=== PATIENT | female | born 1935 | race Caucasian/White ===

== ENCOUNTER 2016-07-12 | Outpatient (CLI) | END 2016-07-12 18:16 | disposition EMS.NT ==

== ENCOUNTER 2016-10-25 11:09 | Outpatient (CLI) | payer MEDICARE, OTHER | END 2016-10-25 11:10 | disposition home or self-care (01) | DX: Z12.31 Encounter for screening mammogram for malignant neoplasm of breast (principal); Z79.899 Other long term (current) drug therapy; H26.9 Unspecified cataract; H40.9 Unspecified glaucoma; N30.20 Other chronic cystitis without hematuria; I63.9 Cerebral infarction, unspecified; M81.0 Age-related osteoporosis without current pathological fracture; K59.00 Constipation, unspecified; R32 Unspecified urinary incontinence; R73.01 Impaired fasting glucose | CPT/HCPCS: 36415; 80053; 80061; 82306; 83036; 84443; 85025; G0202 ==

== ENCOUNTER 2016-10-28 06:45 | Outpatient (CLI) | payer MEDICARE, OTHER | END 2016-10-28 06:46 | disposition home or self-care (01) | DX: N30.20 Other chronic cystitis without hematuria (principal); Z79.899 Other long term (current) drug therapy; H26.9 Unspecified cataract; H40.9 Unspecified glaucoma; I63.9 Cerebral infarction, unspecified; M81.0 Age-related osteoporosis without current pathological fracture; R73.01 Impaired fasting glucose; K59.00 Constipation, unspecified; R32 Unspecified urinary incontinence ==

== ENCOUNTER 2017-10-28 14:53 | Outpatient (CLI) | payer MEDICARE, OTHER ==
--- NOTE | 2017-10-29 13:43 | Ultrasound Report ---
CAROTID DUPLEX: 10/28/2017. INDICATION: Transient vision loss, left eye, history of stroke. TECHNIQUE: Real-time sonographic vascular imaging was performed by the senior energy analyst through the carotid arteries utilizing both color-flow and Doppler spectral analysis. Multiple international sales representative static images were saved for review. RIGHT 3 Vessel PSV cm/sec EDV cm/sec ICA/CCA RSV Ratio Degree of Stenosis Plaque Estimate % RCCA Prox 119 -- -- RCCA Dist 89 1 -- RECA 91 -- -- RT BULB 68 7 0.76 EDD Prox 52 8 0.58 EDD Mid 77 15 0.86 EDD Dist 56 1 0.62 RVA 94 -- -- RVA flow direction: Antegrade LEFT 3 Vessel PSV cm/sec EDV cm/sec ICA/CCA RSV Ratio Degree of Stenosis Plaque Estimate % LCCA Prox 94 -- -- LCCA Dist 83 1 -- LECA 79 -- -- LFT BULB 86 1 1.0 LICA Prox 116 23 1.5 LICA Mid 97 21 1.1 LICA Dist 108 29 1.3 LVA 130 -- -- LVA flow direction: Antegrade Velocity criteria are extrapolated from diameter data as defined by the Society of Radiologists in Ultrasound Consensus Conference Radiology 2003; 229; 340-346. 3 Degree of Stenosis % ICA PSV cm/sec ICA EDV cm/sec ICA/CCA PSV Ratio Plaque Estimate % Normal < 125 < 40 < 2.0 None <50 < 125 < 40 < 2.0 < 50 50-69 125-130 40-100 2.0-4.0 >/=50 >/=70 but less than near occlusion > 230 > 100 > 4.0 >/=50 Near occlusion High, low or undetectable Variable Variable Visible Total occlusion Undetectable Not applicable Not applicable No detectable lumen FINDINGS RIGHT: There is minimal plaquing in the right carotid bifurcation, without evidence of a focal hemodynamically significant stenosis. LEFT: There is minimal plaquing in the left carotid bifurcation, without evidence of a focal hemodynamically significant stenosis. The vertebral arteries demonstrate antegrade flow bilaterally. IMPRESSION: MINIMAL PLAQUING. NO EVIDENCE OF A FOCAL HEMODYNAMICALLY SIGNIFICANT CAROTID STENOSIS. TD: 10/29/2017 13:42 Table rec'd/completed 10/30/2017 09:44 derick NAILS
== END 2017-10-28 14:54 | disposition home or self-care (01) ==
LOC: DI 14:53
PROVIDERS: ATTEND Internal Medicine
DX: H53.122 Transient visual loss, left eye (principal); Z86.73 Personal history of transient ischemic attack (TIA), and cerebral infarction without residual deficits
CPT/HCPCS: 93880

== ENCOUNTER 2017-12-16 11:24 | Outpatient (CLI) | payer MEDICARE, OTHER ==
[2017-12-16 12:12] LABS: BASOPHILS % (AUTO) 0.6 %; EOSINOPHILS # (AUTO) 0.1 10^3/uL (0.0-0.7); EOSINOPHILS % (AUTO) 2.2 %; HGB - HEMOGLOBIN 14.7 g/dL (12.0-16.0); LYMPHOCYTES # (AUTO) 1.8 10^3/uL (1.5-3.5); LYMPHOCYTES % (AUTO) 28.4 %; MEAN CORPUSCULAR HEMOGLOBIN 30.4 pg (27.0-31.0); MEAN CORPUSCULAR HGB CONC 33.4 g/dL (32.0-36.0); MONOCYTES # (AUTO) 0.5 10^3/uL (0.0-1.0); MONOCYTES % (AUTO) 8.4 %; NEUTROPHILS # (AUTO) 3.7 10^3/uL (1.5-6.6); NEUTROPHILS % (AUTO) 60.4 %; PLT - PLATELET COUNT 233 10^3/uL (130-450); RED BLOOD COUNT 4.84 10^6/uL (4.20-5.40); RED CELL DISTRIBUTION WIDTH 13.9 % (12.0-15.0); WHITE BLOOD COUNT 6.2 x10^3/uL (4.8-10.8)
[2017-12-16 12:28] LABS: ALBUMIN/GLOBULIN RATIO 1.2 (1.0-2.2); ALKALINE PHOSPHATASE 71 IU/L (42-121); ALT ALANINE AMINOTRANSFERASE 23 IU/L (10-60); AST ASPARTATE AMINOTRANSFERASE 24 IU/L (10-42); BILIRUBIN,TOTAL 0.6 mg/dL (0.2-1.0); BUN - BLOOD UREA NITROGEN 16 mg/dL (6-20); CALCIUM 10.1 mg/dL (8.5-10.3); CARBON DIOXIDE - CO2 28 mmol/L (21-32); CHLORIDE 106 mmol/L (101-111); CHOL/HDL RATIO 2.7 (<4.4); CHOLESTEROL 194 mg/dL; CREATININE 0.6 mg/dL (0.4-1.0); GFR - MDRD 96 (>89); GLUCOSE 91 mg/dL (70-100); HDL CHOLESTEROL 72 mg/dL; LDL CHOLESTEROL,CALCULATED 107 mg/dL; LDL/HDL RATIO 1.5 (<4.4); SODIUM 140 mmol/L (135-145); TOTAL PROTEIN 7.3 g/dL (6.7-8.2); VLDL CHOLESTEROL 15 mg/dL
[2017-12-16 13:07] LABS: HB2 TOTAL 16.2 g/dL; HEMOGLOBIN A1C 0.54 g/dL; HEMOGLOBIN A1C % 5.2 % (4.6-6.2)
== END 2017-12-16 11:25 | disposition home or self-care (01) ==
LOC: LAB 11:24
PROVIDERS: ATTEND Internal Medicine
DX: Z79.899 Other long term (current) drug therapy (principal); H26.9 Unspecified cataract; H40.9 Unspecified glaucoma; G43.909 Migraine, unspecified, not intractable, without status migrainosus; I63.9 Cerebral infarction, unspecified; M81.0 Age-related osteoporosis without current pathological fracture; Z13.6 Encounter for screening for cardiovascular disorders
CPT/HCPCS: 36415; 80053; 80061; 82306; 83036; 83721; 84443; 85025

== ENCOUNTER 2017-12-16 12:15 | Outpatient (CLI) | payer MEDICARE, OTHER ==
--- NOTE | 2017-12-17 13:41 | Mammography Report ---
Procedure Date: 12/16/2017 Accession Number: [id number] / [id number] Procedure: JOSE LUIS - Screening Mammo Dig Bilat CPT Code: FULL RESULT: EXAM: Screening Mammo Dig Bilat DATE: 12/16/2017 11:48 AM CLINICAL HISTORY: 82-year-old nulliparous patient for screening COMPARISON: 10/25/2016, 09/14/2015, 08/24/2015, 01/27/2014, 01/23/2012, 11/22/2010 TECHNIQUE: Bilateral CC and MLO views were obtained. Positioning is again limited by patient's general condition. FINDINGS: The breasts demonstrate scattered fibroglandular densities bilaterally. A few punctate, typical of benign calcifications are present. No suspicious masses, clustered microcalcifications, or regions of architectural distortion are identified. IMPRESSION: Benign findings RECOMMENDATION: Routine annual screening unless otherwise clinically indicated. BIRADS CATEGORY 2: Benign findings STANDARD QUALIFYING STATEMENTS: 1. This examination was reviewed with the aid of Computer-Aided Detection (CAD). 2. A negative or benign imaging report should not delay biopsy if clinically suspicious findings are present. Consider surgical consultation if warrented. More than 5% of cancers are not identified by imaging. 3. Dense breasts may obscure an underlying neoplasm.
== END 2017-12-16 12:16 | disposition home or self-care (01) ==
LOC: DI 12:15
PROVIDERS: ATTEND Internal Medicine
DX: Z12.31 Encounter for screening mammogram for malignant neoplasm of breast (principal)
CPT/HCPCS: 77067

== ENCOUNTER 2020-08-26 10:46 | Outpatient (CLI) | payer MEDICARE, OTHER ==
[2020-08-26 14:56] LABS: BASOPHILS % (AUTO) 0.5 %; EOSINOPHILS # (AUTO) 0.1 10^3/uL (0.0-0.7); EOSINOPHILS % (AUTO) 1.2 %; HGB - HEMOGLOBIN 13.8 g/dL (12.0-16.0); LYMPHOCYTES # (AUTO) 1.7 10^3/uL (1.5-3.5); LYMPHOCYTES % (AUTO) 28.7 %; MEAN CORPUSCULAR HEMOGLOBIN 28.9 pg (27.0-31.0); MEAN CORPUSCULAR HGB CONC 31.4 g/dL (32.0-36.0); MEAN CORPUSCULAR VOLUME 91.8 fL (81.0-99.0); MEAN PLATELET VOLUME 10.8 fL (7.9-10.8); MONOCYTES # (AUTO) 0.4 10^3/uL (0.0-1.0); MONOCYTES % (AUTO) 7.4 %; NEUTROPHILS # (AUTO) 3.7 10^3/uL (1.5-6.6); NEUTROPHILS % (AUTO) 61.9 %; PLT - PLATELET COUNT 233 10^3/uL (130-450); RED BLOOD COUNT 4.78 10^6/uL (4.20-5.40); RED CELL DISTRIBUTION WIDTH 14.6 % (12.0-15.0)
[2020-08-26 15:12] LABS: HEMOGLOBIN A1c% 5.5 % (4.27-6.07)
[2020-08-26 15:20] LABS: ALBUMIN 4.2 g/dL (3.2-5.5); ALBUMIN/GLOBULIN RATIO 1.2 (1.0-2.2); ALKALINE PHOSPHATASE 93 IU/L (42-121); ALT ALANINE AMINOTRANSFERASE 18 IU/L (10-60); AST ASPARTATE AMINOTRANSFERASE 24 IU/L (10-42); BILIRUBIN,TOTAL 0.7 mg/dL (0.2-1.0); BUN - BLOOD UREA NITROGEN 17 mg/dL (6-20); CALCIUM 9.8 mg/dL (8.5-10.3); CARBON DIOXIDE - CO2 26 mmol/L (21-32); CHLORIDE 102 mmol/L (101-111); CHOL/HDL RATIO 2.4 (<4.4); CHOLESTEROL 193 mg/dL; CREATININE 0.7 mg/dL (0.4-1.0); GLUCOSE 76 mg/dL (70-100); HDL CHOLESTEROL 82 mg/dL; LDL CHOLESTEROL,CALCULATED 101 mg/dL; LDL/HDL RATIO 1.2 (<4.4); TOTAL PROTEIN 7.7 g/dL (6.7-8.2); VLDL CHOLESTEROL 10 mg/dL
== END 2020-08-26 10:47 | disposition home or self-care (01) ==
LOC: LAB.S 10:46
PROVIDERS: ATTEND Internal Medicine
DX: Z01.84 Encounter for antibody response examination (principal); H26.9 Unspecified cataract; Z13.6 Encounter for screening for cardiovascular disorders; Z79.899 Other long term (current) drug therapy; H40.9 Unspecified glaucoma; K59.00 Constipation, unspecified; N30.90 Cystitis, unspecified without hematuria; R73.01 Impaired fasting glucose; B34.9 Viral infection, unspecified; M81.0 Age-related osteoporosis without current pathological fracture
CPT/HCPCS: 36415; 80053; 80061; 82306; 83036; 83721; 84443; 85025; 86769

== ENCOUNTER 2020-12-01 08:46 | Outpatient (CLI) | payer MEDICARE, OTHER | END 2020-12-01 08:47 | disposition EMS.NT | LOC: EMS 08:46 | DX: Z03.89 Encounter for observation for other suspected diseases and conditions ruled out (principal) ==

== ENCOUNTER 2020-12-02 12:20 | Outpatient (CLI) | payer MEDICARE, OTHER | END 2020-12-02 12:21 | disposition critical access hospital (66) | LOC: EMS 12:20 | DX: R41.0 Disorientation, unspecified (principal) | CPT/HCPCS: A0425; A0429 ==

== ENCOUNTER 2020-12-02 12:55 | Emergency (ER) | payer MEDICARE, OTHER ==
[2020-12-02] MEDS ORDERED: SODIUM CHLORIDE 0.9% 1,000 ML IV STA ×2 (13:35→13:36)
[2020-12-02 13:41] LABS: BASOPHILS # (AUTO) 0.1 10^3/uL (0.0-0.1); BASOPHILS % (AUTO) 0.3 %; EOSINOPHILS # (AUTO) 0.1 10^3/uL (0.0-0.7); EOSINOPHILS % (AUTO) 0.7 %; HCT - HEMATOCRIT 33.9 % (37.0-47.0); HGB - HEMOGLOBIN 10.8 g/dL (12.0-16.0); LYMPHOCYTES # (AUTO) 1.2 10^3/uL (1.5-3.5); LYMPHOCYTES % (AUTO) 7.2 %; MEAN CORPUSCULAR HGB CONC 31.9 g/dL (32.0-36.0); MEAN CORPUSCULAR VOLUME 90.9 fL (81.0-99.0); MEAN PLATELET VOLUME 10.4 fL (7.9-10.8); MONOCYTES # (AUTO) 1.2 10^3/uL (0.0-1.0); MONOCYTES % (AUTO) 7.1 %; NEUTROPHILS # (AUTO) 13.8 10^3/uL (1.5-6.6); NEUTROPHILS % (AUTO) 84.1 %; PLT - PLATELET COUNT 174 10^3/uL (130-450); RED BLOOD COUNT 3.73 10^6/uL (4.20-5.40); RED CELL DISTRIBUTION WIDTH 14.8 % (12.0-15.0); WHITE BLOOD COUNT 16.4 x10^3/uL (4.8-10.8)
--- NOTE | 2020-12-02 13:42 | ED Physician Documentation ---
PD HPI ALTERED MENTAL STATUS - Stated complaint Stated Complaint: AMS - Chief complaint Chief Complaint: Neuro - History obtained from History obtained from: Patient, EMS - History of Present Illness Timing - duration: Days (Several days) Timing - details: Gradual onset Quality / character: Confused, Disoriented - Additional information Additional information: Limited history is available. Patient is an 85-year-old female who reportedly lives at home with caregivers. EMS states that they saw her yesterday for a fall, has had increasing altered mental status for the past week or so. Caregiver called 911 today as it seems worse than it has been. They state that she had a fever 101.8 at home. 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 No other history is available at this time. Unclear what her normal baseline is, but EMS states that this is a significant change for her. 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 - Present Medications Home Medications: Ambulatory Orders Medication Instructions Recorded Confirmed Mirabegron [Myrbetriq] 25 mg PO DAILY 12/02/20 12/02/20 - Allergies Allergies/Adverse Reactions: Allergies Allergy/AdvReac Type Severity Reaction Status Date / Time No Known Drug Allergies Allergy Verified 12/02/20 13:07 PD ED PE NORMAL - Vitals Vital signs reviewed: Yes - General General: No acute distress, Well developed/nourished - HEENT HEENT: Atraumatic, PERRL, Moist mucous membranes, Pharynx benign - Neck Neck: Supple, no meningeal sign - Cardiac Cardiac: RRR, Strong equal pulses - Respiratory Respiratory: No respiratory distress, Clear bilaterally - Abdomen Abdomen: Soft, Non tender, Non distended - Derm Derm: Warm and dry, Other (Large fungal rash underneath the bilateral breasts) - Extremities Extremities: No edema, No calf tenderness / cord - Neuro Neuro: Other (Alert, oriented to person only, contractured) Eye Opening: Spontaneous Motor: Localizes to Pain Verbal: Confused GCS Score: 13 Results - Vitals Vitals: Vital Signs - 24 hr 12/02/20 12/02/20 12/02/20 13:03 13:37 15:00 Temperature 37.4 C 37.2 C 36.7 C Heart Rate 106 H 89 92 Respiratory 12 20 22 Rate Blood Pressure 117/50 L 99/78 125/57 L O2 Saturation 94 95 97 12/02/20 12/02/20 12/02/20 15:30 16:00 16:30 Temperature 36.2 C L 36.4 C L 38.0 C H Heart Rate 95 95 95 Respiratory 16 16 16 Rate Blood Pressure 127/94 H 114/69 132/78 H O2 Saturation 97 97 95 12/02/20 17:00 Temperature 38.0 C H Heart Rate 97 Respiratory 16 Rate Blood Pressure 125/65 O2 Saturation 97 Oxygen O2 Source Room air - EKG (time done) 1449 Rate: Rate (enter#) (106) Rhythm: Atrial fibrillation [place]: Normal - Labs Labs: Laboratory Tests 12/02/20 12/02/20 12/02/20 13:19 13:19 13:19 WBC 16.4 H RBC 3.73 L Hgb 10.8 L Hct 33.9 L MCV 90.9 MCH 29.0 MCHC 31.9 L RDW 14.8 Plt Count 174 MPV 10.4 Neut # (Auto) 13.8 H Lymph # (Auto) 1.2 L Wise # (Auto) 1.2 H Eos # (Auto) 0.1 Baso # (Auto) 0.1 Absolute Nucleated RBC 0.00 Nucleated RBC % 0.0 PT INR APTT Sodium 139 Potassium 3.6 Chloride 104 Carbon Dioxide 26 Anion Gap 9.0 BUN 40 H Creatinine 1.1 H Estimated GFR (MDRD) 47 L Glucose 115 H Lactic Acid Calcium 8.4 L Total Bilirubin 1.1 H AST 72 H ALT 38 Alkaline Phosphatase 74 Troponin I High Sens 60.7 H* Total Protein 6.6 L Albumin 3.4 Globulin 3.2 Albumin/Globulin Ratio 1.1 Lipase 19 L Urine Color Urine Clarity Urine pH Ur Specific Mccrory Urine Protein Urine Glucose (UA) Urine Ketones Urine Occult Blood Urine Nitrite Urine Bilirubin Urine Urobilinogen Ur Leukocyte Esterase Urine RBC Urine WBC Ur Squamous Epith Cells Urine Bacteria Ur Microscopic Review Urine Culture Comments Nasal Adenovirus (PCR) Nasal B. parapertussis DNA (PCR) Nasal Coronavir 229E PCR Nasal Coronavir HKU1 PCR Nasal Coronavir NL63 PCR Nasal Coronavir OC43 PCR Nasal Enterovir/Rhinovir PCR Nasal Influenza B PCR Nasal Influenza A PCR Nasal Parainfluen 1 PCR Nasal Parainfluen 2 PCR Nasal Parainfluen 3 PCR Nasal Parainfluen 4 PCR Nasal RSV (PCR) Nasal B.pertussis DNA PCR Nasal C.pneumoniae (PCR) Brian Human Metapneumo PCR Nasal M.pneumoniae (PCR) Nasal SARS-CoV-2 (PCR) 12/02/20 12/02/20 12/02/20 13:19 13:36 14:33 WBC RBC Hgb Hct MCV MCH MCHC RDW Plt Count MPV Neut # (Auto) Lymph # (Auto) Wise # (Auto) Eos # (Auto) Baso # (Auto) Absolute Nucleated RBC Nucleated RBC % PT 15.3 H INR 1.4 H APTT 31.4 Sodium Potassium Chloride Carbon Dioxide Anion Gap BUN Creatinine Estimated GFR (MDRD) Glucose Lactic Acid 1.8 Calcium Total Bilirubin AST ALT Alkaline Phosphatase Troponin I High Sens Total Protein Albumin Globulin Albumin/Globulin Ratio Lipase Urine Color LT RED Urine Clarity CLOUDY Urine pH 5.5 Ur Specific Mccrory 1.025 Urine Protein 100 H Urine Glucose (UA) NEGATIVE Urine Ketones NEGATIVE Urine Occult Blood LARGE H Urine Nitrite POSITIVE H Urine Bilirubin NEGATIVE Urine Urobilinogen 0.2 (NORMAL) Ur Leukocyte Esterase LARGE H Urine RBC TNTC H Urine WBC >25 H Ur Squamous Epith Cells RARE Squamous Urine Bacteria Many H Ur Microscopic Review INDICATED Urine Culture Comments INDICATED Nasal Adenovirus (PCR) Nasal B. parapertussis DNA (PCR) Nasal Coronavir 229E PCR Nasal Coronavir HKU1 PCR Nasal Coronavir NL63 PCR Nasal Coronavir OC43 PCR Nasal Enterovir/Rhinovir PCR Nasal Influenza B PCR Nasal Influenza A PCR Nasal Parainfluen 1 PCR Nasal Parainfluen 2 PCR Nasal Parainfluen 3 PCR Nasal Parainfluen 4 PCR Nasal RSV (PCR) Nasal B.pertussis DNA PCR Nasal C.pneumoniae (PCR) Brian Human Metapneumo PCR Nasal M.pneumoniae (PCR) Nasal SARS-CoV-2 (PCR) 12/02/20 15:41 WBC RBC Hgb Hct MCV MCH MCHC RDW Plt Count MPV Neut # (Auto) Lymph # (Auto) Wise # (Auto) Eos # (Auto) Baso # (Auto) Absolute Nucleated RBC Nucleated RBC % PT INR APTT Sodium Potassium Chloride Carbon Dioxide Anion Gap BUN Creatinine Estimated GFR (MDRD) Glucose Lactic Acid Calcium Total Bilirubin AST ALT Alkaline Phosphatase Troponin I High Sens Total Protein Albumin Globulin Albumin/Globulin Ratio Lipase Urine Color Urine Clarity Urine pH Ur Specific Mccrory Urine Protein Urine Glucose (UA) Urine Ketones Urine Occult Blood Urine Nitrite Urine Bilirubin Urine Urobilinogen Ur Leukocyte Esterase Urine RBC Urine WBC Ur Squamous Epith Cells Urine Bacteria Ur Microscopic Review Urine Culture Comments Nasal Adenovirus (PCR) NOT DETECTED Nasal B. parapertussis DNA (PCR) NOT DETECTED Nasal Coronavir 229E PCR NOT DETECTED Nasal Coronavir HKU1 PCR NOT DETECTED Nasal Coronavir NL63 PCR NOT DETECTED Nasal Coronavir OC43 PCR NOT DETECTED Nasal Enterovir/Rhinovir PCR NOT DETECTED Nasal Influenza B PCR NOT DETECTED Nasal Influenza A PCR NOT DETECTED Nasal Parainfluen 1 PCR NOT DETECTED Nasal Parainfluen 2 PCR NOT DETECTED Nasal Parainfluen 3 PCR NOT DETECTED Nasal Parainfluen 4 PCR NOT DETECTED Nasal RSV (PCR) NOT DETECTED Nasal B.pertussis DNA PCR NOT DETECTED Nasal C.pneumoniae (PCR) NOT DETECTED Brian Human Metapneumo PCR NOT DETECTED Nasal M.pneumoniae (PCR) NOT DETECTED Nasal SARS-CoV-2 (PCR) NOT DETECTED - Rads (name of study) head CT Radiology: Prelim report reviewed, EMP read contemporaneously, See rad report (1. No acute intracranial disease process. ) abd/pelvis CT Radiology: Prelim report reviewed, EMP read contemporaneously, See rad report PD MEDICAL DECISION MAKING - ED course Complexity details: reviewed results, re-evaluated patient, considered differential, d/w patient ED course: 85-year-old female with pyelonephritis and a 1.8 cm left UPJ stone with hydronephrosis, likely secondary to obstructive uropathy. She was febrile at home. Elevated white count here. Given IV fluids and Rocephin. Mental status did improve. Vital signs remained stable. Discussed the case with Dr. Michael, urology at [facility] who graciously accepts in transfer. Discussed with Dr. Rosales, hospitalist who also accepts in transfer. Patient will be transferred for further care. This document was made in part using voice recognition software. While efforts are made to proofread this document, sound alike and grammatical errors may occur. CT ABD/PELVIS: 1. 1.8 cm left UPJ stone causing mild left hydronephrosis. 2. Decreased and slightly striated postcontrast enhancement involving the left kidney concerning for pyelonephritis superimposed upon obstructive uropathy. There is also a small air locule and inferior left renal calyx concerning for flexion with gas-forming organism. 3. Cardiomegaly. Departure - Departure Disposition: 02 Transfer Acute Care Hosp Clinical Impression: Pyelonephritis, Ureteral stone Condition: Stable Discharge Date/Time: 12/02/20 17:22
--- OUTSIDE RECORDS SUMMARY | 2020-12-02 13:48 | EXTERNAL MEDICAL SUMMARY RPT | Continuity of Care Document ---
:1935 Demographics Phone Unavailable Preferred Language Unknown Marital Status Unknown Ep[employer]opalian Affiliation Unknown Race Unknown Ethnic Group Unknown Author Organization [facility] Address [address] [place] [address] Phone Allergies Encounters Medications Problems Results
[2020-12-02 13:49] LABS: INR 1.4 (0.8-1.2); PT - PROTHROMBIN TIME 15.3 secs (9.9-12.6)
[2020-12-02 13:52] LABS: ALBUMIN 3.4 g/dL (3.2-5.5); ALBUMIN/GLOBULIN RATIO 1.1 (1.0-2.2); BILIRUBIN,TOTAL 1.1 mg/dL (0.2-1.0); CALCIUM 8.4 mg/dL (8.5-10.3); CREATININE 1.1 mg/dL (0.4-1.0); POTASSIUM 3.6 mmol/L (3.5-5.0); TOTAL PROTEIN 6.6 g/dL (6.7-8.2)
[2020-12-02 13:55] LABS: BILIRUBIN,URINE NEGATIVE (NEGATIVE); GLUCOSE, URINE (UA) NEGATIVE (NEGATIVE); KETONES,URINE (UA) NEGATIVE (NEGATIVE); LEUKOCYTE ESTERASE, URINE LARGE (NEGATIVE); NITRITE,URINE POSITIVE (NEGATIVE); OCCULT BLOOD,URINE LARGE (NEGATIVE); PH,URINE 5.5 PH (5.0-7.5); PROTEIN,URINE 100 mg/dL (NEGATIVE); UROBILINOGEN,URINE 0.2 (NORMAL) E.U./dL (NORMAL)
[2020-12-02 13:57] LABS: CLARITY,URINE CLOUDY (CLEAR)
[2020-12-02] MEDS ORDERED: cefTRIAXone 1 GM VIAL IVP STA (14:06)
[2020-12-02] MEDS ORDERED: IOVERSOL 320 100 ML VIAL IVP ONE ×2 (14:13→15:10)
[2020-12-02 14:40] LABS: PARTIAL THROMBOPLASTIN TIME 31.4 secs (24.9-33.3)
--- NOTE | 2020-12-02 14:41 | XRAY Report ---
PROCEDURE: Chest 1 View X-Ray INDICATIONS: Chest pain TECHNIQUE: One view of the chest was acquired. COMPARISON: FINDINGS: Surgical changes and devices: None. Lungs and pleura: No pleural effusions or pneumothorax. Lungs are clear where visualized; left lung base is incompletely imaged.. Mediastinum: Mediastinal contours appear normal. Heart is enlarged Bones and chest wall: No suspicious bony lesions. Overlying soft tissues appear unremarkable. IMPRESSION: No acute cardiopulmonary disease process. Reviewed by: India Leung MD, PhD on 12/02/2020 2:39 PM PDT Approved by: India Leung MD, PhD on 12/02/2020 2:39 PM PDT Station ID: [id number]
--- NOTE | 2020-12-02 14:48 | CT Report ---
PROCEDURE: Abdomen/Pelvis W INDICATIONS: fever, UTI CONTRAST: IV CONTRAST: Optiray 320 ml: 100 PO CONTRAST: *NO PO CONTRAST TECHNIQUE: After the administration of intravenous contrast, 5 mm thick sections acquired from the diaphragms to the symphysis. 5 mm thick coronal and sagittal reformats were acquired. For radiation dose reducti on, the following was used: automated exposure control, adjustment of mA and/or kV according to jose r ent size. COMPARISON: 01/23/2012. FINDINGS: Image quality: Excellent. ABDOMEN: Lung bases: Lung bases are clear. Heart is enlarged. Solid organs: Liver and spleen are normal in size and enhancement. Gallbladder contains multiple ga llstones Biliary system is non dilated. Pancreas enhances normally. No adrenal nodules. 1.8 cm sto ne noted in the left UPJ causing mild left side hydronephrosis. 5.1 cm left renal cyst. Left kidney d emonstrates decreased, slightly striated enhancement relative to the right concerning for pyelonephri tis superimposed upon obstruction. Small air locule noted in the inferior left renal calyx concerning for infection with infection with gas-forming organism. Peritoneum and bowel: Bowel loops demonstrate normal wall thickness and caliber. No free fluid or a ir. Nodes and vessels: No retroperitoneal or mesenteric adenopathy by size criteria. Aorta and inferior vena cava are normal in size. Scattered atherosclerotic calcifications are noted in the abdominal an d pelvic vasculature. Miscellaneous: No ventral hernias. PELVIS: Genitourinary: Bladder is nearly completely decompressed the time of imaging which limits diagnostic sensitivity of study February pathology, however no gross pathology identified. Miscellaneous: No inguinal hernias or adenopathy. Bones: Status post ORIF of right proximal femur fracture. No suspicious bony lesions. No vertebral body compression fractures. Spine degenerative disc disease and facet arthropathy are noted. IMPRESSION: 1. 1.8 cm left UPJ stone causing mild left hydronephrosis. 2. Decreased and slightly striated postcontrast enhancement involving the left kidney concerning for pyelonephritis superimposed upon obstructive uropathy. There is also a small air locule and inferior left renal calyx concerning for flexion with gas-forming organism. 3. Cardiomegaly. Reviewed by: India Leung MD, PhD on 12/02/2020 2:47 PM PDT Approved by: India Leung MD, PhD on 12/02/2020 2:47 PM PDT Station ID: [id number]
--- NOTE | 2020-12-02 14:51 | CT Report ---
PROCEDURE: HEAD WO INDICATIONS: fall, altered mental status TECHNIQUE: Noncontrast 4.5 mm thick angled axial sections acquired from the foramen magnum to the vertex. For r adiation dose reduction, the following was used: automated exposure control, adjustment of mA and/or kV according to patient size. COMPARISON: None FINDINGS: Image quality: Excellent. CSF spaces: Basal cisterns are patent. No extra-axial fluid collections. The ventricles are symmet mauro in size and shape. Brain: No intracranial bleeds or masses. Chronic left basal ganglia infarct. There is cerebral volu me loss for age, with resultant ventricular and sulcal prominence. There are periventricular and gino p white matter chronic small vessel ischemic changes. There is intracranial internal carotid artery atherosclerosis. Skull and face: Calvarium and visualized facial bones appear intact, without suspicious lesions. Sinuses: Visualized sinuses and mastoids are clear. IMPRESSION: 1. No acute intracranial disease process. 2. No fracture. 3. No intracranial hemorrhage. Reviewed by: India Leung MD, PhD on 12/02/2020 2:50 PM PDT Approved by: India Leung MD, PhD on 12/02/2020 2:50 PM PDT Station ID: [id number]
[2020-12-02 14:55] LABS: BACTERIA,URINE Many /HPF (None Seen); RBC,URINE TNTC /HPF (0-5); SQUAMOUS EPITHELIAL CELL,UR RARE Squamous (<= Few); WBC,URINE >25 /HPF (0-5)
[2020-12-02 16:42] LABS: B. PARAPERTUSSIS- RESP PCR PAN NOT DETECTED; B. PERTUSSIS- RESP PCR PANEL NOT DETECTED; C. PNEUMONIAE- RESP PCR PANEL NOT DETECTED; CORONAVIRUS 229E-RESP PCR NOT DETECTED; CORONAVIRUS HKU1-RESP PCR NOT DETECTED; CORONAVIRUS NL63-RESP PCR NOT DETECTED; CORONAVIRUS OC43-RESP PCR NOT DETECTED; HUMAN METAPNEUMOVIRUS NOT DETECTED; INFLUENZA A- RESP PCR PANEL NOT DETECTED; INFLUENZA B - RESP PCR PANEL NOT DETECTED; M. PNEUMONIAE- RESP PCR PANEL NOT DETECTED; PARAINFLUENZA VIRUS 1 NOT DETECTED; PARAINFLUENZA VIRUS 2 NOT DETECTED; PARAINFLUENZA VIRUS 3 NOT DETECTED; PARAINFLUENZA VIRUS 4 NOT DETECTED; RHINOVIRUS/ENTEROVIRUS NOT DETECTED; RSV- RESP PCR PANEL NOT DETECTED; SARS-CoV-2 -RESP PCR PANEL NOT DETECTED
[2020-12-02 17:16] VITALS: BP 125/65
== END 2020-12-02 17:22 | disposition short-term general hospital (02) ==
LOC: EDUNIT# → ED 12:55
DX: N13.6 Pyonephrosis (principal); I48.91 Unspecified atrial fibrillation; B36.8 Other specified superficial mycoses; M24.50 Contracture, unspecified joint; I69.998 Other sequelae following unspecified cerebrovascular disease; Z20.822 Contact with and (suspected) exposure to COVID-19
CPT/HCPCS: 36415; 70450; 71045; 74177; 80053; 81001; 83605; 83690; 84484; 85025; 85610; 85730; 87040; 87086; 87150; 87181; 87631; 93005; 96361; 96374; 99285; Q9967; 0202U; 81003

== ENCOUNTER 2020-12-02 17:23 | Outpatient (CLI) | payer MEDICARE, OTHER | END 2020-12-02 17:24 | disposition short-term general hospital (02) | LOC: EMS 17:23 | PROVIDERS: ATTEND Emergency Medicine | DX: N12 Tubulo-interstitial nephritis, not specified as acute or chronic (principal); N13.9 Obstructive and reflux uropathy, unspecified | CPT/HCPCS: A0425; A0426 ==

== ENCOUNTER 2020-12-28 12:15 | Outpatient (CLI) | payer MEDICARE, OTHER | END 2020-12-28 23:59 | disposition home or self-care (01) | LOC: LAB.R 12:15 | PROVIDERS: ATTEND Family Medicine | DX: N39.0 Urinary tract infection, site not specified (principal) | CPT/HCPCS: 87086 ==

== ENCOUNTER 2021-01-11 08:00 | Outpatient (CLI) | payer MEDICARE, OTHER ==
[2021-01-11 21:24] LABS: BASOPHILS % (AUTO) 0.4 %; EOSINOPHILS # (AUTO) 0.5 10^3/uL (0.0-0.7); EOSINOPHILS % (AUTO) 4.8 %; HCT - HEMATOCRIT 37.4 % (37.0-47.0); HGB - HEMOGLOBIN 11.7 g/dL (12.0-16.0); LYMPHOCYTES # (AUTO) 3.1 10^3/uL (1.5-3.5); LYMPHOCYTES % (AUTO) 29.3 %; MEAN CORPUSCULAR HEMOGLOBIN 28.3 pg (27.0-31.0); MEAN CORPUSCULAR HGB CONC 31.3 g/dL (32.0-36.0); MEAN CORPUSCULAR VOLUME 90.6 fL (81.0-99.0); MEAN PLATELET VOLUME 9.8 fL (7.9-10.8); MONOCYTES # (AUTO) 0.7 10^3/uL (0.0-1.0); MONOCYTES % (AUTO) 6.8 %; NEUTROPHILS # (AUTO) 6.1 10^3/uL (1.5-6.6); NEUTROPHILS % (AUTO) 58.3 %; PLT - PLATELET COUNT 359 10^3/uL (130-450); RED BLOOD COUNT 4.13 10^6/uL (4.20-5.40); RED CELL DISTRIBUTION WIDTH 14.6 % (12.0-15.0); WHITE BLOOD COUNT 10.5 x10^3/uL (4.8-10.8)
[2021-01-11 21:32] LABS: CALCIUM 9.1 mg/dL (8.5-10.3); CREATININE 0.6 mg/dL (0.4-1.0); POTASSIUM 2.7 mmol/L (3.5-5.0)
== END 2021-01-11 23:59 | disposition home or self-care (01) ==
LOC: LAB.R 08:00
DX: I48.91 Unspecified atrial fibrillation (principal); R53.1 Weakness
CPT/HCPCS: 80048; 85025

== ENCOUNTER 2021-01-15 10:47 | Outpatient (CLI) | payer MEDICARE, OTHER ==
--- NOTE | 2021-01-15 14:02 | XRAY Report ---
PROCEDURE: Femur 2V RT INDICATIONS: S/P CLOSED FX OF FEMUR TECHNIQUE: AP and lateral views of the femur were acquired. COMPARISON: None. FINDINGS: Bones: Remote hip ORIF. There is an IM lex which bridges a comminuted distal shaft fracture of the fe mur. There is mild displacement of fracture fragment posteriorly. There is no calcified formation maximiliano dent. No suspicious bony lesions. Soft tissues: No suspicious soft tissue calcifications or masses. Diffuse SFA calcifications. IMPRESSION: 1. An IM lex bridges a comminuted distal femoral shaft fracture. There are no prior studies available for comparison. It is assumed that the fracture occurred prior to the ORIF. There is no evidence of callus formation. Reviewed by: Sheldon Oliva MD on 01/15/2021 2:00 PM PDT Approved by: Sheldon Oliva MD on 01/15/2021 2:00 PM PDT Station ID: [id number]
== END 2021-01-15 10:48 | disposition home or self-care (01) ==
LOC: DI 10:47
PROVIDERS: ATTEND Orthopaedic Surgery
DX: S72.351A Displaced comminuted fracture of shaft of right femur, initial encounter for closed fracture (principal)

== ENCOUNTER 2021-01-22 07:00 | Outpatient (CLI) | payer MEDICARE, OTHER ==
[2021-01-22 13:37] LABS: CALCIUM 9.3 mg/dL (8.5-10.3); CREATININE 0.8 mg/dL (0.4-1.0); POTASSIUM 4.3 mmol/L (3.5-5.0)
== END 2021-01-22 23:59 | disposition home or self-care (01) ==
LOC: LAB.R 07:00
PROVIDERS: ATTEND Family Medicine
DX: E87.6 Hypokalemia (principal); I48.91 Unspecified atrial fibrillation
CPT/HCPCS: 80048

== ENCOUNTER 2021-02-05 07:00 | Outpatient (CLI) | payer MEDICARE, OTHER ==
[2021-02-05 22:46] LABS: CALCIUM 9.3 mg/dL (8.5-10.3); CREATININE 0.9 mg/dL (0.4-1.0)
== END 2021-02-05 23:59 | disposition home or self-care (01) ==
LOC: LAB.R 07:00
DX: E87.6 Hypokalemia (principal)
CPT/HCPCS: 80048

== ENCOUNTER 2021-02-23 14:32 | Outpatient (CLI) | payer MEDICARE, OTHER ==
--- NOTE | 2021-02-23 17:15 | XRAY Report ---
PROCEDURE: Femur 2V RT INDICATIONS: FEMUR FX TECHNIQUE: 2 views of the femur were acquired. COMPARISON: Prior to the femoral series dated 01/15/2021 FINDINGS: Bones: Stable bony alignment status post ORIF of distal femoral shaft fracture. Femoral intramedullar y lex is in expected position as well as multiple associated fixation screws. No significant interval change in appearance or alignment of the healing distal femoral shaft fracture or fracture lucencies are still visible. Background osteoarthritic changes. Soft tissues: No suspicious soft tissue calci fications or masses. IMPRESSION: Stable postsurgical sequelae and bony alignment involving the distal femoral diaphyseal fracture. Reviewed by: CHICHO Rosas on 02/23/2021 5:13 PM PDT Approved by: Nahun Alexander MD on 02/23/2021 5:13 PM PDT Station ID: [id number]
== END 2021-02-23 14:33 | disposition home or self-care (01) ==
LOC: DI 14:32
PROVIDERS: ATTEND Family Medicine
DX: S72.491D Other fracture of lower end of right femur, subsequent encounter for closed fracture with routine healing (principal)

== ENCOUNTER 2021-02-24 20:45 | Outpatient (CLI) | payer MEDICARE, OTHER ==
[2021-02-24 21:50] LABS: BASOPHILS # (AUTO) 0.1 10^3/uL (0.0-0.1); BASOPHILS % (AUTO) 0.5 %; EOSINOPHILS # (AUTO) 0.2 10^3/uL (0.0-0.7); EOSINOPHILS % (AUTO) 2.6 %; HCT - HEMATOCRIT 38.2 % (37.0-47.0); HGB - HEMOGLOBIN 12.4 g/dL (12.0-16.0); LYMPHOCYTES # (AUTO) 3.2 10^3/uL (1.5-3.5); LYMPHOCYTES % (AUTO) 35.5 %; MEAN CORPUSCULAR HEMOGLOBIN 27.7 pg (27.0-31.0); MEAN CORPUSCULAR HGB CONC 32.5 g/dL (32.0-36.0); MEAN CORPUSCULAR VOLUME 85.5 fL (81.0-99.0); MONOCYTES # (AUTO) 0.9 10^3/uL (0.0-1.0); MONOCYTES % (AUTO) 9.4 %; NEUTROPHILS # (AUTO) 4.7 10^3/uL (1.5-6.6); NEUTROPHILS % (AUTO) 51.8 %; PLT - PLATELET COUNT 299 10^3/uL (130-450); RED BLOOD COUNT 4.47 10^6/uL (4.20-5.40); RED CELL DISTRIBUTION WIDTH 15.5 % (12.0-15.0); WHITE BLOOD COUNT 9.1 x10^3/uL (4.8-10.8)
[2021-02-24 21:56] LABS: CALCIUM 9.2 mg/dL (8.5-10.3); CREATININE 0.6 mg/dL (0.4-1.0); POTASSIUM 4.9 mmol/L (3.5-5.0)
== END 2021-02-24 23:59 | disposition home or self-care (01) ==
LOC: LAB.R 20:45
DX: E87.6 Hypokalemia (principal); R63.4 Abnormal weight loss
CPT/HCPCS: 80048; 85025

== ENCOUNTER 2021-03-01 17:10 | Outpatient (CLI) | payer MEDICARE, OTHER ==
[2021-03-01 17:48] LABS: BILIRUBIN,URINE NEGATIVE (NEGATIVE); GLUCOSE, URINE (UA) NEGATIVE (NEGATIVE); KETONES,URINE (UA) NEGATIVE (NEGATIVE); LEUKOCYTE ESTERASE, URINE LARGE (NEGATIVE); NITRITE,URINE NEGATIVE (NEGATIVE); OCCULT BLOOD,URINE LARGE (NEGATIVE); PROTEIN,URINE 100 mg/dL (NEGATIVE); UROBILINOGEN,URINE 0.2 (NORMAL) E.U./dL (NORMAL)
[2021-03-01 18:14] LABS: BACTERIA,URINE Rare /HPF (None Seen); CLARITY,URINE SL. CLOUDY (CLEAR); SQUAMOUS EPITHELIAL CELL,UR RARE Squamous (<= Few); WBC,URINE >25 /HPF (0-5)
== END 2021-03-01 23:59 | disposition home or self-care (01) ==
LOC: LAB.R 17:10
DX: R30.0 Dysuria (principal)
CPT/HCPCS: 81001; 81003; 87086

== ENCOUNTER 2021-03-05 15:47 | Outpatient (CLI) | payer MEDICARE, OTHER ==
[2021-03-05 18:08] LABS: BILIRUBIN,URINE NEGATIVE (NEGATIVE); GLUCOSE, URINE (UA) NEGATIVE (NEGATIVE); KETONES,URINE (UA) NEGATIVE (NEGATIVE); LEUKOCYTE ESTERASE, URINE LARGE (NEGATIVE); NITRITE,URINE NEGATIVE (NEGATIVE); OCCULT BLOOD,URINE LARGE (NEGATIVE); PH,URINE 6.5 PH (5.0-7.5); PROTEIN,URINE 100 mg/dL (NEGATIVE); UROBILINOGEN,URINE 0.2 (NORMAL) E.U./dL (NORMAL)
[2021-03-05 18:26] LABS: CLARITY,URINE CLOUDY (CLEAR)
[2021-03-05 19:13] LABS: BACTERIA,URINE Many /HPF (None Seen); SQUAMOUS EPITHELIAL CELL,UR MANY Squamous (<= Few); WBC,URINE >25 /HPF (0-5)
== END 2021-03-05 23:59 | disposition home or self-care (01) ==
LOC: LAB.R 15:47
DX: R35.0 Frequency of micturition (principal); R39.15 Urgency of urination
CPT/HCPCS: 81001; 81003; 87086

== ENCOUNTER 2021-03-07 11:27 | Outpatient (CLI) | payer MEDICARE, OTHER ==
[2021-03-07 12:00] LABS: BILIRUBIN,URINE NEGATIVE (NEGATIVE); GLUCOSE, URINE (UA) NEGATIVE (NEGATIVE); KETONES,URINE (UA) NEGATIVE (NEGATIVE); LEUKOCYTE ESTERASE, URINE LARGE (NEGATIVE); NITRITE,URINE NEGATIVE (NEGATIVE); OCCULT BLOOD,URINE LARGE (NEGATIVE); PH,URINE 6.5 PH (5.0-7.5); PROTEIN,URINE 100 mg/dL (NEGATIVE); UROBILINOGEN,URINE 0.2 (NORMAL) E.U./dL (NORMAL)
[2021-03-07 12:18] LABS: CLARITY,URINE CLOUDY (CLEAR); WBC CLUMPS,URINE PRESENT; WBC,URINE >25 /HPF (0-5)
[2021-03-07 12:21] LABS: BACTERIA,URINE Many /HPF (None Seen); SQUAMOUS EPITHELIAL CELL,UR FEW Squamous (<= Few)
== END 2021-03-07 11:28 | disposition home or self-care (01) ==
LOC: LAB 11:27
PROVIDERS: ATTEND Family Medicine
DX: N39.0 Urinary tract infection, site not specified (principal); N77.1 Vaginitis, vulvitis and vulvovaginitis in diseases classified elsewhere
CPT/HCPCS: 81001; 87070; 87077; 87086; 87181

== ENCOUNTER 2021-03-07 16:45 | Outpatient (CLI) | payer MEDICARE, OTHER | END 2021-03-07 23:59 | disposition home or self-care (01) | LOC: LAB.R 16:45 | DX: N77.1 Vaginitis, vulvitis and vulvovaginitis in diseases classified elsewhere (principal) | CPT/HCPCS: 87070; 87077; 87181 ==

== ENCOUNTER 2021-03-10 15:50 | Outpatient (CLI) | payer MEDICARE, OTHER | END 2021-03-10 23:59 | disposition home or self-care (01) | LOC: LAB.R 15:50 | DX: E55.9 Vitamin D deficiency, unspecified (principal) | CPT/HCPCS: 82306 ==

== ENCOUNTER 2021-03-12 09:04 | Outpatient (CLI) | payer MEDICARE, OTHER | END 2021-03-12 09:05 | disposition critical access hospital (66) | LOC: EMS 09:04 | DX: R41.82 Altered mental status, unspecified (principal) | CPT/HCPCS: A0425; A0427 ==

== ENCOUNTER 2021-03-12 09:09 | Inpatient (IN) | payer MEDICARE, OTHER ==
--- NOTE | 2021-03-12 09:48 | ED Physician Documentation ---
PD HPI ALTERED MENTAL STATUS - Stated complaint Stated Complaint: AMS - Chief complaint Chief Complaint: Neuro - History obtained from History obtained from: Patient, EMS, Caregiver - History of Present Illness Timing - onset: How many days ago (Has been a bit agitated and less oral intake for the last several days. Had urinalysis showing UTI with culture positive. Started on Cipro in the last 2 days. 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 - Present Medications Home Medications: Ambulatory Orders Medication Instructions Recorded Confirmed Atorvastatin [Lipitor] 20 mg PO QPM 03/12/21 03/12/21 Ciprofloxacin HCl 500 mg PO BID 03/12/21 03/12/21 Mirtazapine [Remeron] 7.5 mg PO QPM 03/12/21 03/12/21 - Allergies Allergies/Adverse Reactions: Allergies Allergy/AdvReac Type Severity Reaction Status Date / Time No Known Drug Allergies Allergy Verified 03/12/21 09:23 - Social History Does the pt smoke?: No Smoking Status: Never smoker Does the pt drink ETOH?: No Does the pt have substance abuse?: No Results - Vitals Vitals: Vital Signs - 24 hr 03/12/21 03/12/21 03/12/21 09:10 09:23 10:15 Temperature 35.4 C L Heart Rate 152 H 155 H Respiratory 20 24 24 Rate Blood Pressure 115/93 H 118/95 H O2 Saturation 100 93 Oxygen O2 Source Nasal cannula Oxygen Flow Rate 2 - EKG (time done) 10:02 Rate: Rate (enter#) (170) Rhythm: Atrial fibrillation Intervals: RBBB Ischemia: Non specific changes. No: ST elevation c/w ischemia - Labs Labs: Laboratory Tests 03/12/21 03/12/21 03/12/21 10:38 10:38 10:43 WBC 32.7 H RBC 5.82 H Hgb 16.2 H Hct 50.6 H MCV 86.9 MCH 27.8 MCHC 32.0 RDW 18.9 H Plt Count 219 MPV 10.0 Neut # (Auto) 28.3 H Lymph # (Auto) 2.3 [place] # (Auto) 1.7 H Eos # (Auto) 0.0 Baso # (Auto) 0.1 Absolute Nucleated RBC 0.00 Nucleated RBC % 0.0 Manual Slide Review Indicated Platelet Estimate NORMAL (130-450,000) Platelet Morphology NORMAL APPEARANCE RBC Morph Micro Appear NORMAL APPEARANCE Sodium Potassium Chloride Carbon Dioxide Anion Gap BUN Creatinine Estimated GFR (MDRD) Glucose Lactic Acid 5.0 H* Calcium Phosphorus Magnesium Total Bilirubin AST ALT Alkaline Phosphatase Troponin I High Sens 63.2 H* B-Natriuretic Peptide Total Protein Albumin Globulin Albumin/Globulin Ratio Lipase 03/12/21 03/12/21 03/12/21 11:31 11:31 11:31 WBC RBC Hgb Hct MCV MCH MCHC RDW Plt Count MPV Neut # (Auto) Lymph # (Auto) [place] # (Auto) Eos # (Auto) Baso # (Auto) Absolute Nucleated RBC Nucleated RBC % Manual Slide Review Platelet Estimate Platelet Morphology RBC Morph Micro Appear Sodium 142 Potassium 6.9 H* Chloride 112 H Carbon Dioxide 10 L* Anion Gap 20.0 H BUN 91 H* Creatinine 2.8 H Estimated GFR (MDRD) 16 L Glucose 195 H Lactic Acid Calcium 10.3 Phosphorus 5.7 H Magnesium Total Bilirubin 0.8 AST 36 ALT < 10 L Alkaline Phosphatase 112 Troponin I High Sens B-Natriuretic Peptide 230 H Total Protein 7.6 Albumin 3.7 Globulin 3.9 Albumin/Globulin Ratio 0.9 L Lipase 40 03/12/21 11:31 WBC RBC Hgb Hct MCV MCH MCHC RDW Plt Count MPV Neut # (Auto) Lymph # (Auto) [place] # (Auto) Eos # (Auto) Baso # (Auto) Absolute Nucleated RBC Nucleated RBC % Manual Slide Review Platelet Estimate Platelet Morphology RBC Morph Micro Appear Sodium Potassium Chloride Carbon Dioxide Anion Gap BUN Creatinine Estimated GFR (MDRD) Glucose Lactic Acid Calcium Phosphorus Magnesium 3.1 H Total Bilirubin AST ALT Alkaline Phosphatase Troponin I High Sens B-Natriuretic Peptide Total Protein Albumin Globulin Albumin/Globulin Ratio Lipase - Rads (name of study) chest xray Radiology: Prelim report reviewed (normal, no infiltrates. ), See rad report KUB CT Radiology: Prelim report reviewed (stent in place left side, no hydroureter. ), See rad report PD MEDICAL DECISION MAKING - ED course Complexity details: reviewed results (CXR does not look like CHF. HR is slowed to 100-110 with Diltiazem x 2 doses. Pt more alert and better color. Labs showing GALLO, low BNP, so will give IV fluids now as seems less CHF. ), re- evaluated patient (Heart rate is improved with doses of diltiazem. Is now approximately 100. I cannot tell if in failure initially so held fluids to begin with. Will now give more fluids for apparent likely sepsis and GALLO. She is appearing more alert.), considered differential (recent UTI, with ill now, so presume sepsis, but I am concerned about the dyspnea, congested lung sounds and rapid atrial fib, for potential CHF/edema or pneumonia. Did not give much fluid initially until better assessment. ), d/w patient, d/w family (talked with her son at home, who confirms pt POLST of full interventions. ) - Critical Care Time(min): 40 Time Includes: Direct patient care, Reassess patient, Coordinate care, Medical consult, Family consult for tx dec Data interpretation: Labs, Pulse ox, CXR Procedures excluded from critical care time: EKG Departure - Departure Disposition: 66 [facility] DC/Xfer Clinical Impression: Atrial fibrillation with rapid ventricular response, GALLO (acute kidney injury), Dehydration UTI (urinary tract infection) Qualifiers: Urinary tract infection type: site unspecified Hematuria presence: without hematuria Qualified Code(s): N39.0 - Urinary tract infection, site not specified Sepsis Qualifiers: Sepsis type: sepsis due to unspecified organism Sepsis acute organ dysfunction status: unspecified Qualified Code(s): A41.9 - Sepsis, unspecified organism Condition: Stable Discharge Date/Time: 03/12/21 13:30
[2021-03-12] MEDS ORDERED: ALBUTEROL NEB 2.5 MG/3 ML INH STA (09:51)
[2021-03-12] MEDS ORDERED: diltiaZEM INJ 5 MG/ML VIAL IVP STA ×3 (09:53→12:38)
[2021-03-12] MEDS ORDERED: cefTRIAXone 1 GM VIAL IVP STA (09:55)
--- NOTE | 2021-03-12 10:15 | XRAY Report ---
PROCEDURE: Chest 1 View X-Ray INDICATIONS: chest pain TECHNIQUE: One view of the chest was acquired. COMPARISON: 12/02/2020 FINDINGS: Surgical changes and devices: None. Lungs and pleura: No pleural effusions or pneumothorax. Lungs are clear. Mediastinum: Mediastinal contours appear normal. Heart size is normal. Calcification is seen of th e aortic arch. Bones and chest wall: No suspicious bony lesions. Age-appropriate degenerative changes are seen. Re mote, healed right posterolateral rib fractures are seen. Deformity is seen of the right humeral head , which is unchanged compared to the prior and attributed to a remote fracture. Overlying soft tissue s appear unremarkable. IMPRESSION: Portable chest within normal limits for age. Incidental note is made of: Remote, healed right posterolateral rib fractures Apparent remote fracture of the right humeral head, stable Reviewed by: Abner Zhang MD on 03/12/2021 9:14 AM JONATAN Approved by: Abner Zhang MD on 03/12/2021 9:14 AM JONATAN Station ID: [id number]
[2021-03-12] MEDS ORDERED: SODIUM CHLORIDE 0.9% 250 ML IV STA (10:19)
[2021-03-12 10:47] LABS: BASOPHILS # (AUTO) 0.1 10^3/uL (0.0-0.1); BASOPHILS % (AUTO) 0.2 %; HCT - HEMATOCRIT 50.6 % (37.0-47.0); HGB - HEMOGLOBIN 16.2 g/dL (12.0-16.0); LYMPHOCYTES # (AUTO) 2.3 10^3/uL (1.5-3.5); LYMPHOCYTES % (AUTO) 7.2 %; MEAN CORPUSCULAR HEMOGLOBIN 27.8 pg (27.0-31.0); MEAN CORPUSCULAR VOLUME 86.9 fL (81.0-99.0); MONOCYTES # (AUTO) 1.7 10^3/uL (0.0-1.0); MONOCYTES % (AUTO) 5.1 %; NEUTROPHILS # (AUTO) 28.3 10^3/uL (1.5-6.6); NEUTROPHILS % (AUTO) 86.6 %; PLT - PLATELET COUNT 219 10^3/uL (130-450); RED BLOOD COUNT 5.82 10^6/uL (4.20-5.40); RED CELL DISTRIBUTION WIDTH 18.9 % (12.0-15.0); WHITE BLOOD COUNT 32.7 x10^3/uL (4.8-10.8)
[2021-03-12 11:00] LABS: SLIDE REVIEW? Indicated
[2021-03-12 11:11] LABS: PLATELET ESTIMATE, MANUAL NORMAL (130-450,000) (NORMAL); PLATELET MORPHOLOGY NORMAL APPEARANCE (NORMAL); RBC MORPHOLOGY (MULTIPLE) NORMAL APPEARANCE (NORMAL)
[2021-03-12 11:57] LABS: ALBUMIN 3.7 g/dL (3.2-5.5); ALBUMIN/GLOBULIN RATIO 0.9 (1.0-2.2); ALKALINE PHOSPHATASE 112 IU/L (42-121); AST ASPARTATE AMINOTRANSFERASE 36 IU/L (10-42); BILIRUBIN,TOTAL 0.8 mg/dL (0.2-1.0); CALCIUM 10.3 mg/dL (8.5-10.3); CHLORIDE 112 mmol/L (101-111); CREATININE 2.8 mg/dL (0.4-1.0); GFR - MDRD 16 (>89); GLUCOSE 195 mg/dL (70-100); LIPASE 40 U/L (22-51); SODIUM 142 mmol/L (135-145); TOTAL PROTEIN 7.6 g/dL (6.7-8.2)
[2021-03-12 11:58] LABS: ALT ALANINE AMINOTRANSFERASE < 10 IU/L (10-60)
[2021-03-12 12:00] LABS: BUN - BLOOD UREA NITROGEN 91 mg/dL (6-20); CARBON DIOXIDE - CO2 10 mmol/L (21-32); POTASSIUM 6.9 mmol/L (3.5-5.0)
[2021-03-12] MEDS ORDERED: SODIUM CHLORIDE 0.9% 1,000 ML IV STA (12:12)
[2021-03-12] MEDS ORDERED: SODIUM BICARBONATE ABBOJECT 50 MEQ/50 ML SYRINGE IVP ONE (12:13)
--- NOTE | 2021-03-12 12:21 | CT Report ---
PROCEDURE: Abdomen/Pelvis WO INDICATIONS: UTI, ? sepsis; eval for obstruction TECHNIQUE: Noncontrast 5 mm thick sections acquired from the diaphragms to the symphysis. 5 mm coronal and sagi ttal reformats were then performed. For radiation dose reduction, the following was used: automated exposure control, adjustment of mA and/or kV according to patient size. COMPARISON: 12/02/2020. Correlation is also made with the accompanying chest radiograph, 03/12/2021. FINDINGS: Image quality: Motion artifact is noted. There is streak artifact seen in the upper abdomen. ABDOMEN: Lung bases: Minimal patchy right lower lobe infiltrate can be seen. Heart size is normal. Solid organs: Liver and spleen are normal in size. Gallbladder demonstrates gallstones within its l umen Pancreas is normal in contours. No adrenal nodules. There is a left-sided double-J stent seen.No hydronephrosis is seen on either side. There is a water density 4.9 cm cyst seen along the anterior superior aspect of the left kidney. A staghorn type calc ulus is seen involving the inferior left kidney that measures up to 3 cm. Peritoneum and bowel: Unenhanced bowel loops demonstrate normal wall thickness and caliber. No free fluid or air. There is a prominent amount of stool seen at the rectal vault. The rectal wall measur es 8.3 cm transversely. Nodes and vessels: No retroperitoneal or mesenteric adenopathy by size criteria. Aorta and inferior vena cava are normal in caliber. Miscellaneous: No ventral hernias. PELVIS: Genitourinary: Bladder wall thickness is normal. This patient is status post hysterectomy. No adnex al masses can be seen. Miscellaneous: No inguinal hernias or adenopathy. Bones: Pectus excavatum deformity is partially seen. No suspicious bony lesions. No vertebral body compression fractures. Degenerative changes are seen throughout, which are worst involving the lumba r spine and the hips. Postoperative change of the right proximal femur can be seen. IMPRESSION: There is a left-sided double-J stent seen in place. No hydronephrosis is seen on either side. There is a 3 cm staghorn type calculus involving the inferior left kidney. Minimal patchy right lower lobe infiltrate can be seen. Infection is suspected, although differential diagnosis would also include inflammatory change or atelectasis. Prominent stool can be seen within the rectal vault. Incidental note is made of: Pectus excavatum deformity Gallstones Simple appearing left renal cyst Hysterectomy Postoperative change of the right proximal femur Reviewed by: Abner Zhang MD on 03/12/2021 11:20 AM JONATAN Approved by: Abner Zhang MD on 03/12/2021 11:20 AM JONATAN Station ID: [id number]
[2021-03-12] MEDS ORDERED: ACETAMINOPHEN 325 MG TABLET PO PRN (12:26)
[2021-03-12] MEDS ORDERED: ALBUTEROL NEB 2.5 MG/3 ML INH PRN (12:26)
[2021-03-12] MEDS ORDERED: DEXTROSE 5% 1,000 ML IV STA (12:26)
[2021-03-12] MEDS ORDERED: ONDANSETRON 4 MG/2 ML VIAL IVP PRN (12:26)
[2021-03-12] MEDS ORDERED: ONDANSETRON ODT 4 MG TABLET TL PRN (12:26)
[2021-03-12] MEDS ORDERED: INSULIN REGULAR HUMAN 100 UNIT/1 ML 10 ML MDV IVP STA (12:26)
[2021-03-12] MEDS ORDERED: LACTATED RINGERS 1,000 ML IV ONE ×3 (12:38→19:09)
--- NOTE | 2021-03-12 12:40 | HISTORY & PHYSICAL EXAMINATION ---
Chief Complaint - Chief Complaint Chief Complaint: Change in mental status History of Present Illness - Admitted From Admitted From:: [facility] - History Obtained From Records Reviewed: Yes History obtained from: ER Physician, Son, EMR Exam Limitations: Patient is encephalopathic and unable to provide a history. - History of Present Illness HPI Comment/Other: This is a 86-year-old female with a past medical history significant for stroke with residual aphasia, paroxysmal atrial fibrillation who presents today due to altered mental status from [facility] in [place]. History from the patient is limited due to her encephalopathy. The patient was reportedly diagnosed with a urinary tract infection about 5 days ago and treated with ciprofloxacin on an outpatient basis. They noticed overnight she had a change in her mental status with decreased oral intake and so she was brought for evaluation this morning. The patient was seen in our emergency department back in November of this year for sepsis secondary to urinary tract infection and at that time she had obstructed left stone. She was transferred to [facility] for intervention and ended up having a ureteral stent placed. Her most recent urine culture grew Klebsiella pneumonia which was sensitive to ciprofloxacin that she was prescribed. In the emergency department, she was afebrile but noted to be tachycardic with heart rates in the 150s and in atrial fibrillation. She was not hypoxic or tachypneic. Labs were significant for a white count of 32.7 with a left shift. Her hemoglobin was 16.2. Her creatinine is elevated at 2.8, BUN 91, potassium at 6.9. Her bicarbonate was 10. Lactic acid elevated at 5. Her troponin was 63.2. She was given IV fluids and IV ceftriaxone based off of prior cultures which grew Klebsiella. CT of the abdomen pelvis contrast showed no hydronephrosis but did reveal a left staghorn calculi. Given the above findings, medicine was consulted for admission. I did attempt to contact her son twice to discuss goals of care but I am unable to reach him. The patient is unable to express her wishes. The emergency department physician told me that the patient's family expressed that she is a full code and so she will be made a full code for the time being. 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 Living arrangement: residential Social History Notes: She resides at [facility]. I am unable to obtain further social history as she is encephalopathic. - POLST Patient has POLST: No Meds/Allgy - Home Medications Home Medications: Ambulatory Orders Medication Instructions Recorded Confirmed Atorvastatin [Lipitor] 20 mg PO QPM 03/12/21 03/12/21 Ciprofloxacin HCl 500 mg PO BID 03/12/21 03/12/21 Mirtazapine [Remeron] 7.5 mg PO QPM 03/12/21 03/12/21 - Allergies Allergies/Adverse Reactions: Allergies Allergy/AdvReac Type Severity Reaction Status Date / Time No Known Drug Allergies Allergy Verified 03/12/21 09:23 Review of Systems - All Other Systems All Other Systems: reports: Other (Unable to obtain due to encephalopathy.) Prior Level of Functionality: She resides at [facility] and is dependent for ADLs. Exam - Vital Signs Reviewed Vital Signs: Yes Vital Signs: Vital Signs x48h Temp Pulse Resp BP Pulse Ox 03/12/21 10:15 155 H 24 03/12/21 09:23 152 H 24 118/95 H 93 03/12/21 09:10 35.4 C L 20 115/93 H 100 - Physical Exam General Appearance: positive: Other (She appears lethargic and frail.) Eyes Bilateral: positive: Conjunctivae nml ENT: positive: Dry mucous membranes. negative: No signs of dehydration Respiratory: positive: No respiratory distress. negative: Wheezes, Rales Cardiovascular: positive: No murmur, Irregularly irregular, Tachycardia. negative: Systolic murmur Abdomen: positive: Non-tender, No distention Skin: positive: Warm, Dry Extremities: positive: No pedal edema, Other (She has contractures of the right hand and right foot.) Neurologic/Psychiatric: positive: Other (She is able to intermittently follow commands. She able to move her left upper and lower extremities. 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 She presents with leukocytosis, encephalopathy, lactic acidosis. She is currently normotensive. We will place her empirically on ceftriaxone IV given her prior culture grew Klebsiella that was pansensitive. We have repeated urine culture. CT did not reveal any evidence of obstruction although there is a left staghorn calculi. We will give another liter of lactated Ringer's and continue her on maintenance IV fluids. Recheck lactic acid. (2) Encephalopathy Conclusion/Plan: This is secondary to the severe sepsis and acute renal failure as well as dehydration. She has residual deficits of the right upper and lower extremities from her prior stroke. She was able to move her left arm and leg for me and I suspect she is at her baseline from a motor deficit perspective. Low suspicion for stroke at this time. I suspect she will improve with antibiotics and IV hydration. If no improvement over next 24 hours then we can consider obtaining a CT of the head. (3) Acute renal failure Conclusion/Plan: This is likely prerenal in injury secondary to dehydration and decreased oral intake. CT did not reveal any obvious evidence of obstruction. We will give another liter of lactated Ringer's and continue her on maintenance IV fluids. Avoid nephrotoxins. Monitor renal function and urine output. (4) UTI (urinary tract infection) Conclusion/Plan: Appears to be the cause of her severe sepsis. Her prior urine culture grew Klebsiella that was pansensitive. She failed outpatient treatment with cipro floxacin and I suspect her biggest issue now is volume depletion. We will place her on ceftriaxone IV based off of prior cultures. We will recheck a urinalysis and urine culture. If she begins to spike fevers then we will broaden her antibiotics. Qualifiers: Urinary tract infection type: site unspecified Hematuria presence: without hematuria Qualified Code(s): N39.0 - Urinary tract infection, site not specified (5) Atrial fibrillation with rapid ventricular response Conclusion/Plan: She has a history of paroxysmal atrial fibrillation and presents today with RVR. Suspect this is likely driven by her sepsis and volume depletion. She was given diltiazem in the emergency department with improvement in her heart rate to the 100s. We will keep her on Lopressor 5 mg IV every 6 hours for the time being until the med rec is completed. Monitor on telemetry. (6) Hyperkalemia Conclusion/Plan: Her potassium is 6.9 and this is secondary to the acute renal failure. She was given insulin and dextrose in the emergency department as well as bicarbonate. We will continue to hydrate her and recheck a BMP in 3 hours to ensure i mprovement in her potassium. (7) Metabolic acidosis Conclusion/Plan: Her bicarbonate is decreased at 10 and lactic acid elevated at 5. This is secondary to the sepsis as well as volume depletion and acute kidney injury. This should improve with IV hydration we will keep her on lactated Ringer's. (8) Staghorn calculus Conclusion/Plan: This was evident on the CT of the abdomen and pelvis. She has a history of neph rolithiasis and required a stent back in November for an obstructive stone causing a urinary tract infection. At this time there is currently no evidence of hydronephrosis. I did speak with urology at [facility] who recommended just treating the underlying infection and that there was no role for intervention at this time. (9) History of stroke with residual deficit Conclusion/Plan: She has a history of stroke and resides at [facility]. We will resume her home medications when appropriate. - Lab Results Lab results reviewed: Yes Fish Bones: 03/12/21 10:38 03/12/21 15:08 - Diagnostic Imaging Results Diagnostic Imaging Results: positive: Final report reviewed - EKG Results EKG Interpreted Independently: Yes EKG Comparison: Changed from prior EKG EKG Findings: EKG shows atrial fibrillation with rapid ventricular response and right bundle branch block. Compared to prior EKG, the rate is increased. Core Measures - Anticipated LOS I expect patient to be DC'd or transferred within 96 hours.: Yes - Issues Hospital Issues and Management Plan: 86-year-old female with history of stroke and a tribulation presents with encephalopathy found of acute renal failure and severe sepsis secondary to urinary tract infection. We will admit for IV hydration and antibiotics. - DVT/VTE - Prophylaxis VTE/DVT Device ordered at admit?: Yes VTE/DVT Prophylaxis med ordered at admit?: Yes
--- NOTE | 2021-03-12 13:21 | PHARMACY PROGRESS NOTE ---
- Best Possible Medication History Admit Date and Time: 03/12/21 1226 Processed by: Pharmacy Medication History completed: Yes Secondary Source(s): Facility MAR as ONLY source As the person ultimately responsible for medication therapy, providers are able to order a medication from an existing home medication list in [facility] via the "Reconcile Routine" prior to Confirmation of that medication by direct support professional. Such practice is discouraged except when the physician, in their clinical judgment, deems that a medical need exists for a medication without regard to previous use.
[2021-03-12 13:22] LABS: INR 1.6 (0.8-1.2); PT - PROTHROMBIN TIME 17.7 secs (9.9-12.6)
[2021-03-12] MEDS ORDERED: INSULIN REGULAR HUMAN 300 UNIT/3 ML VIAL IVP ONE (13:25)
[2021-03-12] MEDS ORDERED: DEXTROSE 50% ABBOJECT 25 GM/50 ML SYRINGE IVP ONE (13:25)
[2021-03-12] MEDS ORDERED: CALCIUM GLUCONATE 1,000 MG in SODIUM CHLORIDE 0.9% 50 ML IV STA (13:33)
[2021-03-12] MEDS: LACTATED RINGERS 1,000 ML IV SCH ×2 (15:09→22:18)
[2021-03-12 15:22] LABS: B. PARAPERTUSSIS- RESP PCR PAN NOT DETECTED; B. PERTUSSIS- RESP PCR PANEL NOT DETECTED; C. PNEUMONIAE- RESP PCR PANEL NOT DETECTED; CORONAVIRUS 229E-RESP PCR NOT DETECTED; CORONAVIRUS HKU1-RESP PCR NOT DETECTED; CORONAVIRUS NL63-RESP PCR NOT DETECTED; CORONAVIRUS OC43-RESP PCR NOT DETECTED; HUMAN METAPNEUMOVIRUS NOT DETECTED; INFLUENZA A- RESP PCR PANEL NOT DETECTED; INFLUENZA B - RESP PCR PANEL NOT DETECTED; M. PNEUMONIAE- RESP PCR PANEL NOT DETECTED; PARAINFLUENZA VIRUS 1 NOT DETECTED; PARAINFLUENZA VIRUS 2 NOT DETECTED; PARAINFLUENZA VIRUS 3 NOT DETECTED; PARAINFLUENZA VIRUS 4 NOT DETECTED; RHINOVIRUS/ENTEROVIRUS NOT DETECTED; RSV- RESP PCR PANEL NOT DETECTED; SARS-CoV-2 -RESP PCR PANEL NOT DETECTED
[2021-03-12 15:24] LABS: CALCIUM 9.2 mg/dL (8.5-10.3); CREATININE 2.6 mg/dL (0.4-1.0); POTASSIUM 5.7 mmol/L (3.5-5.0)
[2021-03-12] MEDS ORDERED: PIPERACILLIN/TAZOBACTAM 3.375 GM in SODIUM CHLORIDE 0.9% MINIBAG 100 ML IV ONE (16:00)
[2021-03-12] MEDS: SODIUM CHLORIDE FLUSH 0.9% 10 ML SYRINGE IVP SCH (17:02)
[2021-03-12] MEDS: METOPROLOL 5 MG/5 ML VIAL IVP SCH (18:41)
[2021-03-12] MEDS: HEPARIN 5,000 UNIT/ML VIAL SUBQ SCH (21:12)
[2021-03-12 21:21] LABS: CALCIUM 9.1 mg/dL (8.5-10.3); CREATININE 2.3 mg/dL (0.4-1.0); POTASSIUM 5.3 mmol/L (3.5-5.0)
[2021-03-12 23:01] LABS: GLUCOSE, URINE (UA) NEGATIVE (NEGATIVE); KETONES,URINE (UA) NEGATIVE (NEGATIVE); LEUKOCYTE ESTERASE, URINE MODERATE (NEGATIVE); NITRITE,URINE POSITIVE (NEGATIVE); OCCULT BLOOD,URINE LARGE (NEGATIVE); PROTEIN,URINE >=300 mg/dL (NEGATIVE); UROBILINOGEN,URINE 0.2 (NORMAL) E.U./dL (NORMAL)
[2021-03-12 23:05] LABS: BILIRUBIN,URINE NEGATIVE (NEGATIVE); CLARITY,URINE CLOUDY (CLEAR); ICTOTEST,URINE NEGATIVE
[2021-03-12 23:09] LABS: BACTERIA,URINE Many /HPF (None Seen); SQUAMOUS EPITHELIAL CELL,UR NONE SEEN (<= Few)
[2021-03-12] MEDS: PIPERACILLIN/TAZOBACTAM 3.375 GM in SODIUM CHLORIDE 0.9% MINIBAG 100 ML IV SCH (23:52)
[2021-03-13] MEDS: SODIUM CHLORIDE FLUSH 0.9% 10 ML SYRINGE IVP SCH ×3 (00:02→18:23)
[2021-03-13] MEDS: LACTATED RINGERS 1,000 ML IV SCH (05:01)
[2021-03-13 05:22] LABS: BASOPHILS % (AUTO) 0.3 %; EOSINOPHILS % (AUTO) 0.1 %; HGB - HEMOGLOBIN 12.2 g/dL (12.0-16.0); LYMPHOCYTES % (AUTO) 9.8 %; MEAN CORPUSCULAR HEMOGLOBIN 27.9 pg (27.0-31.0); MEAN CORPUSCULAR VOLUME 84.7 fL (81.0-99.0); MEAN PLATELET VOLUME 9.7 fL (7.9-10.8); MONOCYTES % (AUTO) 4.1 %; NEUTROPHILS % (AUTO) 84.9 %; PLT - PLATELET COUNT 136 10^3/uL (130-450); RED BLOOD COUNT 4.37 10^6/uL (4.20-5.40); RED CELL DISTRIBUTION WIDTH 17.5 % (12.0-15.0); WHITE BLOOD COUNT 29.9 x10^3/uL (4.8-10.8)
[2021-03-13 05:24] LABS: ABNORMAL LYMPHS % (MANUAL) 0 %; BAND NEUTROPHILS % (MANUAL) 0 %
[2021-03-13 05:36] LABS: CALCIUM 8.8 mg/dL (8.5-10.3); CREATININE 1.9 mg/dL (0.4-1.0); MAGNESIUM 1.9 mg/dL (1.7-2.8); PHOSPHORUS 2.9 mg/dL (2.5-4.6); POTASSIUM 4.8 mmol/L (3.5-5.0)
[2021-03-13 05:48] LABS: LYMPHOCYTES % (MANUAL) 10 %; MONOCYTES # (MANUAL) 1.8 10^3/uL (0.0-1.0); NEUTROPHILS # (MANUAL) 25.1 10^3/uL (1.5-6.6)
[2021-03-13 05:49] LABS: DIFFERENTIAL COMMENT MANUAL DIFFERENTIAL; PLATELET ESTIMATE, MANUAL NORMAL (130-450,000) (NORMAL); PLATELET MORPHOLOGY NORMAL APPEARANCE (NORMAL); RBC MORPHOLOGY (MULTIPLE) NORMAL APPEARANCE (NORMAL); WBC MORPHOLOGY (MULTIPLE) NORMAL APPEARANCE (NORMAL)
[2021-03-13] MEDS: METOPROLOL 5 MG/5 ML VIAL IVP SCH ×4 (06:14→18:22)
[2021-03-13] MEDS ORDERED: DEXTROSE 50% ABBOJECT 25 GM/50 ML SYRINGE IVP ONE ×2 (08:05→12:33)
[2021-03-13] MEDS ORDERED: DEXTROSE 50% ABBOJECT 25 GM/50 ML SYRINGE ONE (08:11)
[2021-03-13] MEDS ORDERED: DEXTROSE 5% 1,000 ML IV SCH (09:00)
[2021-03-13] MEDS ORDERED: cefTRIAXone 1 GM in SODIUM CHLORIDE 0.9% MINIBAG 100 ML IV SCH (09:00)
[2021-03-13] MEDS: HEPARIN 5,000 UNIT/ML VIAL SUBQ SCH ×2 (10:31→20:45)
[2021-03-13] MEDS: DEXTROSE 5%-LACTATED RINGERS 1,000 ML IV SCH ×2 (10:36→22:40)
[2021-03-13] MEDS: ZINC OXIDE 20% OINT 30 GM TUBE TOP PRN ×2 (11:53→18:31)
[2021-03-13] MEDS: PIPERACILLIN/TAZOBACTAM 3.375 GM in SODIUM CHLORIDE 0.9% MINIBAG 100 ML IV SCH ×2 (11:54→23:46)
[2021-03-13] MEDS: polyethylene glycoL 3350 17 GM PACKET PO SCH (12:01)
--- NOTE | 2021-03-13 15:31 | PROVIDER PROGRESS NOTE ---
Assessment/Plan - Problem List (1) Severe sepsis Assessment/Plan: The patient had signs of severe sepsis with leukocytosis, altered mental status and elevated lactic acid level. Her white blood count has improved from 32 to 29 lactic acid has normalized and she is more awake and alert today but is confused (possibly her baseline dementia). We will continue her on empiric ceftriaxone IV for treatimg a UTI. Await blood and urine culture results which are negative to date. Since her Blood pressure is still "soft" with systolics lower than 100, will remain in the ICU. (2) Encephalopathy Assessment/Plan: This was secondary to the severe sepsis and acute renal failure as well as dehydration. She has residual deficits of the right upper and lower extremities from her prior stroke. Her mental status appears to be improving with antibiotics and IV hydration. (3) GALLO (acute kidney injury) Assessment/Plan: This was prerenal azotemia injury secondary to dehydration and decreased oral intake. CT did not reveal any obvious evidence of obstruction. We will continue with D5 lactated Ringer's Avoid nephrotoxins. Monitor BMP daily and watch urine output. (4) Hypoglycemia Assessment/Plan: Her morning fasting glucose was 69 (she is not a diabetic and not on insulin). This is likely from having sepsis. Continue her with IV hydration containing D5, since she is not eating a diet adequately yet. Monitor glucose closely, hoping to avoid any future hypoglycemia (5) UTI (urinary tract infection) Qualifiers: Urinary tract infection type: site unspecified Hematuria presence: without hematuria Qualified Code(s): N39.0 - Urinary tract infection, site not specified Assessment/Plan: his was likely the cause of her severe sepsis. Her prior urine culture grew Klebsiella that was pansensitive. She failed outpatient treatment with ciprofloxacin. Cont on ceftriaxone IV based off of prior cultures. Await the new urine culture result. If she begins to spike fevers then we will broaden her antibiotics. (6) Atrial fibrillation with rapid ventricular response Assessment/Plan: She has a history of paroxysmal atrial fibrillation and presents yesterday with RVR. Suspect this was likely driven by her sepsis and volume depletion. She was given diltiazem in the emergency department with improvement in her heart rate to the 100s. We will keep her on Lopressor 5 mg IV every 6 hours for the time being until the med rec is completed. Cont on telemetry. This patient's CHADS score equals 2 (for age greater than 75 and prior strike), but she was not on any oral anticoagulants according to her medication list that has been reconciled, and also not on aspirin, for unknown reasons. I have reviewed her old records in [facility] and see that she had a recent fall, therefore she is not a candidate to use anticoagulation but I cannot find any reason not to use aspirin. Will start 1 baby aspirin daily. (7) Metabolic acidosis Assessment/Plan: Improvimg Her bicarbonate was na slow as 10 and lactic acid elevated at 5 on admission, secondary to the sepsis as well as volume depletion and acute kidney injury. Continue with IV hydration Follow BMP daily (8) Staghorn calculus Assessment/Plan: This was evident on the CT of the abdomen and pelvis. She has a history of nephrolithiasis and required a stent back in November for an obstructive stone causing a urinary tract infection. At this time there is currently no evidence of hydronephrosis. The admitting Hospitalist spoke with urology at [facility] who recommended just treating the underlying infection and that there was no role for intervention at this time. (9) History of stroke with residual deficit Assessment/Plan: She has a history of stroke and resides at [facility]. We will resume her home statin She has not been on anticoagulation or aspirin despite having a history of CVA and having a history of A. fib. We will start daily baby aspirin since there nis no Hx of bleeds (10) Hyperkalemia Assessment/Plan: Resolved. Her potassium was 6.9, secondary to the acute renal failure. She was given insulin and dextrose in the emergency department as well as bicarbonate. Follow BMP) daily - Current Meds Current Meds: Current Medications Generic Name Dose Route Start Last Admin Trade Name Freq PRN Reason Stop Dose Admin Heparin Sodium (Porcine) 5,000 unit 03/12/21 21:00 03/13/21 10:31 Heparin 5,000 Unit/Ml Vial SUBQ 5,000 unit BID AVELINO Administration Piperacillin Sod/Tazobactam 100 mls @ 25 mls/hr 03/13/21 00:00 03/13/21 11:54 Sod 3.375 gm/ Sodium Chloride IV 25 mls/hr Q12H AVELINO Administration Dextrose/Lactated Ringer's 1,000 mls @ 83.333 mls/hr 03/13/21 11:00 03/13/21 10:36 D5lr IV 83.333 mls/hr .Q12H AVELINO Administration Metoprolol Tartrate 5 mg 03/13/21 10:23 03/13/21 11:53 Metoprolol 5 Mg/5 Ml Vial IVP Not Given Q6HR AVELINO Multi-Ingredient Ointment 1 applic 03/13/21 10:42 03/13/21 11:53 Zinc Oxide 20% Oint 30 Gm Tube TOP 1 applic PRN PRN Administration Skin Care Polyethylene Glycol 17 gm 03/13/21 12:00 03/13/21 12:01 Polyethylene Glycol 3350 17 Gm Packet PO 17 gm DAILY AVELINO Administration Sodium Chloride 10 ml 03/12/21 17:00 03/13/21 10:39 Sodium Chloride Flush 0.9% 10 Ml Syringe IVP 10 ml 0100,0900,1700 AVELINO Administration - Lab Result Fish Bone Diagrams: 03/13/21 05:10 03/13/21 05:10 - Additional Planning My Orders: My Active Orders 03/13/21 10:23 Metoprolol Inj [Lopressor Inj] 5 mg IVP Q6HR 03/13/21 11:00 Dextrose 5%-Lactated Ringers [D5lr] 1,000 ml IV 83.333 mls/hr Subjective - Subjective Patient Reports: Feeling Better (She is more awake and alert and denies any pain or other complaints) Objective Vital Signs: Vital Signs - 24 hr 03/12/21 03/12/21 03/12/21 16:00 16:53 16:56 Temperature 36 C L 36.5 C Heart Rate 120 H Heart Rate [ 121 H Monitoring electrodes] Respiratory 15 20 Rate Blood Pressure Blood Pressure 101/55 L [Left Brachial artery] O2 Saturation 100 96 03/12/21 03/12/21 03/12/21 17:00 18:00 18:41 Temperature 36.5 C Heart Rate Heart Rate [ 117 H 104 H Monitoring electrodes] Respiratory 13 15 Rate Blood Pressure 98/57 L Blood Pressure 96/61 97/61 [Left Brachial artery] O2 Saturation 100 100 03/12/21 03/12/21 03/12/21 19:00 20:00 21:00 Temperature Heart Rate Heart Rate [ 106 H 100 108 H Monitoring electrodes] Respiratory 14 24 15 Rate Blood Pressure Blood Pressure 106/51 L 112/56 L 116/59 L [Left Brachial artery] O2 Saturation 100 99 99 03/12/21 03/12/21 03/13/21 22:00 23:00 00:00 Temperature 36.6 C 35.7 C L Heart Rate Heart Rate [ 106 H 113 H 94 Monitoring electrodes] Respiratory 15 13 15 Rate Blood Pressure 114/62 Blood Pressure 106/55 L 104/41 L 114/62 [Left Brachial artery] O2 Saturation 100 100 99 03/13/21 03/13/21 03/13/21 00:49 01:00 02:00 Temperature 36.0 C L Heart Rate Heart Rate [ 110 H 95 95 Monitoring electrodes] Respiratory 17 14 16 Rate Blood Pressure Blood Pressure 92/56 L 106/58 L [Left Brachial artery] O2 Saturation 98 100 100 03/13/21 03/13/21 03/13/21 03:00 04:00 05:00 Temperature Heart Rate Heart Rate [ 101 H 109 H 102 H Monitoring electrodes] Respiratory 16 23 16 Rate Blood Pressure Blood Pressure 93/54 L 118/56 L 97/58 L [Left Brachial artery] O2 Saturation 100 100 100 03/13/21 03/13/21 03/13/21 06:05 06:14 07:00 Temperature Heart Rate Heart Rate [ 110 H 110 H Monitoring electrodes] Respiratory 17 18 Rate Blood Pressure 97/49 L Blood Pressure 97/49 L [Left Brachial artery] O2 Saturation 92 97 03/13/21 03/13/21 03/13/21 08:00 09:00 10:00 Temperature 36.8 C Heart Rate Heart Rate [ 110 H 118 H 119 H Monitoring electrodes] Respiratory 18 17 17 Rate Blood Pressure Blood Pressure 106/75 94/68 [Left Brachial artery] O2 Saturation 97 94 96 03/13/21 03/13/21 03/13/21 11:00 11:53 12:00 Temperature 36.8 C 36.7 C Heart Rate Heart Rate [ 107 H 115 H Monitoring electrodes] Respiratory 15 17 Rate Blood Pressure 88/62 L Blood Pressure 88/62 L 114/61 [Left Brachial artery] O2 Saturation 97 97 03/13/21 03/13/21 03/13/21 13:00 14:00 15:00 Temperature 36.7 C Heart Rate Heart Rate [ 111 H 117 H 120 H Monitoring electrodes] Respiratory 17 18 18 Rate Blood Pressure Blood Pressure 96/64 127/95 H 101/54 L [Left Brachial artery] O2 Saturation 93 98 96 Oxygen O2 Source Nasal cannula Oxygen Flow Rate 2 I&O (Last 24 Hrs): Intake and Output Totals x24h 03/11/21 03/12/21 03/13/21 23:59 23:59 23:59 Intake Total 6410 1972 Output Total 225 522 Balance 6185 1450 General: Alert HEENT: Mucous membr. moist/pink, Other Neck: Supple, No JVD (Dentition) Neuro: Alert, Other (Speech is normal but answers appeared to be confused, R hand weakness (? contracture)) Cardiovascular: No murmurs, Other (Distant heart sounds) Respiratory: No respiratory distress, Breath sounds nml Abdomen: Normal bowel sounds, Soft Skin: No rashes (Tenting of the skin of her legs is noted) - Results Results: Laboratory Results WBC 29.9 x10^3/uL (4.8-10.8) H 03/13/21 05:10 RBC 4.37 10^6/uL (4.20-5.40) 03/13/21 05:10 Hgb 12.2 g/dL (12.0-16.0) 03/13/21 05:10 Hct 37.0 % (37.0-47.0) 03/13/21 05:10 MCV 84.7 fL (81.0-99.0) 03/13/21 05:10 MCH 27.9 pg (27.0-31.0) 03/13/21 05:10 MCHC 33.0 g/dL (32.0-36.0) 03/13/21 05:10 RDW 17.5 % (12.0-15.0) H 03/13/21 05:10 Plt Count 136 10^3/uL (130-450) 03/13/21 05:10 MPV 9.7 fL (7.9-10.8) 03/13/21 05:10 Neut # (Auto) Not Reportable 03/13/21 05:10 Lymph # (Auto) Not Reportable 03/13/21 05:10 [place] # (Auto) Not Reportable 03/13/21 05:10 Eos # (Auto) Not Reportable 03/13/21 05:10 Baso # (Auto) Not Reportable 03/13/21 05:10 Absolute Nucleated RBC Not Reportable 03/13/21 05:10 Total Counted 100 03/13/21 05:10 Band Neuts % (Manual) 0 % (0-10) 03/13/21 05:10 Abnorm Lymph % (Manual) 0 % 03/13/21 05:10 Nucleated RBC % Not Reportable 03/13/21 05:10 Neutrophils # (Manual) 25.1 10^3/uL (1.5-6.6) H 03/13/21 05:10 Lymphocytes # (Manual) 3.0 10^3/uL (1.5-3.5) 03/13/21 05:10 Monocytes # (Manual) 1.8 10^3/uL (0.0-1.0) H 03/13/21 05:10 Eosinophils # (Manual) 0.0 10^3/uL (0-0.7) 03/13/21 05:10 Basophils # (Manual) 0.0 10^3/uL (0-0.1) 03/13/21 05:10 Differential Comment MANUAL DIFFERENTIAL 03/13/21 05:10 Manual Slide Review Indicated 03/12/21 10:38 WBC Morphology NORMAL APPEARANCE (NORMAL) 03/13/21 05:10 Platelet Estimate NORMAL (130-450,000) (NORMAL) 03/13/21 05:10 Platelet Morphology NORMAL APPEARANCE (NORMAL) 03/13/21 05:10 RBC Morph Micro Appear NORMAL APPEARANCE (NORMAL) 03/13/21 05:10 PT 17.7 secs (9.9-12.6) H 03/12/21 13:10 INR 1.6 (0.8-1.2) H 03/12/21 13:10 Sodium 141 mmol/L (135-145) 03/13/21 05:10 Potassium 4.8 mmol/L (3.5-5.0) 03/13/21 05:10 Chloride 112 mmol/L (101-111) H 03/13/21 05:10 Carbon Dioxide 18 mmol/L (21-32) L 03/13/21 05:10 Anion Gap 11.0 (6-13) 03/13/21 05:10 BUN 76 mg/dL (6-20) H 03/13/21 05:10 Creatinine 1.9 mg/dL (0.4-1.0) H 03/13/21 05:10 Estimated GFR (MDRD) 25 (>89) L 03/13/21 05:10 Glucose 73 mg/dL (70-100) 03/13/21 05:10 POC Whole Bld Glucose 117 mg/dL (70 - 100) H 03/13/21 12:57 Lactic Acid 1.7 mmol/L (0.5-2.2) 03/13/21 05:10 Calcium 8.8 mg/dL (8.5-10.3) 03/13/21 05:10 Phosphorus 2.9 mg/dL (2.5-4.6) 03/13/21 05:10 Magnesium 1.9 mg/dL (1.7-2.8) 03/13/21 05:10 Total Bilirubin 0.8 mg/dL (0.2-1.0) 03/12/21 11:31 AST 36 IU/L (10-42) 03/12/21 11:31 ALT < 10 IU/L (10-60) L 03/12/21 11:31 Alkaline Phosphatase 112 IU/L (42-121) 03/12/21 11:31 Total Creatine Kinase 12 IU/L (22-269) L 03/12/21 15:08 Troponin I High Sens 63.9 ng/L (2.3-14.8) H* 03/12/21 15:08 B-Natriuretic Peptide 230 pg/mL (5-100) H 03/12/21 11:31 Total Protein 7.6 g/dL (6.7-8.2) 03/12/21 11:31 Albumin 3.7 g/dL (3.2-5.5) 03/12/21 11:31 Globulin 3.9 g/dL (2.1-4.2) 03/12/21 11:31 Albumin/Globulin Ratio 0.9 (1.0-2.2) L 03/12/21 11:31 Lipase 40 U/L (22-51) 03/12/21 11:31 Urine Color BROWN 03/12/21 22:48 Urine Clarity CLOUDY (CLEAR) 03/12/21 22:48 Urine pH 5.0 PH (5.0-7.5) 03/12/21 22:48 Ur Specific [place] 1.025 (1.002-1.030) 03/12/21 22:48 Urine Protein >=300 mg/dL (NEGATIVE) H 03/12/21 22:48 Urine Glucose (UA) NEGATIVE mg/dL (NEGATIVE) 03/12/21 22:48 Urine Ketones NEGATIVE mg/dL (NEGATIVE) 03/12/21 22:48 Urine Occult Blood LARGE (NEGATIVE) H 03/12/21 22:48 Urine Nitrite POSITIVE (NEGATIVE) H 03/12/21 22:48 Urine Bilirubin NEGATIVE (NEGATIVE) 03/12/21 22:48 Urine Urobilinogen 0.2 (NORMAL) E.U./dL (NORMAL) 03/12/21 22:48 Ur Leukocyte Esterase MODERATE (NEGATIVE) H 03/12/21 22:48 Urine RBC 11-25 /HPF (0-5) H 03/12/21 22:48 Urine WBC 6-10 /HPF (0-5) H 03/12/21 22:48 Ur Squamous Epith Cells NONE SEEN (<= Few) 03/12/21 22:48 Urine Bacteria Many /HPF (None Seen) H 03/12/21 22:48 Ur Microscopic Review INDICATED 03/12/21 22:48 Urine Culture Comments INDICATED 03/12/21 22:48 Nasal Adenovirus (PCR) NOT DETECTED 03/12/21 14:27 Nasal B. parapertussis DNA (PCR) NOT DETECTED 03/12/21 14:27 Nasal Coronavir 229E PCR NOT DETECTED 03/12/21 14:27 Nasal Coronavir HKU1 PCR NOT DETECTED 03/12/21 14:27 Nasal Coronavir NL63 PCR NOT DETECTED 03/12/21 14:27 Nasal Coronavir OC43 PCR NOT DETECTED 03/12/21 14:27 Nasal Enterovir/Rhinovir PCR NOT DETECTED 03/12/21 14:27 Nasal Influenza B PCR NOT DETECTED 03/12/21 14:27 Nasal Influenza A PCR NOT DETECTED 03/12/21 14:27 Nasal Parainfluen 1 PCR NOT DETECTED 03/12/21 14:27 Nasal Parainfluen 2 PCR NOT DETECTED 03/12/21 14:27 Nasal Parainfluen 3 PCR NOT DETECTED 03/12/21 14:27 Nasal Parainfluen 4 PCR NOT DETECTED 03/12/21 14:27 Nasal RSV (PCR) NOT DETECTED 03/12/21 14:27 Nasal Screen MRSA (PCR) NEGATIVE (NEGATIVE) 03/12/21 14:15 Nasal B.pertussis DNA PCR NOT DETECTED 03/12/21 14:27 Nasal C.pneumoniae (PCR) NOT DETECTED 03/12/21 14:27 Brian Human Metapneumo PCR NOT DETECTED 03/12/21 14:27 Nasal M.pneumoniae (PCR) NOT DETECTED 03/12/21 14:27 Nasal SARS-CoV-2 (PCR) NOT DETECTED 03/12/21 14:27 - Procedures Procedures: Procedures EXCISION OF ASCENDING COLON, ENDO, DIAGN (07/05/16) EXCISION OF DESCENDING COLON, ENDO, DIAGN (07/05/16) EXCISION OF RECTUM, ENDO, DIAGN (07/05/16) EXCISION OF SIGMOID COLON, ENDO, DIAGN (07/05/16) EXCISION OF TRANSVERSE COLON, ENDO, DIAGN (07/05/16) Sepsis Event Note (H) - Evaluation Current Stage of Sepsis: Severe sepsis Possible source of Sepsis: positive: Genitourinary - Sepsis Criteria Sepsis Criteria: Recorded Heart Rate greater than 90 bpm, WBC count greater than 12,000 or less than 4000, DIRECTOR OF OPERATIONS SUPPORT: altered consciousness (unrelated to primary neuro pathology), Renal: urine output less than 0.5ml/kg/hr for 2 hours or creatinine gr, Metabolic: lactate > 2 mmol/L
[2021-03-13] MEDS: SODIUM CHLORIDE FLUSH 0.9% 10 ML SYRINGE IVP PRN (16:21)
[2021-03-13] MEDS: ATORVASTATIN 10 MG TABLET PO SCH (20:36)
[2021-03-13] MEDS: MIRTAZAPINE 15 MG TABLET PO SCH (20:36)
[2021-03-14] MEDS: METOPROLOL 5 MG/5 ML VIAL IVP SCH ×5 (00:03→23:21)
[2021-03-14] MEDS: SODIUM CHLORIDE FLUSH 0.9% 10 ML SYRINGE IVP SCH ×4 (00:04→23:21)
[2021-03-14 05:36] LABS: BASOPHILS % (AUTO) 0.1 %; EOSINOPHILS % (AUTO) 0.1 %; HCT - HEMATOCRIT 38.1 % (37.0-47.0); HGB - HEMOGLOBIN 11.9 g/dL (12.0-16.0); LYMPHOCYTES % (AUTO) 5.7 %; MEAN CORPUSCULAR HEMOGLOBIN 27.7 pg (27.0-31.0); MEAN CORPUSCULAR HGB CONC 31.2 g/dL (32.0-36.0); MEAN CORPUSCULAR VOLUME 88.6 fL (81.0-99.0); MONOCYTES % (AUTO) 3.1 %; NEUTROPHILS % (AUTO) 89.7 %; PLT - PLATELET COUNT 142 10^3/uL (130-450); RED CELL DISTRIBUTION WIDTH 18.3 % (12.0-15.0); WHITE BLOOD COUNT 33.3 x10^3/uL (4.8-10.8)
[2021-03-14 05:38] LABS: ABNORMAL LYMPHS % (MANUAL) 0 %; BAND NEUTROPHILS % (MANUAL) 0 %
[2021-03-14 05:45] LABS: CALCIUM 8.5 mg/dL (8.5-10.3); CREATININE 1.4 mg/dL (0.4-1.0); MAGNESIUM 2.1 mg/dL (1.7-2.8); PHOSPHORUS 2.2 mg/dL (2.5-4.6); POTASSIUM 3.3 mmol/L (3.5-5.0)
[2021-03-14 05:55] LABS: LYMPHOCYTES % (MANUAL) 9 %; MONOCYTES # (MANUAL) 1.3 10^3/uL (0.0-1.0)
[2021-03-14 05:56] LABS: DIFFERENTIAL COMMENT MANUAL DIFFERENTIAL; PLATELET ESTIMATE, MANUAL NORMAL (130-450,000) (NORMAL); PLATELET MORPHOLOGY NORMAL APPEARANCE (NORMAL); RBC MORPHOLOGY (MULTIPLE) NORMAL APPEARANCE (NORMAL); WBC MORPHOLOGY (MULTIPLE) NORMAL APPEARANCE (NORMAL)
[2021-03-14 06:08] LABS: CALCIUM, IONIZED 1.19 mmol/L (1.15-1.33); VBG PH 7.445 (7.31-7.41)
[2021-03-14] MEDS ORDERED: NEUTRA-PHOS 250 MG TABLET PO SCH (08:00)
[2021-03-14] MEDS ORDERED: POTASSIUM CHLORIDE 20 MEQ TABLET PO SCH (08:00)
[2021-03-14] MEDS ORDERED: DEXTROSE 5%-LACTATED RINGERS 1,000 ML IV SCH (08:34)
[2021-03-14] MEDS: PIPERACILLIN/TAZOBACTAM 3.375 GM in SODIUM CHLORIDE 0.9% MINIBAG 100 ML IV SCH ×3 (08:38→23:21)
[2021-03-14] MEDS: SODIUM CHLORIDE FLUSH 0.9% 10 ML SYRINGE IVP PRN (08:44)
[2021-03-14] MEDS: ASPIRIN EC 81 MG TABLET PO SCH (09:08)
[2021-03-14] MEDS: polyethylene glycoL 3350 17 GM PACKET PO SCH (09:40)
[2021-03-14] MEDS: D5NS W/20 MEQ KCL 1,000 ML IV SCH ×2 (09:46→23:21)
[2021-03-14] MEDS: ZINC OXIDE 20% OINT 30 GM TUBE TOP PRN (09:46)
[2021-03-14] MEDS: HEPARIN 5,000 UNIT/ML VIAL SUBQ SCH ×2 (10:27→21:43)
[2021-03-14] MEDS ORDERED: POTASSIUM PHOSPHATE 15 MMOL in SODIUM CHLORIDE 0.9% 250 ML IV ONE (11:00)
--- NOTE | 2021-03-14 16:04 | PROVIDER PROGRESS NOTE ---
Assessment/Plan - Problem List (1) Encephalopathy Assessment/Plan: She is more obtunded today, without getting sedatives or narcotics. This is in parellel with a rising WBC. Will continue iv fluids Will broaden antibx Follow WBC daily If neuro status remains worse, will obtain CT head and consider LP Remain in ICU (2) Severe sepsis Assessment/Plan: Her WBC has risen since yesterday from 29 to 33. Her Abd imaging was done at admission. She has no pulm sx. Her sacrum does have several decubiti. Her blood cx are neg to date. Will broaden anti-bx by adding Vanco. Continue IV Zosyn. Foloow CBC daily (3) GALLO (acute kidney injury) Assessment/Plan: Improving creatinine. Continue with IV fluids. Avoid nephrotoxins. Follow BMP daily (4) UTI (urinary tract infection) Qualifiers: Urinary tract infection type: site unspecified Hematuria presence: without hematuria Qualified Code(s): N39.0 - Urinary tract infection, site not specified Assessment/Plan: Urine culture results are still pending. Blood cultures are negative today. Continue with empiric IV Zosyn (5) Atrial fibrillation with rapid ventricular response Assessment/Plan: Her heart rate is 100-1 10 overall. Since blood pressure is still soft, will continue with low doses of Cardizem for rate control and continue with IV fluids. We will obtain an Echo to determine if there is concern for continuing IV fluids. (6) Staghorn calculus Assessment/Plan: Not obstructing outflow (7) History of stroke with residual deficit Assessment/Plan: As per hx (8) Metabolic acidosis Assessment/Plan: Improving Follow BMP daily (9) Hypoglycemia Assessment/Plan: Resolved by starting IV containing D5 yesterday. We will continue with IV fluids since she is more obtunded and not taking adequate nutrition and calories by mouth. (10) Hyperkalemia Assessment/Plan: Resolved - Current Meds Current Meds: Current Medications Generic Name Dose Route Start Last Admin Trade Name Freq PRN Reason Stop Dose Admin Aspirin 81 mg 03/14/21 09:00 03/14/21 09:08 Aspirin Ec 81 Mg Tablet PO Not Given DAILY AVELINO Atorvastatin Calcium 20 mg 03/13/21 21:00 03/13/21 20:36 Atorvastatin 10 Mg Tablet PO 20 mg QPM AVELINO Administration Heparin Sodium (Porcine) 5,000 unit 03/12/21 21:00 03/14/21 10:27 Heparin 5,000 Unit/Ml Vial SUBQ 5,000 unit BID AVELINO Administration Piperacillin Sod/Tazobactam 100 mls @ 25 mls/hr 03/14/21 08:00 03/14/21 12:45 Sod 3.375 gm/ Sodium Chloride IV Infused Q8H AVELINO Infusion Potassium Chloride/Dextrose/Sod Cl 1,000 mls @ 100 mls/hr 03/14/21 10:00 03/14/21 12:10 D5ns W/20 Meq Kcl IV 100 mls/hr .Q10H AVELINO Infusion Metoprolol Tartrate 5 mg 03/13/21 10:23 03/14/21 12:10 Metoprolol 5 Mg/5 Ml Vial IVP Not Given Q6HR AVELINO Mirtazapine 7.5 mg 03/13/21 21:00 03/13/21 20:36 Mirtazapine 15 Mg Tablet PO 7.5 mg QPM AVELINO Administration Multi-Ingredient Ointment 1 applic 03/13/21 10:42 03/14/21 09:46 Zinc Oxide 20% Oint 30 Gm Tube TOP 1 applic PRN PRN Administration Skin Care Polyethylene Glycol 17 gm 03/13/21 12:00 03/14/21 09:40 Polyethylene Glycol 3350 17 Gm Packet PO Not Given DAILY AVELINO Sodium Chloride 10 ml 03/12/21 17:00 03/14/21 12:09 Sodium Chloride Flush 0.9% 10 Ml Syringe IVP Not Given 0100,0900,1700 AVELINO Sodium Chloride 10 ml 03/12/21 12:26 03/14/21 08:44 Sodium Chloride Flush 0.9% 10 Ml Syringe IVP 10 ml PRN PRN Administration NEEDED PER PROVIDER ORDERS - Lab Result Fish Bone Diagrams: 03/14/21 04:33 03/14/21 04:33 - Additional Planning My Orders: My Active Orders 03/13/21 21:00 Atorvastatin [Lipitor] 20 mg PO QPM Mirtazapine [Remeron] 7.5 mg PO QPM 03/14/21 08:36 Echo Transthoracic Complete [ECHO] Routine 03/14/21 09:00 Aspirin EC [Ecotrin] 81 mg PO DAILY 03/14/21 09:15 PICC Line Care [RC] Q4H PICC Line Insert [RC] .ONCE 03/14/21 10:00 D5ns W/20 Meq KCl 1,000 ml IV 100 mls/hr 03/14/21 16:30 Vancomycin Inj [Vancomycin] 1 gm Vancomycin Inj [Vancomycin Hcl] 500 mg Sodium Chloride 0.9% [Normal Saline 0.9%] 500 ml IV ONCE Subjective - Subjective Patient Reports: Other (Not communicative) Nursing Reports: Other (Cannot follow commands, opens eyes to name or touch and closes again, no conversation today) Objective Vital Signs: Vital Signs - 24 hr 03/13/21 03/13/21 03/13/21 17:00 17:47 18:00 Temperature 37.1 C 37.1 C 37.2 C Heart Rate 111 H Heart Rate [ 111 H 117 H Monitoring electrodes] Respiratory 21 21 17 Rate Blood Pressure Blood Pressure 107/52 L 106/70 [Left Brachial artery] O2 Saturation 96 98 95 03/13/21 03/13/21 03/13/21 18:22 18:30 18:31 Temperature Heart Rate Heart Rate [ 111 H 111 H Monitoring electrodes] Respiratory Rate Blood Pressure 106/70 Blood Pressure 104/55 L 97/57 L [Left Brachial artery] O2 Saturation 03/13/21 03/13/21 03/13/21 19:00 19:06 20:00 Temperature 36.7 C 36.7 C Heart Rate Heart Rate [ 105 H 112 H Monitoring electrodes] Respiratory 17 19 Rate Blood Pressure Blood Pressure 105/62 103/59 L [Left Brachial artery] O2 Saturation 99 96 03/13/21 03/13/21 03/13/21 21:00 22:00 23:00 Temperature 37.3 C Heart Rate Heart Rate [ 116 H 116 H 130 H Monitoring electrodes] Respiratory 18 18 19 Rate Blood Pressure Blood Pressure 94/51 L 106/59 L 99/56 L [Left Brachial artery] O2 Saturation 97 93 95 03/14/21 03/14/21 03/14/21 00:00 00:03 01:00 Temperature Heart Rate Heart Rate [ 120 H 116 H Monitoring electrodes] Respiratory 18 17 Rate Blood Pressure 96/63 Blood Pressure 96/63 102/61 [Left Brachial artery] O2 Saturation 94 95 03/14/21 03/14/21 03/14/21 02:00 03:00 04:00 Temperature 37.3 C 37.3 C 37.1 C Heart Rate Heart Rate [ 112 H 114 H 118 H Monitoring electrodes] Respiratory 17 16 20 Rate Blood Pressure Blood Pressure 96/59 L 101/59 L 103/57 L [Left Brachial artery] O2 Saturation 96 95 94 03/14/21 03/14/21 03/14/21 05:00 06:00 06:14 Temperature Heart Rate Heart Rate [ 121 H 123 H Monitoring electrodes] Respiratory 19 16 Rate Blood Pressure 94/50 L Blood Pressure 106/60 101/52 L [Left Brachial artery] O2 Saturation 94 94 03/14/21 03/14/21 03/14/21 07:00 08:00 08:54 Temperature 37 C Heart Rate Heart Rate [ 116 H 118 H Monitoring electrodes] Respiratory 18 28 H 19 Rate Blood Pressure Blood Pressure 108/85 H 105/56 L [Left Brachial artery] O2 Saturation 94 97 95 03/14/21 03/14/21 03/14/21 09:00 10:00 11:00 Temperature Heart Rate Heart Rate [ 112 H 126 H 111 H Monitoring electrodes] Respiratory 31 H 30 H 19 Rate Blood Pressure Blood Pressure 105/52 L 95/63 99/52 L [Left Brachial artery] O2 Saturation 93 98 94 03/14/21 03/14/21 03/14/21 12:00 12:10 13:00 Temperature 37.1 C Heart Rate Heart Rate [ 102 H 123 H Monitoring electrodes] Respiratory 23 15 Rate Blood Pressure 93/49 L Blood Pressure 93/49 L 101/77 [Left Brachial artery] O2 Saturation 98 96 03/14/21 03/14/21 14:00 14:48 Temperature 37.2 C 37.2 C Heart Rate Heart Rate [ 99 124 H Monitoring electrodes] Respiratory 17 17 Rate Blood Pressure Blood Pressure 93/48 L 105/59 L [Left Brachial artery] O2 Saturation 96 98 Oxygen O2 Source Room air Oxygen Flow Rate 2 I&O (Last 24 Hrs): Intake and Output Totals x24h 03/12/21 03/13/21 03/14/21 23:59 23:59 23:59 Intake Total 6410 3072.000 1288.577 Output Total 225 777 587 Balance 6185 2295.000 701.577 General: Other (Obtunded) HEENT: Mucous membr. moist/pink Neck: Supple Neuro: Other (Obtiunded, hands are contracted) Cardiovascular: No murmurs, Other (Irreg irreg) Respiratory: No respiratory distress, Breath sounds nml Abdomen: Normal bowel sounds, Soft, No tenderness Extremities: No clubbing, No edema, Other (No further skin tenting) - Results Results: Laboratory Results WBC 33.3 x10^3/uL (4.8-10.8) H 03/14/21 04:33 RBC 4.30 10^6/uL (4.20-5.40) 03/14/21 04:33 Hgb 11.9 g/dL (12.0-16.0) L 03/14/21 04:33 Hct 38.1 % (37.0-47.0) 03/14/21 04:33 MCV 88.6 fL (81.0-99.0) 03/14/21 04:33 MCH 27.7 pg (27.0-31.0) 03/14/21 04:33 MCHC 31.2 g/dL (32.0-36.0) L 03/14/21 04:33 RDW 18.3 % (12.0-15.0) H 03/14/21 04:33 Plt Count 142 10^3/uL (130-450) 03/14/21 04:33 MPV 10.0 fL (7.9-10.8) 03/14/21 04:33 Neut # (Auto) Not Reportable 03/14/21 04:33 Lymph # (Auto) Not Reportable 03/14/21 04:33 Union # (Auto) Not Reportable 03/14/21 04:33 Eos # (Auto) Not Reportable 03/14/21 04:33 Baso # (Auto) Not Reportable 03/14/21 04:33 Absolute Nucleated RBC Not Reportable 03/14/21 04:33 Total Counted 100 03/14/21 04:33 Band Neuts % (Manual) 0 % (0-10) 03/14/21 04:33 Abnorm Lymph % (Manual) 0 % 03/14/21 04:33 Nucleated RBC % Not Reportable 03/14/21 04:33 Neutrophils # (Manual) 29.0 10^3/uL (1.5-6.6) H 03/14/21 04:33 Lymphocytes # (Manual) 3.0 10^3/uL (1.5-3.5) 03/14/21 04:33 Monocytes # (Manual) 1.3 10^3/uL (0.0-1.0) H 03/14/21 04:33 Eosinophils # (Manual) 0.0 10^3/uL (0-0.7) 03/14/21 04:33 Basophils # (Manual) 0.0 10^3/uL (0-0.1) 03/14/21 04:33 Differential Comment MANUAL DIFFERENTIAL 03/14/21 04:33 Manual Slide Review Indicated 03/12/21 10:38 WBC Morphology NORMAL APPEARANCE (NORMAL) 03/14/21 04:33 Platelet Estimate NORMAL (130-450,000) (NORMAL) 03/14/21 04:33 Platelet Morphology NORMAL APPEARANCE (NORMAL) 03/14/21 04:33 RBC Morph Micro Appear NORMAL APPEARANCE (NORMAL) 03/14/21 04:33 PT 17.7 secs (9.9-12.6) H 03/12/21 13:10 INR 1.6 (0.8-1.2) H 03/12/21 13:10 VBG pH 7.445 (7.31-7.41) H 03/14/21 05:49 Ionized Calcium 1.19 mmol/L (1.15-1.33) 03/14/21 05:49 Sodium 146 mmol/L (135-145) H 03/14/21 04:33 Potassium 3.3 mmol/L (3.5-5.0) L 03/14/21 04:33 Chloride 115 mmol/L (101-111) H 03/14/21 04:33 Carbon Dioxide 19 mmol/L (21-32) L 03/14/21 04:33 Anion Gap 12.0 (6-13) 03/14/21 04:33 BUN 58 mg/dL (6-20) H 03/14/21 04:33 Creatinine 1.4 mg/dL (0.4-1.0) H 03/14/21 04:33 Estimated GFR (MDRD) 36 (>89) L 03/14/21 04:33 Glucose 101 mg/dL (70-100) H 03/14/21 04:33 POC Whole Bld Glucose 108 mg/dL (70 - 100) H 03/14/21 11:33 Lactic Acid 1.7 mmol/L (0.5-2.2) 03/13/21 05:10 Calcium 8.5 mg/dL (8.5-10.3) 03/14/21 04:33 Phosphorus 2.2 mg/dL (2.5-4.6) L 03/14/21 04:33 Magnesium 2.1 mg/dL (1.7-2.8) 03/14/21 04:33 Total Bilirubin 0.8 mg/dL (0.2-1.0) 03/12/21 11:31 AST 36 IU/L (10-42) 03/12/21 11:31 ALT < 10 IU/L (10-60) L 03/12/21 11:31 Alkaline Phosphatase 112 IU/L (42-121) 03/12/21 11:31 Total Creatine Kinase 12 IU/L (22-269) L 03/12/21 15:08 Troponin I High Sens 63.9 ng/L (2.3-14.8) H* 03/12/21 15:08 B-Natriuretic Peptide 230 pg/mL (5-100) H 03/12/21 11:31 Total Protein 7.6 g/dL (6.7-8.2) 03/12/21 11:31 Albumin 3.7 g/dL (3.2-5.5) 03/12/21 11:31 Globulin 3.9 g/dL (2.1-4.2) 03/12/21 11:31 Albumin/Globulin Ratio 0.9 (1.0-2.2) L 03/12/21 11:31 Lipase 40 U/L (22-51) 03/12/21 11:31 Urine Color BROWN 03/12/21 22:48 Urine Clarity CLOUDY (CLEAR) 03/12/21 22:48 Urine pH 5.0 PH (5.0-7.5) 03/12/21 22:48 Ur Specific [place] 1.025 (1.002-1.030) 03/12/21 22:48 Urine Protein >=300 mg/dL (NEGATIVE) H 03/12/21 22:48 Urine Glucose (UA) NEGATIVE mg/dL (NEGATIVE) 03/12/21 22:48 Urine Ketones NEGATIVE mg/dL (NEGATIVE) 03/12/21 22:48 Urine Occult Blood LARGE (NEGATIVE) H 03/12/21 22:48 Urine Nitrite POSITIVE (NEGATIVE) H 03/12/21 22:48 Urine Bilirubin NEGATIVE (NEGATIVE) 03/12/21 22:48 Urine Urobilinogen 0.2 (NORMAL) E.U./dL (NORMAL) 03/12/21 22:48 Ur Leukocyte Esterase MODERATE (NEGATIVE) H 03/12/21 22:48 Urine RBC 11-25 /HPF (0-5) H 03/12/21 22:48 Urine WBC 6-10 /HPF (0-5) H 03/12/21 22:48 Ur Squamous Epith Cells NONE SEEN (<= Few) 03/12/21 22:48 Urine Bacteria Many /HPF (None Seen) H 03/12/21 22:48 Ur Microscopic Review INDICATED 03/12/21 22:48 Urine Culture Comments INDICATED 03/12/21 22:48 Nasal Adenovirus (PCR) NOT DETECTED 03/12/21 14:27 Nasal B. parapertussis DNA (PCR) NOT DETECTED 03/12/21 14:27 Nasal Coronavir 229E PCR NOT DETECTED 03/12/21 14:27 Nasal Coronavir HKU1 PCR NOT DETECTED 03/12/21 14:27 Nasal Coronavir NL63 PCR NOT DETECTED 03/12/21 14:27 Nasal Coronavir OC43 PCR NOT DETECTED 03/12/21 14:27 Nasal Enterovir/Rhinovir PCR NOT DETECTED 03/12/21 14:27 Nasal Influenza B PCR NOT DETECTED 03/12/21 14:27 Nasal Influenza A PCR NOT DETECTED 03/12/21 14:27 Nasal Parainfluen 1 PCR NOT DETECTED 03/12/21 14:27 Nasal Parainfluen 2 PCR NOT DETECTED 03/12/21 14:27 Nasal Parainfluen 3 PCR NOT DETECTED 03/12/21 14:27 Nasal Parainfluen 4 PCR NOT DETECTED 03/12/21 14:27 Nasal RSV (PCR) NOT DETECTED 03/12/21 14:27 Nasal Screen MRSA (PCR) NEGATIVE (NEGATIVE) 03/12/21 14:15 Nasal B.pertussis DNA PCR NOT DETECTED 03/12/21 14:27 Nasal C.pneumoniae (PCR) NOT DETECTED 03/12/21 14:27 Brian Human Metapneumo PCR NOT DETECTED 03/12/21 14:27 Nasal M.pneumoniae (PCR) NOT DETECTED 03/12/21 14:27 Nasal SARS-CoV-2 (PCR) NOT DETECTED 03/12/21 14:27 - Procedures Procedures: Procedures EXCISION OF ASCENDING COLON, ENDO, DIAGN (07/05/16) EXCISION OF DESCENDING COLON, ENDO, DIAGN (07/05/16) EXCISION OF RECTUM, ENDO, DIAGN (07/05/16) EXCISION OF SIGMOID COLON, ENDO, DIAGN (07/05/16) EXCISION OF TRANSVERSE COLON, ENDO, DIAGN (07/05/16) Sepsis Event Note (H) - Evaluation Current Stage of Sepsis: Severe sepsis Possible source of Sepsis: positive: Genitourinary - Sepsis Criteria Sepsis Criteria: Recorded Heart Rate greater than 90 bpm, WBC count greater than 12,000 or less than 4000, [employer]ATOR: altered consciousness (unrelated to primary neuro pathology), Renal: urine output less than 0.5ml/kg/hr for 2 hours or creatinine gr, Metabolic: lactate > 2 mmol/L
[2021-03-14] MEDS ORDERED: VANCOMYCIN INJ 1 GM, VANCOMYCIN INJ 500 MG in SODIUM CHLORIDE 0.9% 500 ML IV SCH (16:30)
--- NOTE | 2021-03-14 16:33 | ANESTHESIA PROCEDURE NOTE ---
Anesth Central Line Template - Central Line Central Line Preparation: Consent Obtained, Time out completed, Ultrasound used, Sterile prep and drape Central line location: Right Basilic Central line type: PICC Double Lumen Central line catheter tip site resides: Superior vena cava (SVC) Central line aftercare: Secured, Placement confirmed, No complications, Pt tolerated well Other Info/Details: Time out completed. Right arm prepped with chlorohexadine. Full sterile gown, glove and drape utilized. The right basilic vein accessed under ultrasound guidance and wire advanced with ease. Sheath inserted and wire removed. 5FR dual lumen catheter trimmed to 45cm was inserted and tip tracker showed tip headed towards the heart. Unable to use p-wave confirmation due to afib. Line secured with 8cm exposed. Both ports aspirate and flush with ease. Chest xray shows tip in the SVC. Patient tolerated well. Ok to use line.
--- NOTE | 2021-03-14 16:45 | XRAY Report ---
PROCEDURE: Chest for Line Placement INDICATIONS: New PICC line TECHNIQUE: One view of the chest was acquired. COMPARISON: 03/12/2021. FINDINGS: Surgical changes and devices: PICC line projects to the distal SVC via a right-sided approach. Lungs and pleura: Small left-sided pleural fluid collection. Consolidation is developed in the medial aspects of the lung bases bilaterally left greater than right suspicious for pneumonia. Mediastinum: Mediastinal contours appear normal. Heart size is normal. Bones and chest wall: No suspicious bony lesions. Overlying soft tissues appear unremarkable. IMPRESSION: 1. Tip of PICC line projects the distal SVC. 2. Bibasilar lung consolidation left greater than right concerning for pneumonia. Reviewed by: India Leung MD, PhD on 03/14/2021 4:44 PM PDT Approved by: India Leung MD, PhD on 03/14/2021 4:44 PM PDT Station ID: [id number]
[2021-03-14] MEDS ORDERED: ACETAMINOPHEN 650 MG SUPP PR PRN (19:02)
[2021-03-14] MEDS: MIRTAZAPINE 15 MG TABLET PO SCH (21:32)
[2021-03-14] MEDS: ATORVASTATIN 10 MG TABLET PO SCH (21:32)
[2021-03-15] MEDS: D5NS W/20 MEQ KCL 1,000 ML IV SCH ×2 (00:22→10:36)
[2021-03-15] MEDS ORDERED: DEXTROSE 5% 250 ML IV ONE (01:58)
--- NOTE | 2021-03-15 03:45 | PROVIDER PROGRESS NOTE ---
Manager Quantitative Note - Manager Quantitative Note Manager Quantitative Note: March 15, 2021 2 AM Her ICU nurse reports that her mean arterial pressures have been in the low 60s for the last 3 hours. Urine output is tapering off. Review of her intake and output shows her to be close to 10 L positive since March 12. Currently on 100 cc an hour. Lactic acid is normal. Heart rate 124. 91 to 92% on room air. Started on Levophed to support her pressure and hopefully improve her urine output.
[2021-03-15 05:05] LABS: EOSINOPHILS % (AUTO) 0.6 %; HCT - HEMATOCRIT 36.7 % (37.0-47.0); HGB - HEMOGLOBIN 11.3 g/dL (12.0-16.0); LYMPHOCYTES % (AUTO) 5.7 %; MEAN CORPUSCULAR HEMOGLOBIN 27.3 pg (27.0-31.0); MEAN CORPUSCULAR HGB CONC 30.8 g/dL (32.0-36.0); MEAN CORPUSCULAR VOLUME 88.6 fL (81.0-99.0); MONOCYTES % (AUTO) 3.4 %; NEUTROPHILS % (AUTO) 88.8 %; PLT - PLATELET COUNT 149 10^3/uL (130-450); RED BLOOD COUNT 4.14 10^6/uL (4.20-5.40); RED CELL DISTRIBUTION WIDTH 18.5 % (12.0-15.0); WHITE BLOOD COUNT 30.1 x10^3/uL (4.8-10.8)
[2021-03-15 05:06] LABS: CALCIUM, IONIZED 1.11 mmol/L (1.15-1.33); VBG PH 7.398 (7.31-7.41)
[2021-03-15 05:11] LABS: ABNORMAL LYMPHS % (MANUAL) 0 %; BAND NEUTROPHILS % (MANUAL) 0 %
[2021-03-15 05:15] LABS: CALCIUM 7.8 mg/dL (8.5-10.3); MAGNESIUM 1.9 mg/dL (1.7-2.8); PHOSPHORUS 2.5 mg/dL (2.5-4.6); POTASSIUM 3.1 mmol/L (3.5-5.0)
[2021-03-15 05:35] LABS: DIFFERENTIAL COMMENT MANUAL DIFFERENTIAL; LYMPHOCYTES # (MANUAL) 1.5 10^3/uL (1.5-3.5); LYMPHOCYTES % (MANUAL) 5 %; MONOCYTES # (MANUAL) 0.9 10^3/uL (0.0-1.0); NEUTROPHILS # (MANUAL) 27.7 10^3/uL (1.5-6.6); PLATELET ESTIMATE, MANUAL NORMAL (130-450,000) (NORMAL); PLATELET MORPHOLOGY NORMAL APPEARANCE (NORMAL); RBC MORPHOLOGY (MULTIPLE) 1+ BURR CELLS (NORMAL); WBC MORPHOLOGY (MULTIPLE) NORMAL APPEARANCE (NORMAL)
[2021-03-15] MEDS: METOPROLOL 5 MG/5 ML VIAL IVP SCH ×4 (05:48→23:53)
[2021-03-15] MEDS: POTASSIUM CHLOR 20 MEQ/100 ML 20 MEQ/100 ML BAG IV SCH ×2 (08:08→10:35)
[2021-03-15] MEDS: PIPERACILLIN/TAZOBACTAM 3.375 GM in SODIUM CHLORIDE 0.9% MINIBAG 100 ML IV SCH ×2 (08:08→16:03)
[2021-03-15] MEDS: ASPIRIN EC 81 MG TABLET PO SCH (08:09)
[2021-03-15] MEDS: HEPARIN 5,000 UNIT/ML VIAL SUBQ SCH ×2 (08:09→21:57)
[2021-03-15] MEDS: polyethylene glycoL 3350 17 GM PACKET PO SCH (08:09)
[2021-03-15] MEDS: SODIUM CHLORIDE FLUSH 0.9% 10 ML SYRINGE IVP SCH ×2 (08:10→16:03)
[2021-03-15] MEDS ORDERED: CALCIUM GLUCONATE 1,000 MG in SODIUM CHLORIDE 0.9% 50 ML IV ONE (08:30)
--- NOTE | 2021-03-15 13:29 | PROVIDER PROGRESS NOTE ---
Assessment/Plan - Problem List (1) Encephalopathy Assessment/Plan: She is slightly more awake today, She is on broadened antibx: Vanco was added to Zosyn Follow WBC daily If neuro status remains worse, will obtain CT head and consider LP Will start ng tube feeds for nutrition Remain in ICU (2) Severe sepsis Assessment/Plan: Her WBC has been very elevated: 29 to 33 to 31. A source was searched for: Her Abd imaging was done at admission. She has no pulm sx. Her sacrum does have several decubiti. Her blood cx are neg to date. Levophed was added at 0200 today, to maintain MAP of 65 mmHg minimum She is on broadened anti-bx. Follow CBC daily Will try to reach out to ID at , for assistance in managing her case (3) Hypernatremia Assessment/Plan: Her serum sodium has risen, caused by receiving NS for managing sepsis and hypotension. Will change iv fluids to D5 Follow BMP daily (4) GALLO (acute kidney injury) Assessment/Plan: Improving creatinine every day Continue with IV fluids. Avoid nephrotoxins. Follow BMP daily (5) UTI (urinary tract infection) Qualifiers: Urinary tract infection type: site unspecified Hematuria presence: without hematuria Qualified Code(s): N39.0 - Urinary tract infection, site not specified Assessment/Plan: Urine culture results are done and showed polymicrobial growth, suggesting a contaminant Blood cultures are negative today. Continue with empiric IV Zosyn and Vanco Will try to reach ID at (6) Atrial fibrillation with rapid ventricular response Assessment/Plan: Her heart rate is 100-110 overall. Since blood pressure is low, will continue with low doses of Cardizem for rate control and continue some IV fluids. We will obtain an Echo to determine if there is concern for continuing IV fluids. (7) Staghorn calculus Assessment/Plan: This was found on abd CT, is not obstructive (8) Hypokalemia Assessment/Plan: Will replace with K riders Follow BMP daily (9) History of stroke with residual deficit Assessment/Plan: As per Hx (10) Metabolic acidosis Assessment/Plan: Improved (11) Hypoglycemia Assessment/Plan: Resolved (12) Hyperkalemia Assessment/Plan: Resolved - Current Meds Current Meds: Current Medications Generic Name Dose Route Start Last Admin Trade Name Freq PRN Reason Stop Dose Admin Aspirin 81 mg 03/14/21 09:00 03/15/21 08:09 Aspirin Ec 81 Mg Tablet PO Not Given DAILY AVELINO Atorvastatin Calcium 20 mg 03/13/21 21:00 03/14/21 21:32 Atorvastatin 10 Mg Tablet PO Not Given QPM AVELINO Heparin Sodium (Porcine) 5,000 unit 03/12/21 21:00 03/15/21 08:09 Heparin 5,000 Unit/Ml Vial SUBQ 5,000 unit BID AVELINO Administration Piperacillin Sod/Tazobactam 100 mls @ 25 mls/hr 03/14/21 08:00 03/15/21 12:43 Sod 3.375 gm/ Sodium Chloride IV Infused Q8H AVELINO Infusion Potassium Chloride/Dextrose/Sod Cl 1,000 mls @ 100 mls/hr 03/14/21 10:00 03/15/21 10:36 D5ns W/20 Meq Kcl IV 100 mls/hr .Q10H AVELINO Administration Norepinephrine Bitartrate 8 mg 250 mls @ 15 mls/hr 03/15/21 02:00 03/15/21 10:00 / Dextrose IV 8 mcg/min .[id number] AVELINO 15 mls/hr Titration Protocol 8 MCG/MIN Metoprolol Tartrate 5 mg 03/13/21 10:23 03/15/21 12:48 Metoprolol 5 Mg/5 Ml Vial IVP 5 mg Q6HR AVELINO Administration Mirtazapine 7.5 mg 03/13/21 21:00 03/14/21 21:32 Mirtazapine 15 Mg Tablet PO Not Given QPM AVELINO Multi-Ingredient Ointment 1 applic 03/13/21 10:42 03/14/21 09:46 Zinc Oxide 20% Oint 30 Gm Tube TOP 1 applic PRN PRN Administration Skin Care Polyethylene Glycol 17 gm 03/13/21 12:00 03/15/21 08:09 Polyethylene Glycol 3350 17 Gm Packet PO Not Given DAILY AVELINO Sodium Chloride 10 ml 03/12/21 17:00 03/15/21 08:10 Sodium Chloride Flush 0.9% 10 Ml Syringe IVP 10 ml 0100,0900,1700 AVELINO Administration Sodium Chloride 10 ml 03/12/21 12:26 03/14/21 08:44 Sodium Chloride Flush 0.9% 10 Ml Syringe IVP 10 ml PRN PRN Administration NEEDED PER PROVIDER ORDERS - Lab Result Fish Bone Diagrams: 09/09/21 04:40 03/15/21 04:40 - Additional Planning My Orders: My Active Orders 03/14/21 19:02 Acetaminophen [Tylenol] 650 mg OH Q6HR PRN 03/14/21 19:03 RT - Obtain Arterial Specimen [RC] .ONCE ABG - ARTERIAL BLOOD GAS [BG] Stat 03/15/21 10:44 Nutrition Consult [CONS] Routine 03/15/21 22:00 Vancomycin Inj [Vancomycin] 1 gm Vancomycin Inj [Vancomycin Hcl] 500 mg Sodium Chloride 0.9% [Normal Saline 0.9%] 500 ml IV Q36H Subjective - Subjective Patient Reports: Other (Slightly more awake, opened her eyes and followed when her name was spoken) Objective Vital Signs: Vital Signs - 24 hr 03/14/21 03/14/21 03/14/21 14:00 14:48 16:00 Temperature 37.2 C 37.2 C 37.1 C Heart Rate [ 99 124 H 122 H Monitoring electrodes] Respiratory 17 17 24 Rate Blood Pressure Blood Pressure 93/48 L 105/59 L 102/66 [Left Brachial artery] O2 Saturation 96 98 95 03/14/21 03/14/21 03/14/21 17:00 18:00 18:50 Temperature 37.2 C 37.4 C Heart Rate [ 124 H 125 H Monitoring electrodes] Respiratory 16 24 Rate Blood Pressure 91/65 Blood Pressure 96/79 91/65 [Left Brachial artery] O2 Saturation 94 96 03/14/21 03/14/21 03/14/21 19:00 20:00 21:00 Temperature 37.4 C 37.6 C Heart Rate [ 120 H 139 H 125 H Monitoring electrodes] Respiratory 17 18 19 Rate Blood Pressure Blood Pressure 87/66 L 88/51 L 106/57 L [Left Brachial artery] O2 Saturation 94 92 95 03/14/21 03/14/21 03/14/21 22:00 23:00 23:21 Temperature 37.4 C Heart Rate [ 131 H 129 H Monitoring electrodes] Respiratory 17 19 Rate Blood Pressure 91/54 L Blood Pressure 97/61 104/84 H [Left Brachial artery] O2 Saturation 98 95 03/15/21 03/15/21 03/15/21 00:00 01:00 01:05 Temperature 37.2 C Heart Rate [ 117 H 114 H Monitoring electrodes] Respiratory 18 18 Rate Blood Pressure Blood Pressure 91/58 L 89/50 L 92/61 [Left Brachial artery] O2 Saturation 95 92 03/15/21 03/15/21 03/15/21 02:00 03:00 04:00 Temperature 36.9 C 36.9 C Heart Rate [ 124 H 119 H 122 H Monitoring electrodes] Respiratory 18 17 Rate Blood Pressure Blood Pressure 107/60 118/66 122/68 [Left Brachial artery] O2 Saturation 91 L 95 03/15/21 03/15/21 03/15/21 05:00 05:48 06:00 Temperature 36.9 C Heart Rate [ 111 H 101 H Monitoring electrodes] Respiratory 17 Rate Blood Pressure 124/64 Blood Pressure 124/64 115/63 [Left Brachial artery] O2 Saturation 97 92 03/15/21 03/15/21 03/15/21 07:00 08:00 09:00 Temperature 37.2 C 37.5 C Heart Rate [ 112 H 113 H 122 H Monitoring electrodes] Respiratory 19 21 19 Rate Blood Pressure Blood Pressure 115/72 116/69 122/79 [Left Brachial artery] O2 Saturation 95 94 94 03/15/21 03/15/21 03/15/21 10:00 11:00 12:00 Temperature 37.1 C 37.0 C Heart Rate [ 109 H 120 H 114 H Monitoring electrodes] Respiratory 20 19 20 Rate Blood Pressure Blood Pressure 119/67 118/76 116/68 [Left Brachial artery] O2 Saturation 93 94 92 03/15/21 03/15/21 12:48 13:00 Temperature Heart Rate [ 118 H Monitoring electrodes] Respiratory 19 Rate Blood Pressure 116/68 Blood Pressure 111/62 [Left Brachial artery] O2 Saturation 95 Oxygen O2 Source Room air Oxygen Flow Rate 2 I&O (Last 24 Hrs): Intake and Output Totals x24h 03/13/21 03/14/21 03/15/21 23:59 23:59 23:59 Intake Total 3072.000 2903.577 1419.750 Output Total 777 892 735 Balance 2295.000 2010.577 684.750 General: Other (Obtunded, moving spontaneously, opened eyes spontaneously) HEENT: Mucous membr. moist/pink Neck: Supple Neuro: Non Focal, Other (Lethargic) Cardiovascular: Regular rate, No murmurs Respiratory: No respiratory distress, Breath sounds nml Abdomen: Soft Extremities: No edema, Other (No skin tenting) - Results Results: Laboratory Results WBC 30.1 x10^3/uL (4.8-10.8) H 03/15/21 04:40 RBC 4.14 10^6/uL (4.20-5.40) L 03/15/21 04:40 Hgb 11.3 g/dL (12.0-16.0) L 03/15/21 04:40 Hct 36.7 % (37.0-47.0) L 03/15/21 04:40 MCV 88.6 fL (81.0-99.0) 03/15/21 04:40 MCH 27.3 pg (27.0-31.0) 03/15/21 04:40 MCHC 30.8 g/dL (32.0-36.0) L 03/15/21 04:40 RDW 18.5 % (12.0-15.0) H 03/15/21 04:40 Plt Count 149 10^3/uL (130-450) 03/15/21 04:40 MPV 10.0 fL (7.9-10.8) 03/15/21 04:40 Neut # (Auto) Not Reportable 03/15/21 04:40 Lymph # (Auto) Not Reportable 03/15/21 04:40 [place] # (Auto) Not Reportable 03/15/21 04:40 Eos # (Auto) Not Reportable 03/15/21 04:40 Baso # (Auto) Not Reportable 03/15/21 04:40 Absolute Nucleated RBC Not Reportable 03/15/21 04:40 Total Counted 100 03/15/21 04:40 Band Neuts % (Manual) 0 % (0-10) 03/15/21 04:40 Abnorm Lymph % (Manual) 0 % 03/15/21 04:40 Nucleated RBC % Not Reportable 03/15/21 04:40 Neutrophils # (Manual) 27.7 10^3/uL (1.5-6.6) H 03/15/21 04:40 Lymphocytes # (Manual) 1.5 10^3/uL (1.5-3.5) 03/15/21 04:40 Monocytes # (Manual) 0.9 10^3/uL (0.0-1.0) 03/15/21 04:40 Eosinophils # (Manual) 0.0 10^3/uL (0-0.7) 03/15/21 04:40 Basophils # (Manual) 0.0 10^3/uL (0-0.1) 03/15/21 04:40 Differential Comment MANUAL DIFFERENTIAL 03/15/21 04:40 Manual Slide Review Indicated 03/12/21 10:38 WBC Morphology NORMAL APPEARANCE (NORMAL) 03/15/21 04:40 Platelet Estimate NORMAL (130-450,000) (NORMAL) 03/15/21 04:40 Platelet Morphology NORMAL APPEARANCE (NORMAL) 03/15/21 04:40 RBC Morph Micro Appear 1+ AURELIA CELLS (NORMAL) 03/15/21 04:40 PT 17.7 secs (9.9-12.6) H 03/12/21 13:10 INR 1.6 (0.8-1.2) H 03/12/21 13:10 VBG pH 7.398 (7.31-7.41) 03/15/21 04:40 Ionized Calcium 1.11 mmol/L (1.15-1.33) L 03/15/21 04:40 Sodium 152 mmol/L (135-145) H 03/15/21 04:40 Potassium 3.1 mmol/L (3.5-5.0) L 03/15/21 04:40 Chloride 123 mmol/L (101-111) H* 03/15/21 04:40 Carbon Dioxide 19 mmol/L (21-32) L 03/15/21 04:40 Anion Gap 10.0 (6-13) 03/15/21 04:40 BUN 43 mg/dL (6-20) H 03/15/21 04:40 Creatinine 1.0 mg/dL (0.4-1.0) 03/15/21 04:40 Estimated GFR (MDRD) 53 (>89) L 03/15/21 04:40 Glucose 175 mg/dL (70-100) H 03/15/21 04:40 POC Whole Bld Glucose 135 mg/dL (70 - 100) H 03/15/21 11:49 Lactic Acid 1.5 mmol/L (0.5-2.2) 03/15/21 04:40 Calcium 7.8 mg/dL (8.5-10.3) L 03/15/21 04:40 Phosphorus 2.5 mg/dL (2.5-4.6) 03/15/21 04:40 Magnesium 1.9 mg/dL (1.7-2.8) 03/15/21 04:40 Total Bilirubin 0.8 mg/dL (0.2-1.0) 03/12/21 11:31 AST 36 IU/L (10-42) 03/12/21 11:31 ALT < 10 IU/L (10-60) L 03/12/21 11:31 Alkaline Phosphatase 112 IU/L (42-121) 03/12/21 11:31 Total Creatine Kinase 12 IU/L (22-269) L 03/12/21 15:08 Troponin I High Sens 63.9 ng/L (2.3-14.8) H* 03/12/21 15:08 B-Natriuretic Peptide 230 pg/mL (5-100) H 03/12/21 11:31 Total Protein 7.6 g/dL (6.7-8.2) 03/12/21 11:31 Albumin 3.7 g/dL (3.2-5.5) 03/12/21 11:31 Globulin 3.9 g/dL (2.1-4.2) 03/12/21 11:31 Albumin/Globulin Ratio 0.9 (1.0-2.2) L 03/12/21 11:31 Lipase 40 U/L (22-51) 03/12/21 11:31 Urine Color BROWN 03/12/21 22:48 Urine Clarity CLOUDY (CLEAR) 03/12/21 22:48 Urine pH 5.0 PH (5.0-7.5) 03/12/21 22:48 Ur Specific [place] 1.025 (1.002-1.030) 03/12/21 22:48 Urine Protein >=300 mg/dL (NEGATIVE) H 03/12/21 22:48 Urine Glucose (UA) NEGATIVE mg/dL (NEGATIVE) 03/12/21 22:48 Urine Ketones NEGATIVE mg/dL (NEGATIVE) 03/12/21 22:48 Urine Occult Blood LARGE (NEGATIVE) H 03/12/21 22:48 Urine Nitrite POSITIVE (NEGATIVE) H 03/12/21 22:48 Urine Bilirubin NEGATIVE (NEGATIVE) 03/12/21 22:48 Urine Urobilinogen 0.2 (NORMAL) E.U./dL (NORMAL) 03/12/21 22:48 Ur Leukocyte Esterase MODERATE (NEGATIVE) H 03/12/21 22:48 Urine RBC 11-25 /HPF (0-5) H 03/12/21 22:48 Urine WBC 6-10 /HPF (0-5) H 03/12/21 22:48 Ur Squamous Epith Cells NONE SEEN (<= Few) 03/12/21 22:48 Urine Bacteria Many /HPF (None Seen) H 03/12/21 22:48 Ur Microscopic Review INDICATED 03/12/21 22:48 Urine Culture Comments INDICATED 03/12/21 22:48 Nasal Adenovirus (PCR) NOT DETECTED 03/12/21 14:27 Nasal B. parapertussis DNA (PCR) NOT DETECTED 03/12/21 14:27 Nasal Coronavir 229E PCR NOT DETECTED 03/12/21 14:27 Nasal Coronavir HKU1 PCR NOT DETECTED 03/12/21 14:27 Nasal Coronavir NL63 PCR NOT DETECTED 03/12/21 14:27 Nasal Coronavir OC43 PCR NOT DETECTED 03/12/21 14:27 Nasal Enterovir/Rhinovir PCR NOT DETECTED 03/12/21 14:27 Nasal Influenza B PCR NOT DETECTED 03/12/21 14:27 Nasal Influenza A PCR NOT DETECTED 03/12/21 14:27 Nasal Parainfluen 1 PCR NOT DETECTED 03/12/21 14:27 Nasal Parainfluen 2 PCR NOT DETECTED 03/12/21 14:27 Nasal Parainfluen 3 PCR NOT DETECTED 03/12/21 14:27 Nasal Parainfluen 4 PCR NOT DETECTED 03/12/21 14:27 Nasal RSV (PCR) NOT DETECTED 03/12/21 14:27 Nasal Screen MRSA (PCR) NEGATIVE (NEGATIVE) 03/12/21 14:15 Nasal B.pertussis DNA PCR NOT DETECTED 03/12/21 14:27 Nasal C.pneumoniae (PCR) NOT DETECTED 03/12/21 14:27 Brian Human Metapneumo PCR NOT DETECTED 03/12/21 14:27 Nasal M.pneumoniae (PCR) NOT DETECTED 03/12/21 14:27 Nasal SARS-CoV-2 (PCR) NOT DETECTED 03/12/21 14:27 - Procedures Procedures: Procedures EXCISION OF ASCENDING COLON, ENDO, DIAGN (07/05/16) EXCISION OF DESCENDING COLON, ENDO, DIAGN (07/05/16) EXCISION OF RECTUM, ENDO, DIAGN (07/05/16) EXCISION OF SIGMOID COLON, ENDO, DIAGN (07/05/16) EXCISION OF TRANSVERSE COLON, ENDO, DIAGN (07/05/16) Sepsis Event Note (H) - Evaluation Current Stage of Sepsis: Severe sepsis Possible source of Sepsis: positive: Genitourinary - Sepsis Criteria Sepsis Criteria: Recorded Heart Rate greater than 90 bpm, WBC count greater than 12,000 or less than 4000, VALIDATION MANAGER: altered consciousness (unrelated to primary neuro pathology), Renal: urine output less than 0.5ml/kg/hr for 2 hours or creatinine gr, Metabolic: lactate > 2 mmol/L
[2021-03-15] MEDS: DEXTROSE 5% 1,000 ML IV SCH (15:14)
--- NOTE | 2021-03-15 15:30 | XRAY Report ---
PROCEDURE: Chest for Line Placement INDICATIONS: ng tube placed TECHNIQUE: One view of the chest was acquired. COMPARISON: Chest x-ray 8 03/12/2021, CT abdomen pelvis 03/12/2021 FINDINGS: Surgical changes and devices: Nasogastric tube is present distal tip projecting below the left hemidi aphragm. Right PICC line is present with distal tip projecting over the midline of the lower thoracic spine. Partially visualized coiled catheter overlying the left hemiabdomen consistent with presence of prior nephrostomy tube. Lungs and pleura: Increased bibasilar/retrocardiac opacities compared to prior exam. Mediastinum: Me diastinal contours appear normal. Heart size is enlarged. Bones and chest wall: No suspicious bony lesions. Overlying soft tissues appear unremarkable. IMPRESSION: 1. Nasogastric tube as above. 2. Right-sided PICC line is present with distal tip as projecting above. While this is suspected to b e venous placement, a more midline appearance is present possibly secondary to patient rotation. Base d on current exam, arterial placement cannot be definitively excluded. In addition, if placement is i ndeed venous, it is felt to be likely centered within the right atrium. Recommend repeat view with pa tient in a nonrotated position is recommended as well as likely retraction approximately 7 cm. 3. Opacities within the bases and retrocardiac region bilaterally. Developing airspace disease should be considered. Reviewed by: Amee Yeager MD on 03/15/2021 3:29 PM PDT Approved by: Amee Yeager MD on 03/15/2021 3:29 PM PDT Station ID: [id number]
[2021-03-15 16:08] LABS: CALCIUM, IONIZED 1.14 mmol/L (1.15-1.33); VBG PH 7.423 (7.31-7.41)
[2021-03-15] MEDS ORDERED: metroNIDAZOLE 500 MG/100 ML 500 MG/100 ML BAG IV SCH (17:00)
[2021-03-15] MEDS: ATORVASTATIN 10 MG TABLET PO SCH (22:01)
[2021-03-15] MEDS: MIRTAZAPINE 15 MG TABLET PO SCH (22:02)
[2021-03-15] MEDS: VANCOMYCIN INJ 1 GM, VANCOMYCIN INJ 500 MG in SODIUM CHLORIDE 0.9% 500 ML IV SCH (22:02)
[2021-03-16] MEDS: PIPERACILLIN/TAZOBACTAM 3.375 GM in SODIUM CHLORIDE 0.9% MINIBAG 100 ML IV SCH ×3 (00:01→16:20)
[2021-03-16] MEDS: SODIUM CHLORIDE FLUSH 0.9% 10 ML SYRINGE IVP SCH ×3 (00:12→18:59)
[2021-03-16] MEDS: MIRTAZAPINE 15 MG TABLET PO SCH ×2 (00:19→20:52)
[2021-03-16] MEDS: ATORVASTATIN 10 MG TABLET PO SCH ×2 (00:19→20:53)
[2021-03-16] MEDS: DEXTROSE 5% 1,000 ML IV SCH ×2 (03:38→15:32)
[2021-03-16] MEDS: SODIUM CHLORIDE FLUSH 0.9% 10 ML SYRINGE IVP PRN ×4 (04:49→18:39)
[2021-03-16 05:05] LABS: BASOPHILS % (AUTO) 0.4 %; EOSINOPHILS % (AUTO) 0.8 %; HGB - HEMOGLOBIN 10.9 g/dL (12.0-16.0); LYMPHOCYTES % (AUTO) 7.9 %; MEAN CORPUSCULAR HEMOGLOBIN 27.5 pg (27.0-31.0); MEAN CORPUSCULAR HGB CONC 31.1 g/dL (32.0-36.0); MEAN CORPUSCULAR VOLUME 88.4 fL (81.0-99.0); MEAN PLATELET VOLUME 9.9 fL (7.9-10.8); MONOCYTES % (AUTO) 3.7 %; NEUTROPHILS % (AUTO) 85.9 %; PLT - PLATELET COUNT 135 10^3/uL (130-450); RED BLOOD COUNT 3.96 10^6/uL (4.20-5.40); RED CELL DISTRIBUTION WIDTH 18.4 % (12.0-15.0); WHITE BLOOD COUNT 27.4 x10^3/uL (4.8-10.8)
[2021-03-16 05:06] LABS: CALCIUM, IONIZED 1.11 mmol/L (1.15-1.33); VBG PH 7.405 (7.31-7.41)
[2021-03-16 05:16] LABS: ABNORMAL LYMPHS % (MANUAL) 0 %; BAND NEUTROPHILS % (MANUAL) 0 %; MAGNESIUM 1.7 mg/dL (1.7-2.8); PHOSPHORUS 1.5 mg/dL (2.5-4.6)
[2021-03-16 05:17] LABS: ALBUMIN/GLOBULIN RATIO 0.7 (1.0-2.2); BILIRUBIN,TOTAL 0.9 mg/dL (0.2-1.0); CALCIUM 7.4 mg/dL (8.5-10.3); CREATININE 0.8 mg/dL (0.4-1.0); POTASSIUM 3.1 mmol/L (3.5-5.0)
[2021-03-16 05:29] LABS: EOSINOPHILS # (MANUAL) 0.3 10^3/uL (0-0.7); LYMPHOCYTES # (MANUAL) 2.7 10^3/uL (1.5-3.5); LYMPHOCYTES % (MANUAL) 10 %; MONOCYTES # (MANUAL) 0.3 10^3/uL (0.0-1.0); NEUTROPHILS # (MANUAL) 24.1 10^3/uL (1.5-6.6); PLATELET ESTIMATE, MANUAL NORMAL (130-450,000) (NORMAL); PLATELET MORPHOLOGY NORMAL APPEARANCE (NORMAL); RBC MORPHOLOGY (MULTIPLE) 1+ BURR CELLS (NORMAL); WBC MORPHOLOGY (MULTIPLE) NORMAL APPEARANCE (NORMAL)
[2021-03-16 05:30] LABS: DIFFERENTIAL COMMENT MANUAL DIFFERENTIAL
[2021-03-16] MEDS ORDERED: MAGNESIUM SULFATE 2 GRAM 2 GM/50 ML BAG IV ONE (06:00)
[2021-03-16] MEDS: POTASSIUM CHLORIDE 20 MEQ/15 ML UDC PO SCH ×2 (06:39→08:32)
[2021-03-16] MEDS: METOPROLOL 5 MG/5 ML VIAL IVP SCH ×3 (06:39→18:27)
[2021-03-16] MEDS: CALCIUM GLUCONATE 1,000 MG in SODIUM CHLORIDE 0.9% 50 ML IV ONE ×2 (06:44→10:18)
[2021-03-16] MEDS ORDERED: POTASSIUM PHOSPHATE 21 MMOL in SODIUM CHLORIDE 0.9% 250 ML IV ONE (08:00)
--- NOTE | 2021-03-16 08:05 | XRAY Report ---
PROCEDURE: Chest 1 View X-Ray INDICATIONS: NGT placement TECHNIQUE: One view of the chest was acquired. COMPARISON: Chest x-ray 03/15/2021 FINDINGS: Surgical changes and devices: Right PICC line placement is unchanged, previously noting midline posit ion and inability to confirm venous placement via radiograph. If venous, is projecting over the right atrium. As a gastric tube is present with distal tip projecting below the left hemidiaphragm. Partia lly visualized left ureterovesicular stent is noted. Lungs and pleura: Unchanged appearance of prominent left basilar and retrocardiac opacities, with les s prominent right basilar opacity. Mediastinum: Mediastinal contours appear normal. Heart size is normal. Bones and chest wall: No suspicious bony lesions. Overlying soft tissues appear unremarkable. IMPRESSION: 1. Stable appearance of retrocardiac and basilar opacities. 2. Support lines as above, again noting placement of right PICC line. Recommend clinical confirmation of venous placement for CT if further confirmation is needed. Distal tip overlies the region of the right atrium. The above findings are concordant with preliminary report. Reviewed by: Amee Yeager MD on 03/16/2021 8:04 AM PDT Approved by: Amee Yeager MD on 03/16/2021 8:04 AM PDT Station ID: [id number]
[2021-03-16] MEDS: HEPARIN 5,000 UNIT/ML VIAL SUBQ SCH ×2 (08:36→20:53)
[2021-03-16] MEDS: ZINC OXIDE 20% OINT 30 GM TUBE TOP PRN (10:54)
[2021-03-16] MEDS: polyethylene glycoL 3350 17 GM PACKET PO SCH (11:01)
[2021-03-16] MEDS: ASPIRIN CHEW 81 MG TABLET PO SCH (11:01)
--- NOTE | 2021-03-16 12:26 | CT Report ---
PROCEDURE: HEAD WO INDICATIONS: Altered mental status TECHNIQUE: Noncontrast 4.5 mm thick angled axial sections acquired from the foramen magnum to the vertex. For r adiation dose reduction, the following was used: automated exposure control, adjustment of mA and/or kV according to patient size. COMPARISON: 12/02/2020 FINDINGS: Image quality: There is streak artifact seen through the skull base. CSF spaces: Basal cisterns are patent. No extra-axial fluid collections. Ventricles are stable, wi th ex vacuo dilatation seen involving the left lateral ventricle. Brain: There is a remote infarction seen involving the deep white matter of the left frontal lobe an d the left basal ganglia. No midline shift. No intracranial masses or hemorrhage. Villegas-white matter interface is normal. Skull and face: Calvarium and visualized facial bones are intact, without suspicious lesions. Sinuses: Visualized sinuses and mastoids are clear. IMPRESSION: No acute intracranial abnormality is seen. Stable, remote left frontal lobe infarction with involvement of the left basal ganglia, with associat ed volume loss and ex vacuo dilatation of the left lateral ventricle. Reviewed by: Abner Zhang MD on 03/16/2021 11:24 AM JONATAN Approved by: Abner Zhang MD on 03/16/2021 11:24 AM JONATAN Station ID: [id number]
[2021-03-16 12:42] LABS: MAGNESIUM 2.3 mg/dL (1.7-2.8); POTASSIUM 3.2 mmol/L (3.5-5.0)
[2021-03-16 13:32] LABS: CALCIUM, IONIZED 1.16 mmol/L (1.15-1.33); VBG PH 7.382 (7.31-7.41)
--- NOTE | 2021-03-16 15:09 | PROVIDER PROGRESS NOTE ---
Assessment/Plan - Problem List (1) Encephalopathy Assessment/Plan: She has been somnolent for several days after admission, was communicative at presentation CT head was therefore done and it showed an old stroke and volume loss and no other findings. Suspect her worsened obtundation is from new infection and from hypotension. Since her WBC is improving after broadening antibx several days ago, we will not request an LP. Continue present antibx and fluids. Since she has not had any signif nutrition since admission, will begin ng feeds (2) Severe sepsis Assessment/Plan: Her WBC has been very elevated: 29 to 33 to 31 and has started to decline since antibx were broadened. A source was searched for: Her Abd imaging was done at admission. She has no pulm sx. Her sacrum does have several decubiti. Her blood cx are neg to date. Levophed was added to maintain MAP of 65 mmHg minimum, and has been on and off Follow CBC daily (3) GALLO (acute kidney injury) Assessment/Plan: She has slow, daily improvement in her creatinine. Continue with IV hydration while she is not taking in adequate fluids. Avoid nephrotoxins. Follow BMP daily (4) Atrial fibrillation with rapid ventricular response Assessment/Plan: Heart rate is acceptable with present meds however her blood pressure is soft. (5) Staghorn calculus Assessment/Plan: Was found on imaging at the time of admission, it is not causing obstruction. (6) Hypokalemia Assessment/Plan: Replace with K riders. Follow BMP daily (7) History of stroke with residual deficit Assessment/Plan: R side affected plus some dementia (8) Metabolic acidosis Assessment/Plan: Resolving (9) Hypoglycemia Assessment/Plan: Resolved, ever since D5 was added to her IV drips and now getting ng feeds. (10) Hyperkalemia Assessment/Plan: Resolved (11) Hypernatremia Assessment/Plan: Resolved with a day of D5W iv and stopping NS iv, and adding water to her ng fee ds orders (12) UTI (urinary tract infection) Qualifiers: Urinary tract infection type: site unspecified Assessment/Plan: Ruled out with urine cx growing polymicrobial sidney A new U/A was sent to recheck for a UTI, due to persistent hypotension and elevated WBC - Current Meds Current Meds: Current Medications Generic Name Dose Route Start Last Admin Trade Name Freq PRN Reason Stop Dose Admin Aspirin 81 mg 03/16/21 09:00 03/16/21 11:01 Aspirin Chew 81 Mg Tablet PO 81 mg DAILY AVELINO Administration Atorvastatin Calcium 20 mg 03/13/21 21:00 03/16/21 00:19 Atorvastatin 10 Mg Tablet PO Not Given QPM AVELINO Heparin Sodium (Porcine) 5,000 unit 03/12/21 21:00 03/16/21 08:36 Heparin 5,000 Unit/Ml Vial SUBQ 5,000 unit BID AVELINO Administration Piperacillin Sod/Tazobactam 100 mls @ 25 mls/hr 03/14/21 08:00 03/16/21 12:38 Sod 3.375 gm/ Sodium Chloride IV Infused Q8H AVELINO Infusion Norepinephrine Bitartrate 8 mg 250 mls @ 15 mls/hr 03/15/21 02:00 03/16/21 14:09 / Dextrose IV 4 mcg/min .[id number] AVELINO 7.5 mls/hr Titration Protocol 8 MCG/MIN Vancomycin HCl 1 gm/ 500 mls @ 250 mls/hr 03/15/21 22:00 03/16/21 01:09 Vancomycin HCl 500 mg/ Sodium IV Infused Chloride Q36H AVELINO Infusion Dextrose 1,000 mls @ 83.333 mls/hr 03/15/21 14:00 03/16/21 13:37 D5w IV 83.3 mls/hr .Q12H AVELINO Infusion Metoprolol Tartrate 5 mg 03/13/21 10:23 03/16/21 12:39 Metoprolol 5 Mg/5 Ml Vial IVP 5 mg Q6HR AVELINO Administration Mirtazapine 7.5 mg 03/13/21 21:00 03/16/21 00:19 Mirtazapine 15 Mg Tablet PO Not Given QPM [facility] Multi-Ingredient Ointment 1 applic 03/13/21 10:42 03/16/21 10:54 Zinc Oxide 20% Oint 30 Gm Tube TOP 1 applic PRN PRN Administration Skin Care Polyethylene Glycol 17 gm 03/13/21 12:00 03/16/21 11:01 Polyethylene Glycol 3350 17 Gm Packet PO Not Given DAILY AVELINO Sodium Chloride 10 ml 03/12/21 17:00 03/16/21 11:01 Sodium Chloride Flush 0.9% 10 Ml Syringe IVP Not Given 0100,0900,1700 AVELINO Sodium Chloride 10 ml 03/12/21 12:26 03/16/21 12:27 Sodium Chloride Flush 0.9% 10 Ml Syringe IVP 30 ml PRN PRN Administration NEEDED PER PROVIDER ORDERS - Lab Result Fish Bone Diagrams: 03/18/21 06:00 03/18/21 06:00 - Additional Planning My Orders: My Active Orders 03/15/21 15:25 NPO [DIET] 03/15/21 15:26 Daily Weight [RC] DAILY Tube Feeding [] [facility] 03/15/21 16:35 Miscellaenous Nursing Order [] [facility] 03/15/21 22:00 Vancomycin Inj [Vancomycin] 1 gm Vancomycin Inj [Vancomycin Hcl] 500 mg Sodium Chloride 0.9% [Normal Saline 0.9%] 500 ml IV Q36H 03/16/21 09:00 Aspirin Chewable [[facility] Aspirin] 81 mg PO DAILY 03/16/21 12:32 Miscellaenous Nursing Order [] [facility] 03/18/21 05:00 COMPREHENSIVE METABOLIC PANEL [CHEM] Timed MAGNESIUM [CHEM] Timed PHOSPHORUS [CHEM] Timed PREALBUMIN [CHEM] Timed 03/21/21 05:00 COMPREHENSIVE METABOLIC PANEL [CHEM] Timed MAGNESIUM [CHEM] Timed PHOSPHORUS [CHEM] Timed PREALBUMIN [CHEM] Timed Subjective - Subjective Patient Reports: Other (Somnilent, awakens to sternal rub, and opens eyes briefly to name) Objective Vital Signs: Vital Signs - 24 hr 03/15/21 03/15/21 03/15/21 16:00 17:00 17:30 Temperature 37.3 C Heart Rate [ 112 H 120 H 117 H Monitoring electrodes] Respiratory 20 21 20 Rate Blood Pressure Blood Pressure 116/82 H 118/73 120/53 L [Left Brachial artery] O2 Saturation 94 95 93 03/15/21 03/15/21 03/15/21 17:35 17:40 17:45 Temperature Heart Rate [ 112 H 100 98 Monitoring electrodes] Respiratory 21 20 20 Rate Blood Pressure 104/72 Blood Pressure 115/58 L 112/91 H 95/66 [Left Brachial artery] O2 Saturation 94 95 94 03/15/21 03/15/21 03/15/21 18:00 19:00 20:00 Temperature Heart Rate [ 100 100 103 H Monitoring electrodes] Respiratory 19 20 20 Rate Blood Pressure Blood Pressure 115/54 L 117/62 121/78 [Left Brachial artery] O2 Saturation 95 95 95 03/15/21 03/15/21 03/15/21 21:00 22:00 23:00 Temperature 37.6 C Heart Rate [ 110 H 114 H 105 H Monitoring electrodes] Respiratory 20 22 20 Rate Blood Pressure Blood Pressure 114/68 114/65 122/62 [Left Brachial artery] O2 Saturation 95 95 95 03/15/21 03/16/21 03/16/21 23:53 00:00 01:00 Temperature 37.3 C Heart Rate [ 114 H 106 H Monitoring electrodes] Respiratory 20 20 Rate Blood Pressure 128/90 H Blood Pressure 123/82 H 104/60 [Left Brachial artery] O2 Saturation 95 95 03/16/21 03/16/21 03/16/21 02:00 03:00 04:00 Temperature 37.3 C Heart Rate [ 108 H 98 135 H Monitoring electrodes] Respiratory 20 19 20 Rate Blood Pressure Blood Pressure 122/62 112/67 112/91 H [Left Brachial artery] O2 Saturation 96 94 95 03/16/21 03/16/21 03/16/21 05:00 06:00 06:39 Temperature 37.1 C Heart Rate [ 119 H 114 H Monitoring electrodes] Respiratory 19 19 Rate Blood Pressure 127/64 Blood Pressure 128/65 111/75 [Left Brachial artery] O2 Saturation 97 97 03/16/21 03/16/21 03/16/21 07:00 08:00 09:00 Temperature 37.1 C 37.1 C Heart Rate [ 117 H 116 H 113 H Monitoring electrodes] Respiratory 16 20 19 Rate Blood Pressure Blood Pressure 116/68 105/63 92/63 [Left Brachial artery] O2 Saturation 95 93 96 03/16/21 03/16/21 03/16/21 10:00 11:00 12:00 Temperature 37 C 37 C Heart Rate [ 120 H 118 H 110 H Monitoring electrodes] Respiratory 18 19 17 Rate Blood Pressure Blood Pressure 108/53 L 104/62 103/71 [Left Brachial artery] O2 Saturation 96 97 97 03/16/21 03/16/21 03/16/21 12:39 13:00 14:00 Temperature 37 C Heart Rate [ 108 H 109 H Monitoring electrodes] Respiratory 17 17 Rate Blood Pressure 111/60 Blood Pressure 118/71 114/76 [Left Brachial artery] O2 Saturation 96 98 Oxygen O2 Source Room air Oxygen Flow Rate 2 I&O (Last 24 Hrs): Intake and Output Totals x24h 03/14/21 03/15/21 03/16/21 23:59 23:59 23:59 Intake Total 2903.577 2420.167 3757.861 Output Total 892 1365 970 Balance 577 7341.549 2634.861 General: Other (Asleep, awakens) HEENT: Mucous membr. moist/pink, Other (eyelids crusted) Neuro: Other (lethargic, R hand contractures) Cardiovascular: No murmurs Respiratory: No respiratory distress, Breath sounds nml Abdomen: Normal bowel sounds, Soft Extremities: No edema - Results Results: Laboratory Results WBC 27.4 x10^3/uL (4.8-10.8) H 03/16/21 04:45 RBC 3.96 10^6/uL (4.20-5.40) L 03/16/21 04:45 Hgb 10.9 g/dL (12.0-16.0) L 03/16/21 04:45 Hct 35.0 % (37.0-47.0) L 03/16/21 04:45 MCV 88.4 fL (81.0-99.0) 03/16/21 04:45 MCH 27.5 pg (27.0-31.0) 03/16/21 04:45 MCHC 31.1 g/dL (32.0-36.0) L 03/16/21 04:45 RDW 18.4 % (12.0-15.0) H 03/16/21 04:45 Plt Count 135 10^3/uL (130-450) 03/16/21 04:45 MPV 9.9 fL (7.9-10.8) 03/16/21 04:45 Neut # (Auto) Not Reportable 03/16/21 04:45 Lymph # (Auto) Not Reportable 03/16/21 04:45 [place] # (Auto) Not Reportable 03/16/21 04:45 Eos # (Auto) Not Reportable 03/16/21 04:45 Baso # (Auto) Not Reportable 03/16/21 04:45 Absolute Nucleated RBC Not Reportable 03/16/21 04:45 Total Counted 100 03/16/21 04:45 Band Neuts % (Manual) 0 % (0-10) 03/16/21 04:45 Abnorm Lymph % (Manual) 0 % 03/16/21 04:45 Nucleated RBC % Not Reportable 03/16/21 04:45 Neutrophils # (Manual) 24.1 10^3/uL (1.5-6.6) H 03/16/21 04:45 Lymphocytes # (Manual) 2.7 10^3/uL (1.5-3.5) 03/16/21 04:45 Monocytes # (Manual) 0.3 10^3/uL (0.0-1.0) 03/16/21 04:45 Eosinophils # (Manual) 0.3 10^3/uL (0-0.7) 03/16/21 04:45 Basophils # (Manual) 0.0 10^3/uL (0-0.1) 03/16/21 04:45 Differential Comment MANUAL DIFFERENTIAL 03/16/21 04:45 Manual Slide Review Indicated 03/12/21 10:38 WBC Morphology NORMAL APPEARANCE (NORMAL) 03/16/21 04:45 Platelet Estimate NORMAL (130-450,000) (NORMAL) 03/16/21 04:45 Platelet Morphology NORMAL APPEARANCE (NORMAL) 03/16/21 04:45 RBC Morph Micro Appear 1+ AURELIA CELLS (NORMAL) 03/16/21 04:45 PT 17.7 secs (9.9-12.6) H 03/12/21 13:10 INR 1.6 (0.8-1.2) H 03/12/21 13:10 VBG pH 7.382 (7.31-7.41) 03/16/21 13:15 Ionized Calcium 1.16 mmol/L (1.15-1.33) 03/16/21 13:15 Sodium 145 mmol/L (135-145) 03/16/21 04:45 Potassium 3.2 mmol/L (3.5-5.0) L 03/16/21 12:28 Chloride 118 mmol/L (101-111) H 03/16/21 04:45 Carbon Dioxide 17 mmol/L (21-32) L 03/16/21 04:45 Anion Gap 10.0 (6-13) 03/16/21 04:45 BUN 27 mg/dL (6-20) H 03/16/21 04:45 Creatinine 0.8 mg/dL (0.4-1.0) 03/16/21 04:45 Estimated GFR (MDRD) 68 (>89) L 03/16/21 04:45 Glucose 174 mg/dL (70-100) H 03/16/21 04:45 POC Whole Bld Glucose 146 mg/dL (70 - 100) H 03/16/21 12:37 Lactic Acid 1.5 mmol/L (0.5-2.2) 03/15/21 04:40 Calcium 7.4 mg/dL (8.5-10.3) L 03/16/21 04:45 Phosphorus 1.5 mg/dL (2.5-4.6) L 03/16/21 04:45 Magnesium 2.3 mg/dL (1.7-2.8) 03/16/21 12:28 Total Bilirubin 0.9 mg/dL (0.2-1.0) 03/16/21 04:45 AST 40 IU/L (10-42) 03/16/21 04:45 ALT 39 IU/L (10-60) 03/16/21 04:45 Alkaline Phosphatase 119 IU/L (42-121) 03/16/21 04:45 Total Creatine Kinase 12 IU/L (22-269) L 03/12/21 15:08 Troponin I High Sens 63.9 ng/L (2.3-14.8) H* 03/12/21 15:08 B-Natriuretic Peptide 230 pg/mL (5-100) H 03/12/21 11:31 Total Protein 5.0 g/dL (6.7-8.2) L 03/16/21 04:45 Albumin 2.0 g/dL (3.2-5.5) L 03/16/21 04:45 Globulin 3.0 g/dL (2.1-4.2) 03/16/21 04:45 Albumin/Globulin Ratio 0.7 (1.0-2.2) L 03/16/21 04:45 Prealbumin 3 mg/dL (18-45) L 03/16/21 04:45 Lipase 40 U/L (22-51) 03/12/21 11:31 Urine Color BROWN 03/12/21 22:48 Urine Clarity CLOUDY (CLEAR) 03/12/21 22:48 Urine pH 5.0 PH (5.0-7.5) 03/12/21 22:48 Ur Specific [place] 1.025 (1.002-1.030) 03/12/21 22:48 Urine Protein >=300 mg/dL (NEGATIVE) H 03/12/21 22:48 Urine Glucose (UA) NEGATIVE mg/dL (NEGATIVE) 03/12/21 22:48 Urine Ketones NEGATIVE mg/dL (NEGATIVE) 03/12/21 22:48 Urine Occult Blood LARGE (NEGATIVE) H 03/12/21 22:48 Urine Nitrite POSITIVE (NEGATIVE) H 03/12/21 22:48 Urine Bilirubin NEGATIVE (NEGATIVE) 03/12/21 22:48 Urine Urobilinogen 0.2 (NORMAL) E.U./dL (NORMAL) 03/12/21 22:48 Ur Leukocyte Esterase MODERATE (NEGATIVE) H 03/12/21 22:48 Urine RBC 11-25 /HPF (0-5) H 03/12/21 22:48 Urine WBC 6-10 /HPF (0-5) H 03/12/21 22:48 Ur Squamous Epith Cells NONE SEEN (<= Few) 03/12/21 22:48 Urine Bacteria Many /HPF (None Seen) H 03/12/21 22:48 Ur Microscopic Review INDICATED 03/12/21 22:48 Urine Culture Comments INDICATED 03/12/21 22:48 Nasal Adenovirus (PCR) NOT DETECTED 03/12/21 14:27 Nasal B. parapertussis DNA (PCR) NOT DETECTED 03/12/21 14:27 Nasal Coronavir 229E PCR NOT DETECTED 03/12/21 14:27 Nasal Coronavir HKU1 PCR NOT DETECTED 03/12/21 14:27 Nasal Coronavir NL63 PCR NOT DETECTED 03/12/21 14:27 Nasal Coronavir OC43 PCR NOT DETECTED 03/12/21 14:27 Nasal Enterovir/Rhinovir PCR NOT DETECTED 03/12/21 14:27 Nasal Influenza B PCR NOT DETECTED 03/12/21 14:27 Nasal Influenza A PCR NOT DETECTED 03/12/21 14:27 Nasal Parainfluen 1 PCR NOT DETECTED 03/12/21 14:27 Nasal Parainfluen 2 PCR NOT DETECTED 03/12/21 14:27 Nasal Parainfluen 3 PCR NOT DETECTED 03/12/21 14:27 Nasal Parainfluen 4 PCR NOT DETECTED 03/12/21 14:27 Nasal RSV (PCR) NOT DETECTED 03/12/21 14:27 Nasal Screen MRSA (PCR) NEGATIVE (NEGATIVE) 03/12/21 14:15 Nasal B.pertussis DNA PCR NOT DETECTED 03/12/21 14:27 Nasal C.pneumoniae (PCR) NOT DETECTED 03/12/21 14:27 Brian Human Metapneumo PCR NOT DETECTED 03/12/21 14:27 Nasal M.pneumoniae (PCR) NOT DETECTED 03/12/21 14:27 Nasal SARS-CoV-2 (PCR) NOT DETECTED 03/12/21 14:27 - Procedures Procedures: Procedures EXCISION OF ASCENDING COLON, ENDO, DIAGN (07/05/16) EXCISION OF DESCENDING COLON, ENDO, DIAGN (07/05/16) EXCISION OF RECTUM, ENDO, DIAGN (07/05/16) EXCISION OF SIGMOID COLON, ENDO, DIAGN (07/05/16) EXCISION OF TRANSVERSE COLON, ENDO, DIAGN (07/05/16) Sepsis Event Note (H) - Evaluation Current Stage of Sepsis: Severe sepsis Possible source of Sepsis: positive: Genitourinary - Sepsis Criteria Sepsis Criteria: Recorded Heart Rate greater than 90 bpm, WBC count greater than 12,000 or less than 4000, AUDIOLOGY DIRECTOR: altered consciousness (unrelated to primary neuro pathology), Renal: urine output less than 0.5ml/kg/hr for 2 hours or creatinine gr, Metabolic: lactate > 2 mmol/L
[2021-03-17] MEDS: PIPERACILLIN/TAZOBACTAM 3.375 GM in SODIUM CHLORIDE 0.9% MINIBAG 100 ML IV SCH ×3 (00:24→15:11)
[2021-03-17] MEDS: METOPROLOL 5 MG/5 ML VIAL IVP SCH ×2 (00:48→06:42)
[2021-03-17] MEDS: DEXTROSE 5% 1,000 ML IV SCH (03:35)
[2021-03-17 05:42] LABS: BASOPHILS % (AUTO) 0.3 %; EOSINOPHILS % (AUTO) 2.7 %; HCT - HEMATOCRIT 33.3 % (37.0-47.0); HGB - HEMOGLOBIN 10.5 g/dL (12.0-16.0); LYMPHOCYTES % (AUTO) 9.4 %; MEAN CORPUSCULAR HEMOGLOBIN 27.7 pg (27.0-31.0); MEAN CORPUSCULAR HGB CONC 31.5 g/dL (32.0-36.0); MEAN CORPUSCULAR VOLUME 87.9 fL (81.0-99.0); MEAN PLATELET VOLUME 10.5 fL (7.9-10.8); NEUTROPHILS % (AUTO) 82.5 %; PLT - PLATELET COUNT 150 10^3/uL (130-450); RED BLOOD COUNT 3.79 10^6/uL (4.20-5.40); RED CELL DISTRIBUTION WIDTH 18.2 % (12.0-15.0)
[2021-03-17 05:51] LABS: CALCIUM 7.3 mg/dL (8.5-10.3); CREATININE 0.6 mg/dL (0.4-1.0); PHOSPHORUS 2.2 mg/dL (2.5-4.6); POTASSIUM 3.1 mmol/L (3.5-5.0)
[2021-03-17 05:58] LABS: ABNORMAL LYMPHS % (MANUAL) 0 %; BAND NEUTROPHILS % (MANUAL) 0 %
[2021-03-17] MEDS ORDERED: SODIUM PHOSPHATE 15 MMOL in SODIUM CHLORIDE 0.9% 250 ML IV ONE (06:10)
[2021-03-17 06:23] LABS: EOSINOPHILS # (MANUAL) 0.5 10^3/uL (0-0.7); LYMPHOCYTES % (MANUAL) 13 %; MONOCYTES # (MANUAL) 0.7 10^3/uL (0.0-1.0); NEUTROPHILS # (MANUAL) 18.9 10^3/uL (1.5-6.6)
[2021-03-17 06:24] LABS: DIFFERENTIAL COMMENT MANUAL DIFFERENTIAL; PLATELET ESTIMATE, MANUAL NORMAL (130-450,000) (NORMAL); PLATELET MORPHOLOGY NORMAL APPEARANCE (NORMAL); RBC MORPHOLOGY (MULTIPLE) 1+ BURR CELLS (NORMAL); WBC MORPHOLOGY (MULTIPLE) NORMAL APPEARANCE (NORMAL)
[2021-03-17] MEDS: SODIUM CHLORIDE FLUSH 0.9% 10 ML SYRINGE IVP SCH ×4 (06:40→21:23)
[2021-03-17] MEDS: NEUTRA-PHOS 250 MG TABLET PO SCH ×2 (07:02→08:48)
--- NOTE | 2021-03-17 08:03 | PROVIDER PROGRESS NOTE ---
Assessment/Plan - Problem List (1) Severe sepsis Assessment/Plan: She was weaned off iv Levophed overnight, then it needed to be restarted. WBC slowly decreasing, is 23 today. Continue trying to wean iv Levophed to off keeping syst BP greater than 90 The U/A grew polymicrobial sidney, so probably a contaminant/bacteriuria and not a UTI, her source may be the sacral decubitus therefore Continue empiric iv Vanco and Zosyn Follow CBC w/ diff daily (2) Atrial fibrillation with rapid ventricular response Assessment/Plan: Her Afib rate was controlled the past 2 days, today HR increased again, up to 135-170 in Afib. Possibly from being more awake and being on Levophed Will continue with meds for HR control, however we are limited due to low BP Continue Dig daily Follow Dig level (3) Sacral decubitus ulcer Assessment/Plan: This may be her infectious source When iv VAnco was started, her WBC started to improve Continue topical dressing changes and nursing care, change positions in bed (4) Encephalopathy Assessment/Plan: She remains lethargic (5) Hypernatremia Assessment/Plan: Resolved. Will stop iv D5W at 83/hr and start D5NS w/ 20mEq KCL Continue ng feed with free water per ng also Follow BMP daily (6) Staghorn calculus Assessment/Plan: This was seen on imaging at the time of admission and it is not causing obstruction (7) Hypokalemia Assessment/Plan: Replace with K riders. Follow BMP daily (8) History of stroke with residual deficit Assessment/Plan: As per history. (9) Metabolic acidosis Assessment/Plan: Improving with better serum CO2 daily on BMP (10) Hypoglycemia Assessment/Plan: Solved with D5 in her IV and also getting NG tube feeds the last 2 days (11) UTI (urinary tract infection) Qualifiers: Urinary tract infection type: site unspecified Assessment/Plan: The U/A grew polymicrobial sidney, so probably a contaminant/bacteriuria and not a UTI Her source may be the sacral decubitus therefore (12) GALLO (acute kidney injury) Assessment/Plan: Resolved with normal ratio, after several days of iv saline Watch BMP daily (13) Hyperkalemia Assessment/Plan: Resolved - Current Meds Current Meds: Current Medications Generic Name Dose Route Start Last Admin Trade Name Freq PRN Reason Stop Dose Admin Aspirin 81 mg 03/16/21 09:00 03/16/21 11:01 Aspirin Chew 81 Mg Tablet PO 81 mg DAILY AVELINO Administration Atorvastatin Calcium 20 mg 03/13/21 21:00 03/16/21 20:53 Atorvastatin 10 Mg Tablet PO 20 mg QPM AVELINO Administration Heparin Sodium (Porcine) 5,000 unit 03/12/21 21:00 03/16/21 20:53 Heparin 5,000 Unit/Ml Vial SUBQ 5,000 unit BID AVELINO Administration Piperacillin Sod/Tazobactam 100 mls @ 25 mls/hr 03/14/21 08:00 03/17/21 02:00 Sod 3.375 gm/ Sodium Chloride IV 0 mls/hr Q8H AVELINO Infusion Vancomycin HCl 1 gm/ 500 mls @ 250 mls/hr 03/15/21 22:00 03/16/21 01:09 Vancomycin HCl 500 mg/ Sodium IV Infused Chloride Q36H AVELINO Infusion Dextrose 1,000 mls @ 83.333 mls/hr 03/15/21 14:00 03/17/21 03:35 D5w IV 83.3 mls/hr .Q12H AVELINO Administration Metoprolol Tartrate 5 mg 03/13/21 10:23 03/17/21 06:42 Metoprolol 5 Mg/5 Ml Vial IVP 5 mg Q6HR AVELINO Administration Mirtazapine 7.5 mg 03/13/21 21:00 03/16/21 20:52 Mirtazapine 15 Mg Tablet PO 7.5 mg QPM AVELINO Administration Multi-Ingredient Ointment 1 applic 03/13/21 10:42 03/16/21 10:54 Zinc Oxide 20% Oint 30 Gm Tube TOP 1 applic PRN PRN Administration Skin Care Polyethylene Glycol 17 gm 03/13/21 12:00 03/16/21 11:01 Polyethylene Glycol 3350 17 Gm Packet PO Not Given DAILY AVELINO Sodium Chloride 10 ml 03/12/21 17:00 03/17/21 06:40 Sodium Chloride Flush 0.9% 10 Ml Syringe IVP 10 ml 0100,0900,1700 AVELINO Administration Sodium Chloride 10 ml 03/12/21 12:26 03/16/21 18:39 Sodium Chloride Flush 0.9% 10 Ml Syringe IVP 30 ml PRN PRN Administration NEEDED PER PROVIDER ORDERS Sodium Phosphate 250 mg 03/17/21 07:00 03/17/21 07:02 Neutra-Phos 250 Mg Tablet PO 03/17/21 09:01 250 mg Q2H AVELINO Administration Protocol - Lab Result Fish Bone Diagrams: 03/17/21 05:10 03/17/21 05:10 - EKG Results EKG Interpreted Independently: Yes EKG Comparison: Changed from prior EKG EKG Findings: Afib, ventr. rate 140, RBBB, inf Q waves. Since EKG from 03/12/21, rate is slightly slower, otherwise similar. - Additional Planning My Orders: My Active Orders 03/16/21 09:00 Aspirin Chewable [St Pj Aspirin] 81 mg PO DAILY 03/16/21 12:32 Miscellaenous Nursing Order [RC] QSHIFT 03/17/21 07:00 Neutra-Phos [K-Phos Neutral] 250 mg PO Q2H 03/17/21 07:58 Transfer [Admit \ Transfer \ Status] [RC] .ONCE 03/17/21 07:59 Telemetry- [RC] Q4HR 03/17/21 08:00 D5ns W/20 Meq KCl 1,000 ml IV 40 mls/hr 03/18/21 05:00 COMPREHENSIVE METABOLIC PANEL [CHEM] Timed MAGNESIUM [CHEM] Timed PHOSPHORUS [CHEM] Timed PREALBUMIN [CHEM] Timed 03/21/21 05:00 COMPREHENSIVE METABOLIC PANEL [CHEM] Timed MAGNESIUM [CHEM] Timed PHOSPHORUS [CHEM] Timed PREALBUMIN [CHEM] Timed Subjective - Subjective Patient Reports: Other (Awake, pulling at bed sheets, swings at staff with her L hand, speaking and asks for pillow to be moved) Objective Vital Signs: Vital Signs - 24 hr 03/16/21 03/16/21 03/16/21 09:00 10:00 11:00 Temperature 37 C Heart Rate [ 113 H 120 H 118 H Monitoring electrodes] Respiratory 19 18 19 Rate Blood Pressure Blood Pressure 92/63 108/53 L 104/62 [Left Brachial artery] O2 Saturation 96 96 97 03/16/21 03/16/21 03/16/21 12:00 12:39 13:00 Temperature 37 C 37 C Heart Rate [ 110 H 108 H Monitoring electrodes] Respiratory 17 17 Rate Blood Pressure 111/60 Blood Pressure 103/71 118/71 [Left Brachial artery] O2 Saturation 97 96 03/16/21 03/16/2121 14:00 15:00 15:28 Temperature Heart Rate [ 109 H 112 H 114 H Monitoring electrodes] Respiratory 17 18 Rate Blood Pressure Blood Pressure 114/76 104/61 94/68 [Left Brachial artery] O2 Saturation 98 98 03/16/21 03/16/21 03/16/21 16:00 16:34 17:00 Temperature 37 C 37.1 C Heart Rate [ 121 H 127 H 112 H Monitoring electrodes] Respiratory 19 17 Rate Blood Pressure Blood Pressure 103/63 102/60 102/60 [Left Brachial artery] O2 Saturation 98 97 03/16/21 03/16/21 03/16/21 18:00 18:14 18:26 Temperature Heart Rate [ 134 H 125 H 123 H Monitoring electrodes] Respiratory 19 Rate Blood Pressure Blood Pressure 83/51 L 99/55 L 133/84 H [Left Brachial artery] O2 Saturation 97 03/16/21 03/16/21 03/16/21 18:27 18:54 18:56 Temperature Heart Rate [ 113 H 104 H Monitoring electrodes] Respiratory 17 Rate Blood Pressure 133/84 H Blood Pressure 88/51 L 96/46 L [Left Brachial artery] O2 Saturation 92 03/16/21 03/16/21 03/16/21 19:00 20:00 21:00 Temperature 37.3 C 37.4 C Heart Rate [ 107 H 116 H 120 H Monitoring electrodes] Respiratory 19 19 18 Rate Blood Pressure Blood Pressure 98/64 91/57 L 104/68 [Left Brachial artery] O2 Saturation 97 98 97 03/16/21 03/16/21 03/17/21 22:00 23:00 00:00 Temperature 37.4 C Heart Rate [ 116 H 122 H 123 H Monitoring electrodes] Respiratory 21 18 18 Rate Blood Pressure Blood Pressure 102/84 H 106/64 113/57 L [Left Brachial artery] O2 Saturation 96 97 96 03/17/21 03/17/21 03/17/21 00:48 01:00 02:00 Temperature 37.5 C Heart Rate [ 103 H 121 H Monitoring electrodes] Respiratory 17 19 Rate Blood Pressure 113/59 L Blood Pressure 96/83 H 145/102 H [Left Brachial artery] O2 Saturation 97 94 03/17/21 03/17/21 03/17/21 03:00 04:00 04:30 Temperature 37.5 C Heart Rate [ 117 H 121 H Monitoring electrodes] Respiratory 19 21 Rate Blood Pressure Blood Pressure 107/61 182/136 H 122/61 [Left Brachial artery] O2 Saturation 97 96 03/17/21 03/17/21 03/17/21 05:00 06:00 06:42 Temperature Heart Rate [ 117 H 115 H Monitoring electrodes] Respiratory 17 19 Rate Blood Pressure 103/57 L Blood Pressure 110/56 L 104/57 L [Left Brachial artery] O2 Saturation 97 97 03/17/21 07:00 Temperature 37.4 C Heart Rate [ 95 Monitoring electrodes] Respiratory 19 Rate Blood Pressure Blood Pressure 98/60 [Left Brachial artery] O2 Saturation 95 Oxygen O2 Source Room air Oxygen Flow Rate 2 I&O (Last 24 Hrs): Intake and Output Totals x24h 03/15/21 03/16/21 03/17/21 23:59 23:59 23:59 Intake Total 2420.167 4404.394 1900 Output Total 1365 1140 145 Balance 5461.380 1323.394 1755 General: Alert, No acute distress, Other (Confused) HEENT: Mucous membr. moist/pink, Other (Poor dentition, eye lashes crusty) Neck: Supple Neuro: Alert, Other (R hand contracted, R arm and leg are limp) Cardiovascular: No murmurs, Other (Tachy) Respiratory: No respiratory distress, Breath sounds nml Abdomen: Soft Extremities: No edema, Other (No tentting) - Results Results: Laboratory Results WBC 23.0 x10^3/uL (4.8-10.8) H 03/17/21 05:10 RBC 3.79 10^6/uL (4.20-5.40) L 03/17/21 05:10 Hgb 10.5 g/dL (12.0-16.0) L 03/17/21 05:10 Hct 33.3 % (37.0-47.0) L 03/17/21 05:10 MCV 87.9 fL (81.0-99.0) 03/17/21 05:10 MCH 27.7 pg (27.0-31.0) 03/17/21 05:10 MCHC 31.5 g/dL (32.0-36.0) L 03/17/21 05:10 RDW 18.2 % (12.0-15.0) H 03/17/21 05:10 Plt Count 150 10^3/uL (130-450) 03/17/21 05:10 MPV 10.5 fL (7.9-10.8) 03/17/21 05:10 Neut # (Auto) Not Reportable 03/17/21 05:10 Lymph # (Auto) Not Reportable 03/17/21 05:10 [place] # (Auto) Not Reportable 03/17/21 05:10 Eos # (Auto) Not Reportable 03/17/21 05:10 Baso # (Auto) Not Reportable 03/17/21 05:10 Absolute Nucleated RBC Not Reportable 03/17/21 05:10 Total Counted 100 03/17/21 05:10 Band Neuts % (Manual) 0 % (0-10) 03/17/21 05:10 Abnorm Lymph % (Manual) 0 % 03/17/21 05:10 Nucleated RBC % Not Reportable 03/17/21 05:10 Neutrophils # (Manual) 18.9 10^3/uL (1.5-6.6) H 03/17/21 05:10 Lymphocytes # (Manual) 3.0 10^3/uL (1.5-3.5) 03/17/21 05:10 Monocytes # (Manual) 0.7 10^3/uL (0.0-1.0) 03/17/21 05:10 Eosinophils # (Manual) 0.5 10^3/uL (0-0.7) 03/17/21 05:10 Basophils # (Manual) 0.0 10^3/uL (0-0.1) 03/17/21 05:10 Differential Comment MANUAL DIFFERENTIAL 03/17/21 05:10 Manual Slide Review Indicated 03/12/21 10:38 WBC Morphology NORMAL APPEARANCE (NORMAL) 03/17/21 05:10 Platelet Estimate NORMAL (130-450,000) (NORMAL) 03/17/21 05:10 Platelet Morphology NORMAL APPEARANCE (NORMAL) 03/17/21 05:10 RBC Morph Micro Appear 1+ AURELIA CELLS (NORMAL) 03/17/21 05:10 PT 17.7 secs (9.9-12.6) H 03/12/21 13:10 INR 1.6 (0.8-1.2) H 03/12/21 13:10 VBG pH 7.382 (7.31-7.41) 03/16/21 13:15 Ionized Calcium 1.16 mmol/L (1.15-1.33) 03/16/21 13:15 Sodium 137 mmol/L (135-145) 03/17/21 05:10 Potassium 3.1 mmol/L (3.5-5.0) L 03/17/21 05:10 Chloride 110 mmol/L (101-111) 03/17/21 05:10 Carbon Dioxide 20 mmol/L (21-32) L 03/17/21 05:10 Anion Gap 7.0 (6-13) 03/17/21 05:10 BUN 20 mg/dL (6-20) 03/17/21 05:10 Creatinine 0.6 mg/dL (0.4-1.0) 03/17/21 05:10 Estimated GFR (MDRD) 95 (>89) 03/17/21 05:10 Glucose 125 mg/dL (70-100) H 03/17/21 05:10 POC Whole Bld Glucose 106 mg/dL (70 - 100) H 03/17/21 06:33 Lactic Acid 1.5 mmol/L (0.5-2.2) 03/15/21 04:40 Calcium 7.3 mg/dL (8.5-10.3) L 03/17/21 05:10 Phosphorus 2.2 mg/dL (2.5-4.6) L 03/17/21 05:10 Magnesium 2.0 mg/dL (1.7-2.8) 03/17/21 05:10 Total Bilirubin 0.9 mg/dL (0.2-1.0) 03/16/21 04:45 AST 40 IU/L (10-42) 03/16/21 04:45 ALT 39 IU/L (10-60) 03/16/21 04:45 Alkaline Phosphatase 119 IU/L (42-121) 03/16/21 04:45 Total Creatine Kinase 12 IU/L (22-269) L 03/12/21 15:08 Troponin I High Sens 63.9 ng/L (2.3-14.8) H* 03/12/21 15:08 B-Natriuretic Peptide 230 pg/mL (5-100) H 03/12/21 11:31 Total Protein 5.0 g/dL (6.7-8.2) L 03/16/21 04:45 Albumin 2.0 g/dL (3.2-5.5) L 03/16/21 04:45 Globulin 3.0 g/dL (2.1-4.2) 03/16/21 04:45 Albumin/Globulin Ratio 0.7 (1.0-2.2) L 03/16/21 04:45 Prealbumin 3 mg/dL (18-45) L 03/16/21 04:45 Lipase 40 U/L (22-51) 03/12/21 11:31 Urine Color BROWN 03/12/21 22:48 Urine Clarity CLOUDY (CLEAR) 03/12/21 22:48 Urine pH 5.0 PH (5.0-7.5) 03/12/21 22:48 Ur Specific [place] 1.025 (1.002-1.030) 03/12/21 22:48 Urine Protein >=300 mg/dL (NEGATIVE) H 03/12/21 22:48 Urine Glucose (UA) NEGATIVE mg/dL (NEGATIVE) 03/12/21 22:48 Urine Ketones NEGATIVE mg/dL (NEGATIVE) 03/12/21 22:48 Urine Occult Blood LARGE (NEGATIVE) H 03/12/21 22:48 Urine Nitrite POSITIVE (NEGATIVE) H 03/12/21 22:48 Urine Bilirubin NEGATIVE (NEGATIVE) 03/12/21 22:48 Urine Urobilinogen 0.2 (NORMAL) E.U./dL (NORMAL) 03/12/21 22:48 Ur Leukocyte Esterase MODERATE (NEGATIVE) H 03/12/21 22:48 Urine RBC 11-25 /HPF (0-5) H 03/12/21 22:48 Urine WBC 6-10 /HPF (0-5) H 03/12/21 22:48 Ur Squamous Epith Cells NONE SEEN (<= Few) 03/12/21 22:48 Urine Bacteria Many /HPF (None Seen) H 03/12/21 22:48 Ur Microscopic Review INDICATED 03/12/21 22:48 Urine Culture Comments INDICATED 03/12/21 22:48 Nasal Adenovirus (PCR) NOT DETECTED 03/12/21 14:27 Nasal B. parapertussis DNA (PCR) NOT DETECTED 03/12/21 14:27 Nasal Coronavir 229E PCR NOT DETECTED 03/12/21 14:27 Nasal Coronavir HKU1 PCR NOT DETECTED 03/12/21 14:27 Nasal Coronavir NL63 PCR NOT DETECTED 03/12/21 14:27 Nasal Coronavir OC43 PCR NOT DETECTED 03/12/21 14:27 Nasal Enterovir/Rhinovir PCR NOT DETECTED 03/12/21 14:27 Nasal Influenza B PCR NOT DETECTED 03/12/21 14:27 Nasal Influenza A PCR NOT DETECTED 03/12/21 14:27 Nasal Parainfluen 1 PCR NOT DETECTED 03/12/21 14:27 Nasal Parainfluen 2 PCR NOT DETECTED 03/12/21 14:27 Nasal Parainfluen 3 PCR NOT DETECTED 03/12/21 14:27 Nasal Parainfluen 4 PCR NOT DETECTED 03/12/21 14:27 Nasal RSV (PCR) NOT DETECTED 03/12/21 14:27 Nasal Screen MRSA (PCR) NEGATIVE (NEGATIVE) 03/12/21 14:15 Nasal B.pertussis DNA PCR NOT DETECTED 03/12/21 14:27 Nasal C.pneumoniae (PCR) NOT DETECTED 03/12/21 14:27 Brian Human Metapneumo PCR NOT DETECTED 03/12/21 14:27 Nasal M.pneumoniae (PCR) NOT DETECTED 03/12/21 14:27 Nasal SARS-CoV-2 (PCR) NOT DETECTED 03/12/21 14:27 - Procedures Procedures: Procedures EXCISION OF ASCENDING COLON, ENDO, DIAGN (07/05/16) EXCISION OF DESCENDING COLON, ENDO, DIAGN (07/05/16) EXCISION OF RECTUM, ENDO, DIAGN (07/05/16) EXCISION OF SIGMOID COLON, ENDO, DIAGN (07/05/16) EXCISION OF TRANSVERSE COLON, ENDO, DIAGN (07/05/16) Sepsis Event Note (H) - Evaluation Current Stage of Sepsis: Severe sepsis Possible source of Sepsis: positive: Genitourinary - Sepsis Criteria Sepsis Criteria: Recorded Heart Rate greater than 90 bpm, WBC count greater than 12,000 or less than 4000, 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
[2021-03-17] MEDS: D5NS W/20 MEQ KCL 1,000 ML IV SCH (08:47)
[2021-03-17] MEDS: ASPIRIN CHEW 81 MG TABLET PO SCH (08:48)
[2021-03-17] MEDS: HEPARIN 5,000 UNIT/ML VIAL SUBQ SCH ×2 (08:48→21:13)
[2021-03-17] MEDS: polyethylene glycoL 3350 17 GM PACKET PO SCH (08:49)
[2021-03-17 10:08] LABS: VANCOMYCIN,TROUGH 11.3 ug/mL (10.0-20.0)
[2021-03-17] MEDS: VANCOMYCIN INJ 1 GM, VANCOMYCIN INJ 500 MG in SODIUM CHLORIDE 0.9% 500 ML IV SCH (11:35)
[2021-03-17 11:48] LABS: BILIRUBIN,URINE NEGATIVE (NEGATIVE); GLUCOSE, URINE (UA) NEGATIVE (NEGATIVE); KETONES,URINE (UA) NEGATIVE (NEGATIVE); LEUKOCYTE ESTERASE, URINE LARGE (NEGATIVE); NITRITE,URINE NEGATIVE (NEGATIVE); OCCULT BLOOD,URINE LARGE (NEGATIVE); PH,URINE 5.5 PH (5.0-7.5); PROTEIN,URINE 100 mg/dL (NEGATIVE); UROBILINOGEN,URINE 0.2 (NORMAL) E.U./dL (NORMAL)
[2021-03-17 11:49] LABS: CLARITY,URINE CLOUDY (CLEAR); RBC,URINE TNTC /HPF (0-5)
[2021-03-17 11:51] LABS: SQUAMOUS EPITHELIAL CELL,UR NONE SEEN (<= Few)
[2021-03-17 11:52] LABS: BACTERIA,URINE Few /HPF (None Seen); YEAST,URINE PRESENT
[2021-03-17 11:53] LABS: CREATININE,URINE 31.9 mg/dL; POTASSIUM,URINE 46.1 mmol/L
[2021-03-17] MEDS: METOPROLOL TARTRATE 25 MG TABLET PO SCH ×2 (14:40→21:19)
[2021-03-17] MEDS: diltiaZEM INJ 125 MG in DEXTROSE 5% 100 ML IV SCH (14:56)
[2021-03-17] MEDS ORDERED: diltiaZEM INJ 125 MG in DEXTROSE 5% 100 ML IV SCH (15:00)
[2021-03-17] MEDS: MIRTAZAPINE 15 MG TABLET PO SCH (21:12)
[2021-03-17] MEDS: ATORVASTATIN 10 MG TABLET PO SCH (21:13)
[2021-03-18] MEDS: PIPERACILLIN/TAZOBACTAM 3.375 GM in SODIUM CHLORIDE 0.9% MINIBAG 100 ML IV SCH ×3 (00:22→16:43)
[2021-03-18] MEDS: METOPROLOL TARTRATE 25 MG TABLET PO SCH ×3 (06:09→21:39)
[2021-03-18 06:36] LABS: BASOPHILS # (AUTO) 0.1 10^3/uL (0.0-0.1); BASOPHILS % (AUTO) 0.5 %; EOSINOPHILS # (AUTO) 0.6 10^3/uL (0.0-0.7); EOSINOPHILS % (AUTO) 3.3 %; HCT - HEMATOCRIT 31.3 % (37.0-47.0); HGB - HEMOGLOBIN 10.1 g/dL (12.0-16.0); LYMPHOCYTES # (AUTO) 1.9 10^3/uL (1.5-3.5); LYMPHOCYTES % (AUTO) 11.5 %; MEAN CORPUSCULAR HGB CONC 32.3 g/dL (32.0-36.0); MEAN CORPUSCULAR VOLUME 86.7 fL (81.0-99.0); MEAN PLATELET VOLUME 10.5 fL (7.9-10.8); MONOCYTES # (AUTO) 0.7 10^3/uL (0.0-1.0); NEUTROPHILS # (AUTO) 13.5 10^3/uL (1.5-6.6); NEUTROPHILS % (AUTO) 79.9 %; PLT - PLATELET COUNT 164 10^3/uL (130-450); RED BLOOD COUNT 3.61 10^6/uL (4.20-5.40); RED CELL DISTRIBUTION WIDTH 17.9 % (12.0-15.0); WHITE BLOOD COUNT 16.9 x10^3/uL (4.8-10.8)
[2021-03-18 06:46] LABS: CALCIUM 7.3 mg/dL (8.5-10.3); CREATININE 0.7 mg/dL (0.4-1.0); PHOSPHORUS 2.5 mg/dL (2.5-4.6); POTASSIUM 3.2 mmol/L (3.5-5.0)
[2021-03-18 06:49] LABS: ALBUMIN 1.7 g/dL (3.2-5.5); ALBUMIN/GLOBULIN RATIO 0.7 (1.0-2.2); BILIRUBIN,TOTAL 0.9 mg/dL (0.2-1.0); CALCIUM 7.3 mg/dL (8.5-10.3); CREATININE 0.6 mg/dL (0.4-1.0); POTASSIUM 3.2 mmol/L (3.5-5.0); TOTAL PROTEIN 4.2 g/dL (6.7-8.2)
[2021-03-18] MEDS: SODIUM CHLORIDE FLUSH 0.9% 10 ML SYRINGE IVP SCH ×2 (09:00→18:14)
[2021-03-18] MEDS: polyethylene glycoL 3350 17 GM PACKET PO SCH (09:00)
[2021-03-18] MEDS: ASPIRIN CHEW 81 MG TABLET PO SCH (09:12)
[2021-03-18] MEDS: NEUTRA-PHOS 250 MG TABLET PO SCH ×2 (09:12→11:00)
[2021-03-18] MEDS: HEPARIN 5,000 UNIT/ML VIAL SUBQ SCH ×2 (09:13→21:26)
[2021-03-18] MEDS: D5NS W/20 MEQ KCL 1,000 ML IV SCH ×2 (09:23→14:57)
--- NOTE | 2021-03-18 16:46 | PROVIDER PROGRESS NOTE ---
Assessment/Plan - Problem List (1) Encephalopathy Assessment/Plan: She has returned back to being obtunded, after was awake and speaking and using her L arm yesterday. This is despite improving WBC and hydration and nutrition. NG feeds had to be stopped today due to diarrhea. Will continue iv fluids. We may need to discuss with ID and [facility] for further recom I will reach out to the son regarding possible palliative care consult or even hospice (2) Diarrhea Assessment/Plan: This started after NG feeds were begun even with Levophed off. We will stop the NG feeds, resume IV hydration (3) Severe sepsis Assessment/Plan: She was weaned off iv Levophed overnight. WBC slowly decreasing, is 23 today. The U/A grew polymicrobial sidney, so probably a contaminant/bacteriuria and not a UTI, her source may be the sacral decubitus therefore Continue empiric iv Vanco and Zosyn Follow CBC w/ diff daily We may need to reach out to ID (4) Atrial fibrillation with rapid ventricular response Assessment/Plan: Her Afib rate was controlled until yesterday, today HR still elev, 100-110 in Afib. Will continue with meds for HR control, IV Cardizem has been off last 24-hour Continue Dig daily. Follow Dig level Continue with beta-daniella doses either p.o. or IV (5) Staghorn calculus Assessment/Plan: This was seen on imaging at the time of admission and it is not causing obstruction (6) Hypokalemia Assessment/Plan: With K riders. Follow BMP daily (7) History of stroke with residual deficit Assessment/Plan: As per Hx (8) Hypoglycemia Assessment/Plan: One glucose reading was in the 60s today. We are resuming IV fluids containing D5 1 amp D50 was ordered for the low glucose (9) Metabolic acidosis Assessment/Plan: Low serum CO2 level persists. Continue with IV fluids and supportive care (10) Hyperkalemia Assessment/Plan: Resolved (11) Hypernatremia Assessment/Plan: Resolved with free water and D5 for a day (12) UTI (urinary tract infection) Qualifiers: Urinary tract infection type: site unspecified Assessment/Plan: The urine culture grew polymicrobial sidney. The UA was repeated and urine culture then grew only fungi (13) GALLO (acute kidney injury) Assessment/Plan: Resolved with ivf - Current Meds Current Meds: Current Medications Generic Name Dose Route Start Last Admin Trade Name Freq PRN Reason Stop Dose Admin Aspirin 81 mg 03/16/21 09:00 03/18/21 09:12 Aspirin Chew 81 Mg Tablet PO 81 mg DAILY AVELINO Administration Atorvastatin Calcium 20 mg 03/13/21 21:00 03/17/21 21:13 Atorvastatin 10 Mg Tablet PO 20 mg QPM AVELINO Administration Heparin Sodium (Porcine) 5,000 unit 03/12/21 21:00 03/18/21 09:13 Heparin 5,000 Unit/Ml Vial SUBQ 5,000 unit BID AVELINO Administration Piperacillin Sod/Tazobactam 100 mls @ 25 mls/hr 03/14/21 08:00 03/18/21 16:43 Sod 3.375 gm/ Sodium Chloride IV 25 mls/hr Q8H AVELINO Administration Vancomycin HCl 1 gm/ 500 mls @ 250 mls/hr 03/15/21 22:00 03/17/21 13:10 Vancomycin HCl 500 mg/ Sodium IV 0 mls/hr Chloride Q36H AVELINO Infusion Norepinephrine Bitartrate 8 mg 250 mls @ 15 mls/hr 03/17/21 10:00 03/18/21 05:45 / Dextrose IV 0 mcg/min .[id number] AVELINO 0 mls/hr Titration Protocol 8 MCG/MIN Diltiazem HCl 125 mg/ Dextrose 125 mls @ 5 mls/hr 03/17/21 15:00 03/18/21 06:40 IV 0 mg/hr .Q25H AVELINO 0 mls/hr Titration Protocol 5 MG/HR Potassium Chloride/Dextrose/Sod Cl 1,000 mls @ 100 mls/hr 03/18/21 14:47 03/18/21 14:57 D5ns W/20 Meq Kcl IV 100 mls/hr .Q10H AVELINO Administration Metoprolol Tartrate 25 mg 03/17/21 14:00 03/18/21 14:58 Metoprolol Tartrate 25 Mg Tablet PO Not Given TID AVELINO Mirtazapine 7.5 mg 03/13/21 21:00 03/17/21 21:12 Mirtazapine 15 Mg Tablet PO 7.5 mg QPM AVELINO Administration Multi-Ingredient Ointment 1 applic 03/13/21 10:42 03/16/21 10:54 Zinc Oxide 20% Oint 30 Gm Tube TOP 1 applic PRN PRN Administration Skin Care Polyethylene Glycol 17 gm 03/13/21 12:00 03/18/21 09:00 Polyethylene Glycol 3350 17 Gm Packet PO Not Given DAILY AVELINO Sodium Chloride 10 ml 03/12/21 17:00 03/18/21 09:00 Sodium Chloride Flush 0.9% 10 Ml Syringe IVP 10 ml 0100,0900,1700 AVELINO Administration Sodium Chloride 10 ml 03/12/21 12:26 03/16/21 18:39 Sodium Chloride Flush 0.9% 10 Ml Syringe IVP 30 ml PRN PRN Administration NEEDED PER PROVIDER ORDERS - Lab Result Fish Bone Diagrams: 03/18/21 06:00 03/18/21 06:00 - Additional Planning My Orders: My Active Orders 03/17/21 17:25 Miscellaenous Nursing Order [RC] DAILY 03/18/21 11:13 Miscellaenous Nursing Order [RC] ONCE 03/18/21 14:47 D5ns W/20 Meq KCl 1,000 ml IV 100 mls/hr 03/21/21 05:00 COMPREHENSIVE METABOLIC PANEL [CHEM] Timed MAGNESIUM [CHEM] Timed PHOSPHORUS [CHEM] Timed PREALBUMIN [CHEM] Timed Subjective - Subjective Patient Reports: Other (Sleepy) Nursing Reports: Other (Only awakens to sternal rub) Objective Vital Signs: Vital Signs - 24 hr 03/17/21 03/17/21 03/17/21 17:00 18:00 19:00 Temperature Heart Rate [ 121 H 103 H 102 H Monitoring electrodes] Respiratory 25 H 21 19 Rate Blood Pressure Blood Pressure 102/83 H 115/62 102/57 L [Left Brachial artery] O2 Saturation 98 95 95 03/17/21 03/17/21 03/17/21 20:00 21:00 21:19 Temperature 37.3 C Heart Rate [ 114 H 102 H Monitoring electrodes] Respiratory 20 20 Rate Blood Pressure 103/66 Blood Pressure 97/58 L 108/54 L [Left Brachial artery] O2 Saturation 96 97 03/17/21 03/17/21 03/18/21 22:00 23:00 00:00 Temperature 97.1 C H 36.8 C Heart Rate [ 85 96 91 Monitoring electrodes] Respiratory 20 19 18 Rate Blood Pressure Blood Pressure 102/58 L 101/67 98/80 [Left Brachial artery] O2 Saturation 97 97 95 0903/18/21 03/18/21 01:00 02:00 03:00 Temperature 36.8 C 36.7 C 36.6 C Heart Rate [ 97 96 91 Monitoring electrodes] Respiratory 19 19 18 Rate Blood Pressure Blood Pressure 123/91 H 94/57 L 105/50 L [Left Brachial artery] O2 Saturation 95 98 95 03/18/21 03/18/21 03/18/21 03:55 04:03 05:00 Temperature 36.5 C 36.4 C L Heart Rate [ 92 86 Monitoring electrodes] Respiratory 17 21 Rate Blood Pressure Blood Pressure 83/48 L 97/67 101/58 L [Left Brachial artery] O2 Saturation 95 96 03/18/21 03/18/21 03/18/21 06:00 06:09 07:00 Temperature 36.3 C L 36.1 C L Heart Rate [ 83 88 Monitoring electrodes] Respiratory 17 17 Rate Blood Pressure 88/66 L Blood Pressure 92/53 L 98/62 [Left Brachial artery] O2 Saturation 98 98 03/18/21 03/18/21 03/18/21 08:00 09:00 10:00 Temperature 36.0 C L 35.9 C L 35.9 C L Heart Rate [ 88 95 94 Monitoring electrodes] Respiratory 17 19 15 Rate Blood Pressure Blood Pressure 94/55 L 93/50 L 105/65 [Left Brachial artery] O2 Saturation 95 97 95 03/18/21 03/18/21 03/18/21 11:00 12:00 13:00 Temperature 35.9 C L 35.9 C L Heart Rate [ 94 96 93 Monitoring electrodes] Respiratory 16 16 16 Rate Blood Pressure Blood Pressure 54/46 L 87/52 L 90/56 L [Left Brachial artery] O2 Saturation 91 L 94 97 03/18/21 03/18/21 03/18/21 14:00 14:58 15:00 Temperature Heart Rate [ 95 98 Monitoring electrodes] Respiratory 16 15 Rate Blood Pressure 83/45 L Blood Pressure 91/53 L 86/52 L [Left Brachial artery] O2 Saturation 100 96 03/18/21 16:00 Temperature 35.9 C L Heart Rate [ 116 H Monitoring electrodes] Respiratory 18 Rate Blood Pressure Blood Pressure 100/69 [Left Brachial artery] O2 Saturation 100 Oxygen O2 Source Room air Oxygen Flow Rate 2 I&O (Last 24 Hrs): Intake and Output Totals x24h 03/16/21 03/17/21 03/18/21 23:59 23:59 23:59 Intake Total 4404.394 4658.751 1524.396 Output Total 1140 606 690 Balance 3264.394 4052.751 834.396 General: Other (Somnolent) HEENT: Mucous membr. moist/pink, Other (Pale) Neck: Supple, No JVD Neuro: Other (Somnolent, awakens to sternal rub and goes back to sleep) Cardiovascular: No murmurs, Other (Irreg irreg) Respiratory: No respiratory distress Abdomen: Soft Extremities: No edema (edema of L hand and pre-tibial) - Results Results: Laboratory Results WBC 16.9 x10^3/uL (4.8-10.8) H 03/18/21 06:00 RBC 3.61 10^6/uL (4.20-5.40) L 03/18/21 06:00 Hgb 10.1 g/dL (12.0-16.0) L 03/18/21 06:00 Hct 31.3 % (37.0-47.0) L 03/18/21 06:00 MCV 86.7 fL (81.0-99.0) 03/18/21 06:00 MCH 28.0 pg (27.0-31.0) 03/18/21 06:00 MCHC 32.3 g/dL (32.0-36.0) 03/18/21 06:00 RDW 17.9 % (12.0-15.0) H 03/18/21 06:00 Plt Count 164 10^3/uL (130-450) 03/18/21 06:00 MPV 10.5 fL (7.9-10.8) 03/18/21 06:00 Neut # (Auto) 13.5 10^3/uL (1.5-6.6) H 03/18/21 06:00 Lymph # (Auto) 1.9 10^3/uL (1.5-3.5) 03/18/21 06:00 [place] # (Auto) 0.7 10^3/uL (0.0-1.0) 03/18/21 06:00 Eos # (Auto) 0.6 10^3/uL (0.0-0.7) 03/18/21 06:00 Baso # (Auto) 0.1 10^3/uL (0.0-0.1) 03/18/21 06:00 Absolute Nucleated RBC 0.00 x10^3/uL 03/18/21 06:00 Total Counted 100 03/17/21 05:10 Band Neuts % (Manual) 0 % (0-10) 03/17/21 05:10 Abnorm Lymph % (Manual) 0 % 03/17/21 05:10 Nucleated RBC % 0.0 /100WBC 03/18/21 06:00 Neutrophils # (Manual) 18.9 10^3/uL (1.5-6.6) H 03/17/21 05:10 Lymphocytes # (Manual) 3.0 10^3/uL (1.5-3.5) 03/17/21 05:10 Monocytes # (Manual) 0.7 10^3/uL (0.0-1.0) 03/17/21 05:10 Eosinophils # (Manual) 0.5 10^3/uL (0-0.7) 03/17/21 05:10 Basophils # (Manual) 0.0 10^3/uL (0-0.1) 03/17/21 05:10 Differential Comment MANUAL DIFFERENTIAL 03/17/21 05:10 Manual Slide Review Indicated 03/12/21 10:38 WBC Morphology NORMAL APPEARANCE (NORMAL) 03/17/21 05:10 Platelet Estimate NORMAL (130-450,000) (NORMAL) 03/17/21 05:10 Platelet Morphology NORMAL APPEARANCE (NORMAL) 03/17/21 05:10 RBC Morph Micro Appear 1+ AURELIA CELLS (NORMAL) 03/17/21 05:10 PT 17.7 secs (9.9-12.6) H 03/12/21 13:10 INR 1.6 (0.8-1.2) H 03/12/21 13:10 VBG pH 7.382 (7.31-7.41) 03/16/21 13:15 Ionized Calcium 1.16 mmol/L (1.15-1.33) 03/16/21 13:15 Sodium 136 mmol/L (135-145) 03/18/21 06:00 Sodium 137 mmol/L (135-145) 03/18/21 06:00 Potassium 3.2 mmol/L (3.5-5.0) L 03/18/21 06:00 Potassium 3.2 mmol/L (3.5-5.0) L 03/18/21 06:00 Chloride 111 mmol/L (101-111) 03/18/21 06:00 Chloride 113 mmol/L (101-111) H 03/18/21 06:00 Carbon Dioxide 18 mmol/L (21-32) L 03/18/21 06:00 Carbon Dioxide 18 mmol/L (21-32) L 03/18/21 06:00 Anion Gap 6.0 (6-13) 03/18/21 06:00 Anion Gap 7.0 (6-13) 03/18/21 06:00 BUN 17 mg/dL (6-20) 03/18/21 06:00 BUN 18 mg/dL (6-20) 03/18/21 06:00 Creatinine 0.6 mg/dL (0.4-1.0) 03/18/21 06:00 Creatinine 0.7 mg/dL (0.4-1.0) 03/18/21 06:00 Estimated GFR (MDRD) 79 (>89) L 03/18/21 06:00 Estimated GFR (MDRD) 95 (>89) 03/18/21 06:00 Glucose 115 mg/dL (70-100) H 03/18/21 06:00 Glucose 116 mg/dL (70-100) H 03/18/21 06:00 POC Whole Bld Glucose 105 mg/dL (70 - 100) H 03/18/21 05:52 Lactic Acid 1.1 mmol/L (0.5-2.2) 03/18/21 10:03 Calcium 7.3 mg/dL (8.5-10.3) L 03/18/21 06:00 Calcium 7.3 mg/dL (8.5-10.3) L 03/18/21 06:00 Phosphorus 2.5 mg/dL (2.5-4.6) 03/18/21 06:00 Magnesium 2.0 mg/dL (1.7-2.8) 03/18/21 06:00 Total Bilirubin 0.9 mg/dL (0.2-1.0) 03/18/21 06:00 AST 44 IU/L (10-42) H 03/18/21 06:00 ALT 51 IU/L (10-60) 03/18/21 06:00 Alkaline Phosphatase 131 IU/L (42-121) H 03/18/21 06:00 Total Creatine Kinase 12 IU/L (22-269) L 03/12/21 15:08 Troponin I High Sens 63.9 ng/L (2.3-14.8) H* 03/12/21 15:08 B-Natriuretic Peptide 230 pg/mL (5-100) H 03/12/21 11:31 Total Protein 4.2 g/dL (6.7-8.2) L 03/18/21 06:00 Albumin 1.7 g/dL (3.2-5.5) L 03/18/21 06:00 Globulin 2.5 g/dL (2.1-4.2) 03/18/21 06:00 Albumin/Globulin Ratio 0.7 (1.0-2.2) L 03/18/21 06:00 Prealbumin 3 mg/dL (18-45) L 03/18/21 06:00 Lipase 40 U/L (22-51) 03/12/21 11:31 Urine Color BROWN 03/17/21 11:25 Urine Clarity CLOUDY (CLEAR) 03/17/21 11:25 Urine pH 5.5 PH (5.0-7.5) 03/17/21 11:25 Ur Specific [place] 1.025 (1.002-1.030) 03/17/21 11:25 Urine Protein 100 mg/dL (NEGATIVE) H 03/17/21 11:25 Urine Glucose (UA) NEGATIVE mg/dL (NEGATIVE) 03/17/21 11:25 Urine Ketones NEGATIVE mg/dL (NEGATIVE) 03/17/21 11:25 Urine Occult Blood LARGE (NEGATIVE) H 03/17/21 11:25 Urine Nitrite NEGATIVE (NEGATIVE) 03/17/21 11:25 Urine Bilirubin NEGATIVE (NEGATIVE) 03/17/21 11:25 Urine Urobilinogen 0.2 (NORMAL) E.U./dL (NORMAL) 03/17/21 11:25 Ur Leukocyte Esterase LARGE (NEGATIVE) H 03/17/21 11:25 Urine RBC TNTC /HPF (0-5) H 03/17/21 11:25 Urine WBC 6-10 /HPF (0-5) H 03/17/21 11:25 Ur Squamous Epith Cells NONE SEEN (<= Few) 03/17/21 11:25 Urine Bacteria Few /HPF (None Seen) 03/17/21 11:25 Urine Yeast PRESENT 03/17/21 11:25 Ur Microscopic Review INDICATED 03/12/21 22:48 Urine Culture Comments INDICATED 03/17/21 11:25 Urine Creatinine 31.9 mg/dL 03/17/21 11:25 Urine Sodium 64.0 mmol/L 03/17/21 11:25 Urine Potassium 46.1 mmol/L 03/17/21 11:25 Nasal Adenovirus (PCR) NOT DETECTED 03/12/21 14:27 Nasal B. parapertussis DNA (PCR) NOT DETECTED 03/12/21 14:27 Nasal Coronavir 229E PCR NOT DETECTED 03/12/21 14:27 Nasal Coronavir HKU1 PCR NOT DETECTED 03/12/21 14:27 Nasal Coronavir NL63 PCR NOT DETECTED 03/12/21 14:27 Nasal Coronavir OC43 PCR NOT DETECTED 03/12/21 14:27 Nasal Enterovir/Rhinovir PCR NOT DETECTED 03/12/21 14:27 Nasal Influenza B PCR NOT DETECTED 03/12/21 14:27 Nasal Influenza A PCR NOT DETECTED 03/12/21 14:27 Nasal Parainfluen 1 PCR NOT DETECTED 03/12/21 14:27 Nasal Parainfluen 2 PCR NOT DETECTED 03/12/21 14:27 Nasal Parainfluen 3 PCR NOT DETECTED 03/12/21 14:27 Nasal Parainfluen 4 PCR NOT DETECTED 03/12/21 14:27 Nasal RSV (PCR) NOT DETECTED 03/12/21 14:27 Nasal Screen MRSA (PCR) NEGATIVE (NEGATIVE) 03/12/21 14:15 Nasal B.pertussis DNA PCR NOT DETECTED 03/12/21 14:27 Nasal C.pneumoniae (PCR) NOT DETECTED 03/12/21 14:27 Brian Human Metapneumo PCR NOT DETECTED 03/12/21 14:27 Nasal M.pneumoniae (PCR) NOT DETECTED 03/12/21 14:27 Nasal SARS-CoV-2 (PCR) NOT DETECTED 03/12/21 14:27 Last Dose Date Not Reportable 03/17/21 09:53 Last Dose Time Not Reportable 03/17/21 09:53 Vancomycin Trough 11.3 ug/mL (10.0-20.0) 03/17/21 09:53 - Procedures Procedures: Procedures EXCISION OF ASCENDING COLON, ENDO, DIAGN (07/05/16) EXCISION OF DESCENDING COLON, ENDO, DIAGN (07/05/16) EXCISION OF RECTUM, ENDO, DIAGN (07/05/16) EXCISION OF SIGMOID COLON, ENDO, DIAGN (07/05/16) EXCISION OF TRANSVERSE COLON, ENDO, DIAGN (07/05/16) Sepsis Event Note (H) - Evaluation Current Stage of Sepsis: Severe sepsis Possible source of Sepsis: positive: Genitourinary - Sepsis Criteria Sepsis Criteria: Recorded Heart Rate greater than 90 bpm, WBC count greater than 12,000 or less than 4000, 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
[2021-03-18] MEDS ORDERED: DEXTROSE 50% ABBOJECT 25 GM/50 ML SYRINGE IVP ONE (18:28)
[2021-03-18] MEDS: diltiaZEM INJ 125 MG in DEXTROSE 5% 100 ML IV SCH (21:24)
[2021-03-18] MEDS: ATORVASTATIN 10 MG TABLET PO SCH (21:25)
[2021-03-18] MEDS: MIRTAZAPINE 15 MG TABLET PO SCH (21:26)
[2021-03-18] MEDS: VANCOMYCIN INJ 1 GM, VANCOMYCIN INJ 500 MG in SODIUM CHLORIDE 0.9% 500 ML IV SCH (21:36)
[2021-03-19] MEDS: SODIUM CHLORIDE FLUSH 0.9% 10 ML SYRINGE IVP SCH ×3 (00:13→15:50)
[2021-03-19] MEDS: D5NS W/20 MEQ KCL 1,000 ML IV SCH ×3 (00:13→22:41)
[2021-03-19] MEDS: PIPERACILLIN/TAZOBACTAM 3.375 GM in SODIUM CHLORIDE 0.9% MINIBAG 100 ML IV SCH ×3 (00:22→16:03)
[2021-03-19] MEDS ORDERED: ALBUMIN 25% 12.5 GM/50 ML VIAL IV STA (00:48)
[2021-03-19] MEDS ORDERED: DEXTROSE 50% ABBOJECT 25 GM/50 ML SYRINGE IVP ONE (00:51)
[2021-03-19] MEDS ORDERED: DEXTROSE 50% ABBOJECT 25 GM/50 ML SYRINGE ONE (00:51)
[2021-03-19 04:55] LABS: BASOPHILS # (AUTO) 0.1 10^3/uL (0.0-0.1); BASOPHILS % (AUTO) 0.3 %; EOSINOPHILS # (AUTO) 0.3 10^3/uL (0.0-0.7); EOSINOPHILS % (AUTO) 2.1 %; HGB - HEMOGLOBIN 9.4 g/dL (12.0-16.0); LYMPHOCYTES % (AUTO) 6.4 %; MEAN CORPUSCULAR HGB CONC 32.4 g/dL (32.0-36.0); MEAN CORPUSCULAR VOLUME 86.3 fL (81.0-99.0); MEAN PLATELET VOLUME 10.5 fL (7.9-10.8); MONOCYTES # (AUTO) 0.6 10^3/uL (0.0-1.0); MONOCYTES % (AUTO) 3.6 %; NEUTROPHILS # (AUTO) 13.3 10^3/uL (1.5-6.6); PLT - PLATELET COUNT 196 10^3/uL (130-450); RED BLOOD COUNT 3.36 10^6/uL (4.20-5.40); RED CELL DISTRIBUTION WIDTH 17.9 % (12.0-15.0); WHITE BLOOD COUNT 15.2 x10^3/uL (4.8-10.8)
[2021-03-19 05:10] LABS: CALCIUM 6.7 mg/dL (8.5-10.3); CREATININE 0.5 mg/dL (0.4-1.0); MAGNESIUM 1.5 mg/dL (1.7-2.8); POTASSIUM 3.9 mmol/L (3.5-5.0)
--- NOTE | 2021-03-19 06:56 | PROVIDER PROGRESS NOTE ---
Progress Note Chief Complaint reason for for admission: Encephalopathy/Sepsis Subjective/Interval history: 86-year-old white female was admitted on March 12 with critical illness, encephalopathy and sepsis, initially was in the ICU and treated fairly aggressively. Required vasopressors for septic shock. Could not take oral inta ke therefore received an NG tube and tube feeds. Notably she is chronically impaired has history of stroke with contractures and dysphagia. She is a long- term extended care facility at [facility]. Regardless of aggressive care her current course has been declining therefore de-escalation of the care was entertained. Of note the patient's CODE STATUS is DO NOT RESUSCITATE however not yet comfort care. Overnight the patient became increasingly uncomfortable and agitated trying to pull NG tube out and required soft wrist restraint. Additional issue in the past 24 hours was prolonged hypoglycemia, notably tube feeds were discontinued due to diarrhea and patient's discomfort, dextrose containing IV hydration was started but regardless the patient required several D50 pushes overnight for blood glucose measurements around 60. She continued to state that she wanted to be left alone and she was clearly uncomfortable not wanting to continue with medical care. Even blood glucose checks caused her significant discomfort. Although she was confused, she remained consistent with her choice of not wanting care and just wanted to be comfortable. When I examined her at the bedside her only complaint was that she "wanted to be left alone". Her mental status was fluctuating, somnolence alternating with agitation. Overnight I made an attempt to contact YUSEF Head and I left my phone number for him to return my call, I am awaiting his call back. Objective: Exam: General: Patient is a well-developed frail elderly female, laying in bed, arousable, opens eyes and tells me that she wanted to be left alone, she is obviously bothered and moaning with repositioning, blood glucose checks and any care that is given CVS: S1, S2, regular tachycardia Lymph: pitting edema Gastrointestinal: NG tube in place, benign abdomen, soft, bowel tones present Respiratory: No increased work of breathing, no wheezes or crackles Psych: Lethargic and yet impulsive, appears with alternating hypo and hyperactive delirium Neuro: Somnolent, has upper extremity contractures, does not cooperate with neuro exam but does not appear with new focal deficit Vital Signs Temp 37.0 C 03/19/21 05:00 Pulse 119 H 03/19/21 05:00 Resp 20 03/19/21 05:00 BP 110/48 L 03/19/21 05:00 Pulse Ox 97 03/19/21 05:00 Intake & Output 03/18/21 03/18/21 03/19/21 15:59 23:59 07:59 Intake Total 1285.333 905.312 1852.667 Output Total 650 15 Balance 635.333 115.443 9804.667 Laboratory Last Values WBC 15.2 x10^3/uL (4.8-10.8) H 03/19/21 04:40 RBC 3.36 10^6/uL (4.20-5.40) L 03/19/21 04:40 Hgb 9.4 g/dL (12.0-16.0) L 03/19/21 04:40 Hct 29.0 % (37.0-47.0) L 03/19/21 04:40 MCV 86.3 fL (81.0-99.0) 03/19/21 04:40 MCH 28.0 pg (27.0-31.0) 03/19/21 04:40 MCHC 32.4 g/dL (32.0-36.0) 03/19/21 04:40 RDW 17.9 % (12.0-15.0) H 03/19/21 04:40 Plt Count 196 10^3/uL (130-450) 03/19/21 04:40 MPV 10.5 fL (7.9-10.8) 03/19/21 04:40 Neut # (Auto) 13.3 10^3/uL (1.5-6.6) H 03/19/21 04:40 Lymph # (Auto) 1.0 10^3/uL (1.5-3.5) L 03/19/21 04:40 [place] # (Auto) 0.6 10^3/uL (0.0-1.0) 03/19/21 04:40 Eos # (Auto) 0.3 10^3/uL (0.0-0.7) 03/19/21 04:40 Baso # (Auto) 0.1 10^3/uL (0.0-0.1) 03/19/21 04:40 Absolute Nucleated RBC 0.00 x10^3/uL 03/19/21 04:40 Total Counted 100 03/17/21 05:10 Band Neuts % (Manual) 0 % (0-10) 03/17/21 05:10 Abnorm Lymph % (Manual) 0 % 03/17/21 05:10 Nucleated RBC % 0.0 /100WBC 03/19/21 04:40 Neutrophils # (Manual) 18.9 10^3/uL (1.5-6.6) H 03/17/21 05:10 Lymphocytes # (Manual) 3.0 10^3/uL (1.5-3.5) 03/17/21 05:10 Monocytes # (Manual) 0.7 10^3/uL (0.0-1.0) 03/17/21 05:10 Eosinophils # (Manual) 0.5 10^3/uL (0-0.7) 03/17/21 05:10 Basophils # (Manual) 0.0 10^3/uL (0-0.1) 03/17/21 05:10 Differential Comment MANUAL DIFFERENTIAL 03/17/21 05:10 Manual Slide Review Indicated 03/12/21 10:38 WBC Morphology NORMAL APPEARANCE (NORMAL) 03/17/21 05:10 Platelet Estimate NORMAL (130-450,000) (NORMAL) 03/17/21 05:10 Platelet Morphology NORMAL APPEARANCE (NORMAL) 03/17/21 05:10 RBC Morph Micro Appear 1+ AURELIA CELLS (NORMAL) 03/17/21 05:10 PT 17.7 secs (9.9-12.6) H 03/12/21 13:10 INR 1.6 (0.8-1.2) H 03/12/21 13:10 VBG pH 7.382 (7.31-7.41) 03/16/21 13:15 Ionized Calcium 1.16 mmol/L (1.15-1.33) 03/16/21 13:15 Sodium 139 mmol/L (135-145) 03/19/21 04:40 Potassium 3.9 mmol/L (3.5-5.0) 03/19/21 04:40 Chloride 118 mmol/L (101-111) H 03/19/21 04:40 Carbon Dioxide 17 mmol/L (21-32) L 03/19/21 04:40 Anion Gap 4.0 (6-13) L 03/19/21 04:40 BUN 12 mg/dL (6-20) 03/19/21 04:40 Creatinine 0.5 mg/dL (0.4-1.0) 03/19/21 04:40 Estimated GFR (MDRD) 117 (>89) 03/19/21 04:40 Glucose 335 mg/dL (70-100) H 03/19/21 04:40 POC Whole Bld Glucose 63 mg/dL (70 - 100) L 03/19/21 05:53 Lactic Acid 1.1 mmol/L (0.5-2.2) 03/18/21 10:03 Calcium 6.7 mg/dL (8.5-10.3) L 03/19/21 04:40 Phosphorus 2.0 mg/dL (2.5-4.6) L 03/19/21 04:40 Magnesium 1.5 mg/dL (1.7-2.8) L 03/19/21 04:40 Total Bilirubin 0.9 mg/dL (0.2-1.0) 03/18/21 06:00 AST 44 IU/L (10-42) H 03/18/21 06:00 ALT 51 IU/L (10-60) 03/18/21 06:00 Alkaline Phosphatase 131 IU/L (42-121) H 03/18/21 06:00 Total Creatine Kinase 12 IU/L (22-269) L 03/12/21 15:08 Troponin I High Sens 63.9 ng/L (2.3-14.8) H* 03/12/21 15:08 B-Natriuretic Peptide 230 pg/mL (5-100) H 03/12/21 11:31 Total Protein 4.2 g/dL (6.7-8.2) L 03/18/21 06:00 Albumin 1.7 g/dL (3.2-5.5) L 03/18/21 06:00 Globulin 2.5 g/dL (2.1-4.2) 03/18/21 06:00 Albumin/Globulin Ratio 0.7 (1.0-2.2) L 03/18/21 06:00 Prealbumin 3 mg/dL (18-45) L 03/18/21 06:00 Lipase 40 U/L (22-51) 03/12/21 11:31 Urine Color BROWN 03/17/21 11:25 Urine Clarity CLOUDY (CLEAR) 03/17/21 11:25 Urine pH 5.5 PH (5.0-7.5) 03/17/21 11:25 Ur Specific [place] 1.025 (1.002-1.030) 03/17/21 11:25 Urine Protein 100 mg/dL (NEGATIVE) H 03/17/21 11:25 Urine Glucose (UA) NEGATIVE mg/dL (NEGATIVE) 03/17/21 11:25 Urine Ketones NEGATIVE mg/dL (NEGATIVE) 03/17/21 11:25 Urine Occult Blood LARGE (NEGATIVE) H 03/17/21 11:25 Urine Nitrite NEGATIVE (NEGATIVE) 03/17/21 11:25 Urine Bilirubin NEGATIVE (NEGATIVE) 03/17/21 11:25 Urine Urobilinogen 0.2 (NORMAL) E.U./dL (NORMAL) 03/17/21 11:25 Ur Leukocyte Esterase LARGE (NEGATIVE) H 03/17/21 11:25 Urine RBC TNTC /HPF (0-5) H 03/17/21 11:25 Urine WBC 6-10 /HPF (0-5) H 03/17/21 11:25 Ur Squamous Epith Cells NONE SEEN (<= Few) 03/17/21 11:25 Urine Bacteria Few /HPF (None Seen) 03/17/21 11:25 Urine Yeast PRESENT 03/17/21 11:25 Ur Microscopic Review INDICATED 03/12/21 22:48 Urine Culture Comments INDICATED 03/17/21 11:25 Urine Creatinine 31.9 mg/dL 03/17/21 11:25 Urine Sodium 64.0 mmol/L 03/17/21 11:25 Urine Potassium 46.1 mmol/L 03/17/21 11:25 Nasal Adenovirus (PCR) NOT DETECTED 03/12/21 14:27 Nasal B. parapertussis DNA (PCR) NOT DETECTED 03/12/21 14:27 Nasal Coronavir 229E PCR NOT DETECTED 03/12/21 14:27 Nasal Coronavir HKU1 PCR NOT DETECTED 03/12/21 14:27 Nasal Coronavir NL63 PCR NOT DETECTED 03/12/21 14:27 Nasal Coronavir OC43 PCR NOT DETECTED 03/12/21 14:27 Nasal Enterovir/Rhinovir PCR NOT DETECTED 03/12/21 14:27 Nasal Influenza B PCR NOT DETECTED 03/12/21 14:27 Nasal Influenza A PCR NOT DETECTED 03/12/21 14:27 Nasal Parainfluen 1 PCR NOT DETECTED 03/12/21 14:27 Nasal Parainfluen 2 PCR NOT DETECTED 03/12/21 14:27 Nasal Parainfluen 3 PCR NOT DETECTED 03/12/21 14:27 Nasal Parainfluen 4 PCR NOT DETECTED 03/12/21 14:27 Nasal RSV (PCR) NOT DETECTED 03/12/21 14:27 Nasal Screen MRSA (PCR) NEGATIVE (NEGATIVE) 03/12/21 14:15 Nasal B.pertussis DNA PCR NOT DETECTED 03/12/21 14:27 Nasal C.pneumoniae (PCR) NOT DETECTED 03/12/21 14:27 Brian Human Metapneumo PCR NOT DETECTED 03/12/21 14:27 Nasal M.pneumoniae (PCR) NOT DETECTED 03/12/21 14:27 Nasal SARS-CoV-2 (PCR) NOT DETECTED 03/12/21 14:27 Last Dose Date Not Reportable 03/17/21 09:53 Last Dose Time Not Reportable 03/17/21 09:53 Vancomycin Trough 11.3 ug/mL (10.0-20.0) 03/17/21 09:53 Assessment and plan: Diagnoses/active issues Encephalopathy multifactorial -secondary to critical illness, delirium, sepsis/ metabolic abnormalities /including acute kidney injury superimposed on dementia/chronic cognitive impairment plus post stroke syndrome Septic shock required vasopressor, currently off Levophed maintaining blood pressure however still tachycardic Source of sepsis could be bilateral pneumonia, with high aspiration risk plus urinary tract infection with staghorn calculus, urine culture growing yeast, blood cultures remained negative Acute kidney injury in the setting of sepsis/Improved, renal function back to normal Atrial fibrillation with rapid ventricular rate History of cerebrovascular accident with permanent residual impairments of contractures, right sided weakness and dysphagia Prolonged hypoglycemia Severe hypoalbuminemia with albumin level below 2 Dysphagia/inability to take oral intake /After 1 week of aggressive medical treatment has not meaningfully improved, considering that she has history of stroke and is chronically impaired she would likely require a feeding tube placement if she is not progressing to comfort care. Following the clinical course it seems that the patient gets more agitated with the NG tube and that prevents improvement of her mental status. Prolonged delirium is a poor prognostic sign. Electrolyte abnormality including hypomagnesemia Plan and orders: Patient remained as MedSurg status, she would not have benefited from escalation of her care. CODE STATUS is already DO NOT RESUSCITATE, patient clearly expresses her wish for less aggressive medical care, clearly requests comfort like care and she seems consistent with her choice. Forcing therapies on her would actually maintain her delirium and would increase further risk of aspiration without much hope for meaningful recovery. I tried to reach her DPOA who is actually not a family member but a neighbor/friend, he did not answer the call. Will discuss goals of care level of care current situation and further ca re plan when he returns the call however in the meantime we will honor patient's wishes and choice for more comfort like care. Discontinue NG tube, currently the patient does not receive feeding and the NG tube makes her clearly uncomfortable therefore it will be discontinued. If the decision will be not to progress to comfort care then permanent feeding tube placement should be considered. If the plan of care will be comfort then dysphagia diet can be started. Palliative care consult. Continue IV hydration with dextrose containing solution Hypoglycemia protocol Continue current antibiotics, added fluconazole for fungal UTI Magnesium replacement Albumin infusion to improve volume status and decrease third spacing Discontinue restraints and try to use less restrictive measures for patient's comfort Case management consult, discharge planning. Patient would return back to [facility]. Level 3 follow-up Time: 45 minutes spent with patient's care, writing orders and coordination of her care with nursing
[2021-03-19] MEDS ORDERED: MAGNESIUM SULFATE 2 GRAM 2 GM/50 ML BAG IV ONE (06:57)
[2021-03-19 07:01] LABS: CALCIUM 7.3 mg/dL (8.5-10.3); CREATININE 0.5 mg/dL (0.4-1.0); POTASSIUM 2.9 mmol/L (3.5-5.0)
[2021-03-19] MEDS ORDERED: FLUCONAZOLE 200 MG/100 ML 50 ML IV SCH (09:00)
[2021-03-19] MEDS: HEPARIN 5,000 UNIT/ML VIAL SUBQ SCH ×2 (09:23→20:38)
[2021-03-19] MEDS: polyethylene glycoL 3350 17 GM PACKET PO SCH (09:29)
[2021-03-19] MEDS ORDERED: POTASSIUM PHOSPHATE 21 MMOL in SODIUM CHLORIDE 0.9% 250 ML IV ONE (10:00)
[2021-03-19] MEDS ORDERED: LORazepam 2 MG/ML VIAL SUBQ PRN (13:58)
[2021-03-19] MEDS ORDERED: MORPHINE SOL 10 MG/0.5 ML ORAL SYRINGE SL PRN (13:58)
[2021-03-19] MEDS: FLUCONAZOLE 200 MG/100 ML 100 ML IV SCH (14:13)
--- NOTE | 2021-03-19 15:08 | CONSULTATION NOTE ---
Palliative Care Consultation - Referral Referring Provider: Dr Frances Winters Time of Visit: [id number] Referral setting: Hospitalized patient Referral Reason: FTT/Sepsis/Advanced Care Planning - Information Sources Records reviewed: RN notes reviewed History/Review of Systems obtained from: Family (DPOA/friend, Cedrick), Nursing, Other (Hospitalist) Exam limitations: Clinical condition (Cognitive Impairment and Dowsing at times) - History of Present Illness Brief History of Present Illness: This is an 86-year-old female who was seen and evaluated today inpatient due to encephalopathy, severe sepsis, and failure to thrive with her friend/DPCedrick HUNTER at the bedside to determine advance care planning moving forward. The patient presented to the emergency department on 03/12/2021 from [facility] where she has been since December 2020 after she sustained a femur fracture and then was transferred back to [facility] for rehabilitation. The patient was noted to be diagnosed with a urinary tract i nfection while outpatient and was started on ciprofloxacin. Staff noticed that she had a change in mental status with decreased oral intake and was transferred to the emergency department for evaluation. The patient on initial presentation in the emergency department demonstrated a WBC of 32.7 with a left shift. She also demonstrated acute kidney injury and elevated lactic acid at 5. She was given IV fluids and started on IV antibiotic therapy. The patient has had a course that has been demonstrating hypoglycemia, metabolic acidosis in the setting of a urinary tract infection section as well as a sacral decubitus ulcer. Has been difficult to maintain her blood pressures despite giving Levoph ed overnight. She had an NG tube placed however, she became irritated and agitated with this in place and this was ultimately removed. She presently is on IV fluids only and is n.p.o. Today, the patient is more alert than she has been in recent days. Approximately 2 days ago she was more alert. Her friend/DPOACedrick is present at the bedtime with permission from hospitalist to the patient's overall continue to decline. He recognizes that she is not as stubborn and feisty as she usually is. The patient is seen resting in the hospital bed with Ramírez catheter to gravity. She is periodically dozing on and off. She is not able to directly answer questions and typically will respond "I do want to go into it at all." Pale and fragile. Medical/Surgical History - Past Medical History Cardiovascular: reports: Atrial fibrillation Respiratory: reports: None Neuro: CVA Endocrine/Autoimmune: reports: None GI: reports: Other : reports: Incontinence HEENT: reports: Glaucoma Psych: reports: None Musculoskeletal: reports: Osteoarthritis Derm: reports: None MRSA Hx?: No - Past Surgical History Ortho: reports: Other (femur repair 11/2020) /[employer]: reports: Hysterectomy - Substance History Use: Uses substance without health or social issues: NONE (unknown) Social History - Living Situation Living arrangement: halfway Support System: Patient has never and had no children. No local family. She has one cat, Nathalie that her friend/DPOA has been caring for since she has been in [facility] since Summer 2020. Patient has a large property on the [place] and has known her friend Cedrick since 1997. Cedrick reports that since she has been at [facility] she has lost strength and has not been eating the organic foods that she has had in the past. After she sustained a CVA in 2002 she was able to regain her strength and return home per friend's report. Family History - Family History Family History Comment/Other: Noncontributory Medications/Allergies - Medications Active Medication List: Active Medications Acetaminophen (Acetaminophen 325 Mg Tablet) 650 mg PO Q4HR PRN PRN Reason: Pain 1 to 4 Heparin Sodium (Porcine) (Heparin 5,000 Unit/Ml Vial) 5,000 unit SUBQ BID [facility] Last Admin: 03/19/21 09:23 Dose: 5,000 unit Documented by: Piperacillin Sod/Tazobactam (Sod 3.375 gm/ Sodium Chloride) 100 mls @ 25 mls/hr IV Q8H [facility] Last Infusion: 03/19/21 13:50 Dose: Infused Documented by: Potassium Chloride/Dextrose/Sod Cl (D5ns W/20 Meq Kcl) 1,000 mls @ 100 mls/hr IV .Q10H [facility] Last Admin: 03/19/21 11:24 Dose: 100 mls/hr Documented by: Fluconazole (Diflucan 200 Mg/100 Ml) 100 mls @ 100 mls/hr IV DAILY [facility] Stop: 03/21/21 09:59 Last Admin: 03/19/21 14:13 Dose: 100 mls/hr Documented by: Potassium Phosphate 21 mmol/ (Sodium Chloride) 257 mls @ 42.833 mls/hr IV ONCE ONE Stop: 03/19/21 15:59 Vancomycin HCl 1 gm/Vancomycin HCl 500 mg/ Sodium Chloride 500 mls @ 250 mls/hr IV Q24H [facility] Lorazepam (Lorazepam 2 Mg/Ml Vial) 1 mg SUBQ Q6H PRN PRN Reason: Anxiety/Agitation Morphine Sulfate (Morphine Merle 10 Mg/0.5 Ml Oral Syringe) 10 mg SL Q2HR PRN PRN Reason: PAIN Multi-Ingredient Ointment (Zinc Oxide 20% Oint 30 Gm Tube) 1 applic TOP PRN PRN PRN Reason: Skin Care Last Admin: 03/16/21 10:54 Dose: 1 applic Documented by: Ondansetron HCl (Ondansetron 4 Mg/2 Ml Vial) 4 mg IVP Q6HR PRN PRN Reason: Nausea / Vomiting Ondansetron HCl (Ondansetron Odt 4 Mg Tablet) 4 mg TL Q6HR PRN PRN Reason: Nausea / Vomiting Polyethylene Glycol (Polyethylene Glycol 3350 17 Gm Packet) 17 gm PO DAILY [facility] Last Admin: 03/19/21 09:29 Dose: Not Given Documented by: Sodium Chloride (Sodium Chloride Flush 0.9% 10 Ml Syringe) 10 ml IVP 0100,0900,1700 [facility] Last Admin: 03/19/21 09:29 Dose: 10 ml Documented by: Sodium Chloride (Sodium Chloride Flush 0.9% 10 Ml Syringe) 10 ml IVP PRN PRN PRN Reason: NEEDED PER PROVIDER ORDERS Last Admin: 03/16/21 18:39 Dose: 30 ml Documented by: Atorvastatin [Lipitor] 20 mg PO QPM 03/12/21 Ciprofloxacin HCl 500 mg PO BID 03/12/21 Mirtazapine [Remeron] 7.5 mg PO QPM 03/12/21 - Allergies Allergies/Adverse Reactions: Allergies Allergy/AdvReac Type Severity Reaction Status Date / Time No Known Drug Allergies Allergy Verified 03/12/21 09:23 Review of Systems - Constitutional Constitutional: reports: Fatigue, Poor appetite. denies: Fever - Ears, Nose & Throat Ears, Nose & Throat: denies: Hearing aids - Cardiovascular Cardiovascular: reports: Edema. denies: Chest pain - Respiratory Respiratory: reports: Cough (intermittent). denies: Sputum production - Gastrointestinal Gastrointestinal: reports: Diarrhea (history of diarrhea in setting of sepsis), Other (NPO, pulled out NGT). denies: Abdominal pain - Genitourinary Genitourinary: reports: Other (ramírez catheter in place) - Musculoskeletal Musculoskeletal: reports: Other (+right hand contracture) - Neurological Neurological: reports: General weakness, Memory problems - Psychiatric Psychiatric: reports: Depression - All Other Systems All Other Systems: reports: Reviewed and negative (ROS obtained from hospitalist, adelia and DPOA as patient is a poor historian due to her present mental state.) Physical Exam - Vital Signs Vital Signs: Vital Signs x48h Temp Pulse Resp BP Pulse Ox 03/19/21 13:00 36.3 C L 80 18 89/63 L 97 03/19/21 09:00 36.4 C L 66 18 113/56 L 96 - Physical Exam General Appearance: positive: Alert, Other (Intermittently somnolent) Eyes Bilateral: positive: Normal inspection ENT: positive: Other (slightly dry mucous membranes) Neck: positive: Trachea midline Cardiovascular: positive: Irregularly irregular Respiratory: positive: No respiratory distress Abdomen: positive: Non-tender, Soft, Nml bowel sounds, Other (ramírez catheter draining dark, cherelle colored urine) Skin: positive: Pallor Extremities: positive: Other (+anascara noted to BLE due to recent IV fluids; +contracture RUE) Neurologic/Psychiatric: positive: Disoriented to place, Disoriented to time, Weakness, Other (Unable to appropriately answer any questions when addressed to her) Palliative Care - POLST Patient has POLST: Yes POLST Status: DNR, Comfort Measures Pain: No pain Performance Status: Patient was ambulatory in November 2020 and then sustained a fall and femur fracture that resulted in SNF stay and not progressing. She is presently bedbound, n.p.o., incontinent of bowel and bladder. - Palliative Care Discussion: The patient unfortunately sustained a CVA approximately 2002 and was able to rebound and recover to a somnolence of independence and return to her beloved property on [facility]. However, she continued to gradually decline and age and ultimately sustained a fall and fracture with UTI and stone with stent placement in November 2020. Since that time, her friend/DPOA reports that she has not been able to rebound to her former feisty and stubborn self. He is very adamant that he does not wish for her to suffer and this is stated in her living will. They even attempted to have her return home but she was not able to transfer out of the car. Therefore, she has stayed at [facility] since her transfer from [facility]. The patient's friend/DPOA continues to hold on to hope that the patient will improve however, he recognizes after seeing her today that she is in a deteriorated state. Discussed that she pulled out her NG tube and presently is receiving artificial hydration via her PICC line.'s was explained that this is not sustainable and given that it is not her wishes to proceed with artificial nutrition by tube the patient's friend/DPOA wishes to focus on comfort measures with hospice services. Reviewed POLST and completed as DN AR with comfort measures and no artificial nutrition by tube. The patient's friend/DPOA is very emphatic about the patient not having any suffering. Discussed utilization of comfort measures morphine sulfate and lorazepam and in agreement to allow this to be initiated. Friend/DPOA, Cedrick villegas wishes the patient to ultimately return home but requires caregiving assistance that would be supplemented from his own self. Requested that social work provide assistance. If this is not feasible then Cedrick would be open to having the patient return to [facility] with hospice support. Recognizes that prognosis is days to weeks when reviewing today and acknowledges and appropriately grieving. Supportive empathetic listening provided. Results - Lab Results Fish Bones: 03/19/21 04:40 03/19/21 06:40 Lab and Imaging Results: Lab Results x24hrs 03/19/21 03/19/21 03/19/21 Range/Units 11:36 10:28 08:50 WBC (4.8-10.8) x10^3/uL RBC (4.20-5.40) 10^6/uL Hgb (12.0-16.0) g/dL Hct (37.0-47.0) % MCV (81.0-99.0) fL MCH (27.0-31.0) pg MCHC (32.0-36.0) g/dL RDW (12.0-15.0) % Plt Count (130-450) 10^3/uL MPV (7.9-10.8) fL Neut # (Auto) (1.5-6.6) 10^3/uL Lymph # (Auto) (1.5-3.5) 10^3/uL Elmore # (Auto) (0.0-1.0) 10^3/uL Eos # (Auto) (0.0-0.7) 10^3/uL Baso # (Auto) (0.0-0.1) 10^3/uL Absolute Nucleated RBC x10^3/uL Nucleated RBC % /100WBC Sodium (135-145) mmol/L Potassium (3.5-5.0) mmol/L Chloride (101-111) mmol/L Carbon Dioxide (21-32) mmol/L Anion Gap (6-13) BUN (6-20) mg/dL Creatinine (0.4-1.0) mg/dL Estimated GFR (MDRD) (>89) Glucose (70-100) mg/dL POC Whole Bld Glucose 76 79 72 (70 - 100) mg/dL Calcium (8.5-10.3) mg/dL Phosphorus (2.5-4.6) mg/dL Magnesium (1.7-2.8) mg/dL 03/19/21 03/19/21 03/19/21 Range/Units 06:40 06:40 05:53 WBC (4.8-10.8) x10^3/uL RBC (4.20-5.40) 10^6/uL Hgb (12.0-16.0) g/dL Hct (37.0-47.0) % MCV (81.0-99.0) fL MCH (27.0-31.0) pg MCHC (32.0-36.0) g/dL RDW (12.0-15.0) % Plt Count (130-450) 10^3/uL MPV (7.9-10.8) fL Neut # (Auto) (1.5-6.6) 10^3/uL Lymph # (Auto) (1.5-3.5) 10^3/uL Elmore # (Auto) (0.0-1.0) 10^3/uL Eos # (Auto) (0.0-0.7) 10^3/uL Baso # (Auto) (0.0-0.1) 10^3/uL Absolute Nucleated RBC x10^3/uL Nucleated RBC % /100WBC Sodium 141 (135-145) mmol/L Potassium 2.9 L (3.5-5.0) mmol/L Chloride 115 H (101-111) mmol/L Carbon Dioxide 17 L (21-32) mmol/L Anion Gap 9.0 (6-13) BUN 12 (6-20) mg/dL Creatinine 0.5 (0.4-1.0) mg/dL Estimated GFR (MDRD) 117 (>89) Glucose 90 (70-100) mg/dL POC Whole Bld Glucose 63 L (70 - 100) mg/dL Calcium 7.3 L (8.5-10.3) mg/dL Phosphorus 2.1 L (2.5-4.6) mg/dL Magnesium (1.7-2.8) mg/dL 03/19/21 03/19/21 03/19/21 Range/Units 05:16 04:40 04:40 WBC 15.2 H (4.8-10.8) x10^3/uL RBC 3.36 L (4.20-5.40) 10^6/uL Hgb 9.4 L (12.0-16.0) g/dL Hct 29.0 L (37.0-47.0) % MCV 86.3 (81.0-99.0) fL MCH 28.0 (27.0-31.0) pg MCHC 32.4 (32.0-36.0) g/dL RDW 17.9 H (12.0-15.0) % Plt Count 196 (130-450) 10^3/uL MPV 10.5 (7.9-10.8) fL Neut # (Auto) 13.3 H (1.5-6.6) 10^3/uL Lymph # (Auto) 1.0 L (1.5-3.5) 10^3/uL Elmore # (Auto) 0.6 (0.0-1.0) 10^3/uL Eos # (Auto) 0.3 (0.0-0.7) 10^3/uL Baso # (Auto) 0.1 (0.0-0.1) 10^3/uL Absolute Nucleated RBC 0.00 x10^3/uL Nucleated RBC % 0.0 /100WBC Sodium 139 (135-145) mmol/L Potassium 3.9 (3.5-5.0) mmol/L Chloride 118 H (101-111) mmol/L Carbon Dioxide 17 L (21-32) mmol/L Anion Gap 4.0 L (6-13) BUN 12 (6-20) mg/dL Creatinine 0.5 (0.4-1.0) mg/dL Estimated GFR (MDRD) 117 (>89) Glucose 335 H (70-100) mg/dL POC Whole Bld Glucose 70 (70 - 100) mg/dL Calcium 6.7 L (8.5-10.3) mg/dL Phosphorus 2.0 L (2.5-4.6) mg/dL Magnesium 1.5 L (1.7-2.8) mg/dL 03/19/21 03/19/21 03/19/21 Range/Units 01:06 00:44 00:28 WBC (4.8-10.8) x10^3/uL RBC (4.20-5.40) 10^6/uL Hgb (12.0-16.0) g/dL Hct (37.0-47.0) % MCV (81.0-99.0) fL MCH (27.0-31.0) pg MCHC (32.0-36.0) g/dL RDW (12.0-15.0) % Plt Count (130-450) 10^3/uL MPV (7.9-10.8) fL Neut # (Auto) (1.5-6.6) 10^3/uL Lymph # (Auto) (1.5-3.5) 10^3/uL Elmore # (Auto) (0.0-1.0) 10^3/uL Eos # (Auto) (0.0-0.7) 10^3/uL Baso # (Auto) (0.0-0.1) 10^3/uL Absolute Nucleated RBC x10^3/uL Nucleated RBC % /100WBC Sodium (135-145) mmol/L Potassium (3.5-5.0) mmol/L Chloride (101-111) mmol/L Carbon Dioxide (21-32) mmol/L Anion Gap (6-13) BUN (6-20) mg/dL Creatinine (0.4-1.0) mg/dL Estimated GFR (MDRD) (>89) Glucose (70-100) mg/dL POC Whole Bld Glucose 134 H 62 L 62 L (70 - 100) mg/dL Calcium (8.5-10.3) mg/dL Phosphorus (2.5-4.6) mg/dL Magnesium (1.7-2.8) mg/dL 03/18/21 03/18/21 Range/Units 19:05 18:22 WBC (4.8-10.8) x10^3/uL RBC (4.20-5.40) 10^6/uL Hgb (12.0-16.0) g/dL Hct (37.0-47.0) % MCV (81.0-99.0) fL MCH (27.0-31.0) pg MCHC (32.0-36.0) g/dL RDW (12.0-15.0) % Plt Count (130-450) 10^3/uL MPV (7.9-10.8) fL Neut # (Auto) (1.5-6.6) 10^3/uL Lymph # (Auto) (1.5-3.5) 10^3/uL Elmore # (Auto) (0.0-1.0) 10^3/uL Eos # (Auto) (0.0-0.7) 10^3/uL Baso # (Auto) (0.0-0.1) 10^3/uL Absolute Nucleated RBC x10^3/uL Nucleated RBC % /100WBC Sodium (135-145) mmol/L Potassium (3.5-5.0) mmol/L Chloride (101-111) mmol/L Carbon Dioxide (21-32) mmol/L Anion Gap (6-13) BUN (6-20) mg/dL Creatinine (0.4-1.0) mg/dL Estimated GFR (MDRD) (>89) Glucose (70-100) mg/dL POC Whole Bld Glucose 102 H 59 L* (70 - 100) mg/dL Calcium (8.5-10.3) mg/dL Phosphorus (2.5-4.6) mg/dL Magnesium (1.7-2.8) mg/dL Impression and Recommendations - Palliative Care Impression: This is an 86-year-old female with encephalopathy, severe sepsis, atrial fibrillation who is failing to thrive during her present acute hospitalization with history of CVA. Patient's friend/DPOA wishes to focus on comfort measures and although remaining with some marginal hope that the patient will improve recognizes that she is declining and wishes to transition to hospice services ultimately with a goal to return home and if that is not feasible to then return to [facility] for caregiving support. Palliative care will continue to provide support until the patient transitions to hospice services. Recommendations/Counseling Done: 1. Severe sepsis. Was on Levophed. WBC has been slowly decreasing. However, she continues to present with failure to thrive. Potentially due to sacral decubitus ulcer versus UTI. Presently being followed by hospitalist for management and continues on IV antibiotics. 2. Protein calorie malnutrition. Patient presently n.p.o. Did not tolerate NG tube placement. Presently on IV hydration. Given the patient's underlying comorbidities and lack of oral intake likely prognosis is days to weeks and friend/DPOA recognizes this. Patient's friend/DPOA does not wish to have artificial nutrition by tube be placed. We will continue to support with IV hydration until the patient has been discharged per the friend/DPOA's request with hospice services. 3.Encephalopathy. Underlying severe sepsis. Of note patient has history of CVA with residual effects. Patient has waxing and waning with her level of alertness And is not at the appropriate status to be alert enough to have TOY STUFFER evaluate. Presently being followed by hospitalist. 4.CVA with residual effects. Patient sustained CVA in 2002 with residual right- sided weakness. Chronic. Progressive. Fall precautions. Potential for CVAT contributing to some underlying cognitive deficits. Supportive listening provided to friend/DPOA. 5. Advanced care planning. Lengthy discussion had with patient's friend/DPOA regarding goals of care. Patient's friend/DPOA reports that the patient would not want heroics and would want to be made comfortable however he does not wish to "give up hope." Given the best course of action given prognosis of days to weeks friend/DPOA wishes to make a transition to hospice services with support ideally within the home environment with additional caregiving support outside of himself and if this is not feasible then to return back to [facility] with hospice services. Lengthy discussion regarding progressive course after someone has had a CVA with under lying effects as well as present hospitalization and clinical findings to support hospice diagnosis and prognosis with questions answered and addressed to friend/DPOA. Friend/DPOA wishes to continue IV antibiotics and IV hydration until discharge with hospice and to initiate comfort medications morphine and lorazapem which was reviewed with hospitalist. Requested that Social Work assist friend/DPOA with caregiving support resources. Total time spent 60 minutes with greater than 50% of this spent in counseling and coordination of care with friend/DPOA, nursing, hospitalist and SW; review of POLST with DPOA; review of hispice philosophy and escalation vs de-escalation of care; review of pain and symptom management and anticipatory guidance. Disclaimer: The chart note was formulated using voice recognition technology and unfortunately sound alike errors may occur.
[2021-03-19] MEDS ORDERED: GI COCKTAIL 120 ML BOTTLE PO PRN (20:50)
[2021-03-19] MEDS ORDERED: CARBOXYMETHYLCELLULOSE OPHTH DROPS EACHEYE PRN (20:50)
[2021-03-19] MEDS ORDERED: traZODone 50 MG TABLET PO PRN (20:50)
[2021-03-19] MEDS ORDERED: VANCOMYCIN INJ 1 GM, VANCOMYCIN INJ 500 MG in SODIUM CHLORIDE 0.9% 500 ML IV SCH (21:00)
[2021-03-19] MEDS ORDERED: SENNA 8.6 MG TABLET PO PRN (21:03)
[2021-03-20] MEDS: SODIUM CHLORIDE FLUSH 0.9% 10 ML SYRINGE IVP SCH ×3 (01:08→21:04)
--- NOTE | 2021-03-20 01:10 | PROVIDER PROGRESS NOTE ---
Hospitalist Cross-cover Note - Cross-Cover Note Cross-Cover Note: Overnight cross cover/Nonbillable service Reason for follow-up: Patient was evaluated by palliative care and goals of care changed to comfort care. I received a call from patient's nurse to address current active medical orders which include IV antibiotics, IV hydration, lab work, n.p.o. order. Reviewed the chart including chart notes, prior work-up and history, daily labs and vitals. Assessment/diagnoses/active issues Comfort care/end-of-life care Encephalopathy/Prolonged delirium Dysphagia/history of stroke Sepsis/multifactorial including UTI, pneumonia Chronic impairment/both cognitive and physical Hypoglycemia Severe malnutrition and hypoalbuminemia Plan and orders: Patient already finished reasonable length of antibiotic courses therefore IV antibiotics will be discontinued. Fluconazole was ordered to complete 3 days course that will be finished and will stop. In a comfort care patient n.p.o. status would not be needed therefore will start dysphagia diet with aspiration precautions and accept the risk of aspiration as that is consistent with comfort care. We will continue IV hydration for hypoglycemia. Continue hypoglycemia protocol. Discontinue active therapy and lab orders and change vital signs and other orders to be consistent with comfort care. Morphine and hospice medications were already entered.
[2021-03-20] MEDS: polyethylene glycoL 3350 17 GM PACKET PO SCH (07:34)
[2021-03-20] MEDS: FLUCONAZOLE 200 MG/100 ML 100 ML IV SCH (08:57)
[2021-03-20] MEDS: D5NS W/20 MEQ KCL 1,000 ML IV SCH ×2 (09:00→20:03)
--- NOTE | 2021-03-20 12:49 | CONSULTATION NOTE ---
Palliative Care Follow Up - Referral Referring Provider: Dr Frances Winters Time of Visit: [id number] Referral setting: Hospitalized patient Referral Reason: FTT/Sepsis - Information Sources Records reviewed: Previous records reviewed, Other History/Review of Systems obtained from: Nursing, Other (Anthropology Instructor) Exam limitations: Clinical condition (somnolence) - History of Present Illness Update Brief HPI Update: This is an 86 year old female who is seen in follow-up today for encephalopathy, severe sepsis and failure to thrive with history of CVA with residual effects. Yesterday, the patient's friend/DPOA made the decision to move forward with hospice services given the patient's failure to thrive in the hospital from admission on 03/12/2021 from [facility]. She is comfort focused care and her antibiotics have been discontinued as the course has been completed for sepsis. She continues with IV fluids due to hypokalemia. She has been advanced from NPO to dysphagia diet for pleasure feeds but has been to somnolent to consume any food. Today she is more somnolent and responded via sternal rub to barely open her eyes and ask "what?" Resting in her hospital bed she appears frail and without acute distress present. Past Medical History: Past medical history of Atrial fibrillation,CVA, glaucoma, incontinence, osteoarthritis, femur repair 11/2020. Social History - Living Situation Living arrangement: [facility] Support System: Patient has never and had no children. No local family. She has one cat, Nathalie that her friend/DPOA has been caring for since she has been in [facility] since Summer 2020. Patient has a large [place] on the [place] and has known her friend Cedrick since 1997. Cedrick reports that since she has been at [facility] she has lost strength and has not been eating the organic foods that she has had in the past. After she sustained a CVA in 2002 she was able to regain her strength and return home per friend's report. Medications/Allergies - Medications Active Medication List: Active Medications Acetaminophen (Acetaminophen 325 Mg Tablet) 650 mg PO Q4HR PRN PRN Reason: Pain 1 to 4 Carboxymethylcellulose (Carboxymethylcellulose Ophth Drops) 1 drops EACHEYE QID PRN PRN Reason: Dry Eye Potassium Chloride/Dextrose/Sod Cl (D5ns W/20 Meq Kcl) 1,000 mls @ 100 mls/hr IV .Q10H [facility] Last Admin: 03/20/21 09:00 Dose: 100 mls/hr Documented by: Fluconazole (Diflucan 200 Mg/100 Ml) 100 mls @ 100 mls/hr IV DAILY [facility] Stop: 03/21/21 09:59 Last Infusion: 03/20/21 10:24 Dose: Infused Documented by: Lorazepam (Lorazepam 2 Mg/Ml Vial) 1 mg SUBQ Q6H PRN PRN Reason: Anxiety/Agitation Morphine Sulfate (Morphine Merle 10 Mg/0.5 Ml Oral Syringe) 10 mg SL Q2HR PRN PRN Reason: PAIN Multi-Ingredient Mouthwash/Gargle (Gi Cocktail 120 Ml Bottle) 5 ml PO Q2H PRN PRN Reason: Mucositis Multi-Ingredient Ointment (Zinc Oxide 20% Oint 30 Gm Tube) 1 applic TOP PRN PRN PRN Reason: Skin Care Last Admin: 03/16/21 10:54 Dose: 1 applic Documented by: Ondansetron HCl (Ondansetron 4 Mg/2 Ml Vial) 4 mg IVP Q6HR PRN PRN Reason: Nausea / Vomiting Ondansetron HCl (Ondansetron Odt 4 Mg Tablet) 4 mg TL Q6HR PRN PRN Reason: Nausea / Vomiting Polyethylene Glycol (Polyethylene Glycol 3350 17 Gm Packet) 17 gm PO DAILY [facility] Last Admin: 03/20/21 07:34 Dose: Not Given Documented by: Senna (Senna 8.6 Mg Tablet) 8.6 mg PO BID PRN PRN Reason: Constipation Sodium Chloride (Sodium Chloride Flush 0.9% 10 Ml Syringe) 10 ml IVP 0100,0900,1700 [facility] Last Admin: 03/20/21 08:59 Dose: 10 ml Documented by: Sodium Chloride (Sodium Chloride Flush 0.9% 10 Ml Syringe) 10 ml IVP PRN PRN PRN Reason: NEEDED PER PROVIDER ORDERS Last Admin: 03/16/21 18:39 Dose: 30 ml Documented by: Trazodone HCl (Trazodone 50 Mg Tablet) 25 mg PO QPM PRN PRN Reason: Insomnia Atorvastatin [Lipitor] 20 mg PO QPM 03/12/21 Ciprofloxacin HCl 500 mg PO BID 03/12/21 Mirtazapine [Remeron] 7.5 mg PO QPM 03/12/21 - Allergies Allergies/Adverse Reactions: Allergies Allergy/AdvReac Type Severity Reaction Status Date / Time No Known Drug Allergies Allergy Verified 03/12/21 09:23 Review of Systems - Constitutional Constitutional: reports: Fatigue, Poor appetite (see HPI). denies: Fever - Ears, Nose & Throat Ears, Nose & Throat: denies: Hearing aids - Cardiovascular Cardiovascular: reports: Edema - Respiratory Respiratory: reports: Cough (intermittent). denies: Sputum production - Gastrointestinal Gastrointestinal: reports: Diarrhea (history of diarrhea in setting of sepsis), Other (no longer with NGT and on dysphagia diet for comfort). denies: Abdominal pain - Genitourinary Genitourinary: reports: Other (ramírez catheter in place) - Musculoskeletal Musculoskeletal: reports: Other (+right hand contracture) - Neurological Neurological: reports: General weakness, Memory problems - Psychiatric Psychiatric: reports: Depression - All Other Systems All Other Systems: reports: Reviewed and negative Physical Exam - Physical Exam General Appearance: positive: No acute distress, Other (Required sternal rub to arouse) Eyes Bilateral: positive: Normal inspection ENT: positive: Other (slightly dry mucous membranes) Neck: positive: Trachea midline Cardiovascular: positive: Irregularly irregular Respiratory: positive: No respiratory distress, Rhonchi (BLL that clears with cough) Abdomen: positive: Non-tender, Soft, Nml bowel sounds, Other (ramírez catheter draining dark, cherelle colored urine) Skin: positive: Pallor Extremities: positive: Other (+anascara noted to BLE due to recent IV fluids; +contracture RUE) Neurologic/Psychiatric: positive: Disoriented to person, Disoriented to place, Disoriented to time, Weakness, Other (somnolent, difficult to arouse) Palliative Care - POLST Patient has POLST: Yes POLST Status: DNR, Comfort Measures Pain: No pain - Palliative Care Discussion: Patient unfortunately has had significant functional decline after she sustained a femur fracture in November 2020 and subsequently repair with skilled rehab. The patient was unable to return back to her baseline function. During this acute hospitalization she does not meet progress in her functional status and her friend/DPOA is honoring her wishes to focus on comfort measures and transitioning to hospice services. Presently, the patient's friend/DPOA is open to having the patient return to [facility] while he works on attainment of caregivers in order to have the patient ideally at home with hospice support. Presently, the patient is discharged his plan to discharge to [facility] tomorrow and be admitted to hospice services in the afternoon. She continues to demonstrate signs of decline with a lack of engagement, somnolence, pallor, and no oral intake. Would continue to expect a prognosis of days to weeks. Results - Lab Results Lab results reviewed: Yes Fish Bones: 03/19/21 04:40 03/19/21 06:40 Lab and Imaging Results: Lab Results x24hrs 03/19/21 03/19/21 03/18/21 Range/Units 23:42 18:21 11:46 POC Whole Bld Glucose 70 83 81 (70 - 100) mg/dL Impression and Recommendations - Palliative Care Impression: This is an 86-year-old female with encephalopathy, severe sepsis, atrial fibrillation who is failing to thrive during her present acute hospitalization with history of CVA. Patient's friend/DPOA wishes to focus on comfort measures and although remaining with some marginal hope that the patient will improve recognizes that she is declining and wishes to transition to hospice services ultimately with a goal to return home to and presently will transfer to [facility] in interim. Palliative care will continue to provide support until the patient transitions to hospice services. Recommendations/Counseling Done: 1. Severe sepsis. Was on Levophed. WBC has been slowly decreasing. However, she continues to present with failure to thrive. Potentially due to sacral decubitus ulcer versus UTI. s/p IV antibiotic therapy. Presently being followed by hospitalist for management. 2. Protein calorie malnutrition. Did not tolerate NG tube placement. On dysphagia diet for comfort. Continued prognosis with lack of oral intake likely prognosis is days to weeks. Patient's friend/DPOA does not wish to have artificial nutrition by tube be placed. 3.Encephalopathy. Underlying severe sepsis. Of note patient has history of CVA with residual effects. More sommnolent than she was during evaluation yesterday. Presently being followed by hospitalist. 4. Advanced care planning. POLST as DNAR with comfort measures. Plan to discharge to [facility] tomorrow and then be admitted to hospice services. Friend/DPOA wishes to find caregiving support to ultimtely bring the patient home to on her property and hospice would be able to assist with this transfer once caregivers have been obtained. Focus remains on comfort measures. Total time spent 15 minutes with greater than 50% of the spent in counseling and coordination of care with the hospitalist, evaluation of patient, review of medical record, and message left for patient's friend/YUSEF Philip. Disclaimer: The chart note was formulated using voice recognition technology and unfortunately sound alike errors may occur.
--- NOTE | 2021-03-20 14:18 | PROVIDER PROGRESS NOTE ---
Assessment/Plan - Problem List (1) Comfort measures only status Assessment/Plan: 1, Comfort care/end-of-life care Patient had a palliative care consult, patient is scheduled to return [facility] To be follow-up with hospice care. [facility] Can not take the patient on today. Rapid COVID-19 test is ordered by [facility] requirement. hospice care will follow up care for patient on tomorrow 2, Sepsis/multifactorial including UTI, pneumonia Patient was admitted for severe sepsis. Now patient is comfortable care. Antibiotics was finished in previous and focus on comfort care. 3, Encephalopathy/Prolonged delirium Chronic 4, Dysphagia History dysphagia, likely from patient stroke. Patient had dysphagia diet o rdered but patient had very poor oral intake. We will continue nursing care, Feeding patient as patient needed. 5, history of stroke As patient history 6, Chronic impairment on both cognitive and physical As patient history, patient presents chronic impaired cognitively and physically ability. 7, Anorexia with Hypoglycemia Episodes Patient has very poor oral intake, has hypoglycemia episodes. We will continue D5 fluids IVF in the hospital 8, Severe malnutrition and hypoalbuminemia As patient's history, patient had severe malnutrition and anorexia - Current Meds Current Meds: Current Medications Generic Name Dose Route Start Last Admin Trade Name Freq PRN Reason Stop Dose Admin Potassium Chloride/Dextrose/Sod Cl 1,000 mls @ 100 mls/hr 03/18/21 14:47 03/20/21 09:00 D5ns W/20 Meq Kcl IV 100 mls/hr .Q10H [facility] Administration Fluconazole 100 mls @ 100 mls/hr 03/19/21 09:00 03/20/21 10:24 Diflucan 200 Mg/100 Ml IV 03/21/21 09:59 Infused DAILY [facility] Infusion Multi-Ingredient Ointment 1 applic 03/13/21 10:42 03/16/21 10:54 Zinc Oxide 20% Oint 30 Gm Tube TOP 1 applic PRN PRN Administration Skin Care Polyethylene Glycol 17 gm 03/13/21 12:00 03/20/21 07:34 Polyethylene Glycol 3350 17 Gm Packet PO Not Given DAILY [facility] Sodium Chloride 10 ml 03/12/21 17:00 03/20/21 08:59 Sodium Chloride Flush 0.9% 10 Ml Syringe IVP 10 ml 0100,0900,1700 [facility] Administration Sodium Chloride 10 ml 03/12/21 12:26 03/16/21 18:39 Sodium Chloride Flush 0.9% 10 Ml Syringe IVP 30 ml PRN PRN Administration NEEDED PER PROVIDER ORDERS - Lab Result Fish Bone Diagrams: 03/19/21 04:40 03/19/21 06:40 - Additional Planning My Orders: My Active Orders 03/20/21 Hospice Referral for Post-Discharge Services [CONS] Routine 03/20/21 13:40 RESPIRATORY PCR PANEL Stat Subjective - Subjective Nursing Reports: Confused Objective Vital Signs: Vital Signs - 24 hr 03/19/21 03/19/21 03/19/21 15:41 15:49 20:53 Temperature 36.3 C L 36.3 C L 36.7 C Heart Rate [ 62 108 H 72 Monitoring electrodes] Respiratory 18 18 18 Rate Blood Pressure 93/49 L 103/57 L 84/65 L [Left Brachial artery] O2 Saturation 97 96 100 03/19/21 23:43 Temperature 36.2 C L Heart Rate [ 127 H Monitoring electrodes] Respiratory 20 Rate Blood Pressure 114/59 L [Left Brachial artery] O2 Saturation 98 Oxygen O2 Source Room air Oxygen Flow Rate 2 I&O (Last 24 Hrs): Intake and Output Totals x24h 03/18/21 03/19/21 03/20/21 23:59 23:59 23:59 Intake Total 2255.020 5146.167 1100 Output Total 705 150 100 Balance 9715.762 9644.167 1000 General: Alert, No acute distress HEENT: Atraumatic Neck: Supple Lymphatic: no adenopathy Neuro: Alert, Disoriented Cardiovascular: Regular rate, Normal S1 Respiratory: Chest non-tender, No respiratory distress Abdomen: Normal bowel sounds, Soft Extremities: Normal pulses - Results Results: Laboratory Results WBC 15.2 x10^3/uL (4.8-10.8) H 03/19/21 04:40 RBC 3.36 10^6/uL (4.20-5.40) L 03/19/21 04:40 Hgb 9.4 g/dL (12.0-16.0) L 03/19/21 04:40 Hct 29.0 % (37.0-47.0) L 03/19/21 04:40 MCV 86.3 fL (81.0-99.0) 03/19/21 04:40 MCH 28.0 pg (27.0-31.0) 03/19/21 04:40 MCHC 32.4 g/dL (32.0-36.0) 03/19/21 04:40 RDW 17.9 % (12.0-15.0) H 03/19/21 04:40 Plt Count 196 10^3/uL (130-450) 03/19/21 04:40 MPV 10.5 fL (7.9-10.8) 03/19/21 04:40 Neut # (Auto) 13.3 10^3/uL (1.5-6.6) H 03/19/21 04:40 Lymph # (Auto) 1.0 10^3/uL (1.5-3.5) L 03/19/21 04:40 Evans # (Auto) 0.6 10^3/uL (0.0-1.0) 03/19/21 04:40 Eos # (Auto) 0.3 10^3/uL (0.0-0.7) 03/19/21 04:40 Baso # (Auto) 0.1 10^3/uL (0.0-0.1) 03/19/21 04:40 Absolute Nucleated RBC 0.00 x10^3/uL 03/19/21 04:40 Total Counted 100 03/17/21 05:10 Band Neuts % (Manual) 0 % (0-10) 03/17/21 05:10 Abnorm Lymph % (Manual) 0 % 03/17/21 05:10 Nucleated RBC % 0.0 /100WBC 03/19/21 04:40 Neutrophils # (Manual) 18.9 10^3/uL (1.5-6.6) H 03/17/21 05:10 Lymphocytes # (Manual) 3.0 10^3/uL (1.5-3.5) 03/17/21 05:10 Monocytes # (Manual) 0.7 10^3/uL (0.0-1.0) 03/17/21 05:10 Eosinophils # (Manual) 0.5 10^3/uL (0-0.7) 03/17/21 05:10 Basophils # (Manual) 0.0 10^3/uL (0-0.1) 03/17/21 05:10 Differential Comment MANUAL DIFFERENTIAL 03/17/21 05:10 Manual Slide Review Indicated 03/12/21 10:38 WBC Morphology NORMAL APPEARANCE (NORMAL) 03/17/21 05:10 Platelet Estimate NORMAL (130-450,000) (NORMAL) 03/17/21 05:10 Platelet Morphology NORMAL APPEARANCE (NORMAL) 03/17/21 05:10 RBC Morph Micro Appear 1+ AURELIA CELLS (NORMAL) 03/17/21 05:10 PT 17.7 secs (9.9-12.6) H 03/12/21 13:10 INR 1.6 (0.8-1.2) H 03/12/21 13:10 VBG pH 7.382 (7.31-7.41) 03/16/21 13:15 Ionized Calcium 1.16 mmol/L (1.15-1.33) 03/16/21 13:15 Sodium 141 mmol/L (135-145) 03/19/21 06:40 Potassium 2.9 mmol/L (3.5-5.0) L 03/19/21 06:40 Chloride 115 mmol/L (101-111) H 03/19/21 06:40 Carbon Dioxide 17 mmol/L (21-32) L 03/19/21 06:40 Anion Gap 9.0 (6-13) 03/19/21 06:40 BUN 12 mg/dL (6-20) 03/19/21 06:40 Creatinine 0.5 mg/dL (0.4-1.0) 03/19/21 06:40 Estimated GFR (MDRD) 117 (>89) 03/19/21 06:40 Glucose 90 mg/dL (70-100) 03/19/21 06:40 POC Whole Bld Glucose 70 mg/dL (70 - 100) 03/19/21 23:42 Lactic Acid 1.1 mmol/L (0.5-2.2) 03/18/21 10:03 Calcium 7.3 mg/dL (8.5-10.3) L 03/19/21 06:40 Phosphorus 2.1 mg/dL (2.5-4.6) L 03/19/21 06:40 Magnesium 1.5 mg/dL (1.7-2.8) L 03/19/21 04:40 Total Bilirubin 0.9 mg/dL (0.2-1.0) 03/18/21 06:00 AST 44 IU/L (10-42) H 03/18/21 06:00 ALT 51 IU/L (10-60) 03/18/21 06:00 Alkaline Phosphatase 131 IU/L (42-121) H 03/18/21 06:00 Total Creatine Kinase 12 IU/L (22-269) L 03/12/21 15:08 Troponin I High Sens 63.9 ng/L (2.3-14.8) H* 03/12/21 15:08 B-Natriuretic Peptide 230 pg/mL (5-100) H 03/12/21 11:31 Total Protein 4.2 g/dL (6.7-8.2) L 03/18/21 06:00 Albumin 1.7 g/dL (3.2-5.5) L 03/18/21 06:00 Globulin 2.5 g/dL (2.1-4.2) 03/18/21 06:00 Albumin/Globulin Ratio 0.7 (1.0-2.2) L 03/18/21 06:00 Prealbumin 3 mg/dL (18-45) L 03/18/21 06:00 Lipase 40 U/L (22-51) 03/12/21 11:31 Urine Color BROWN 03/17/21 11:25 Urine Clarity CLOUDY (CLEAR) 03/17/21 11:25 Urine pH 5.5 PH (5.0-7.5) 03/17/21 11:25 Ur Specific [place] 1.025 (1.002-1.030) 03/17/21 11:25 Urine Protein 100 mg/dL (NEGATIVE) H 03/17/21 11:25 Urine Glucose (UA) NEGATIVE mg/dL (NEGATIVE) 03/17/21 11:25 Urine Ketones NEGATIVE mg/dL (NEGATIVE) 03/17/21 11:25 Urine Occult Blood LARGE (NEGATIVE) H 03/17/21 11:25 Urine Nitrite NEGATIVE (NEGATIVE) 03/17/21 11:25 Urine Bilirubin NEGATIVE (NEGATIVE) 03/17/21 11:25 Urine Urobilinogen 0.2 (NORMAL) E.U./dL (NORMAL) 03/17/21 11:25 Ur Leukocyte Esterase LARGE (NEGATIVE) H 03/17/21 11:25 Urine RBC TNTC /HPF (0-5) H 03/17/21 11:25 Urine WBC 6-10 /HPF (0-5) H 03/17/21 11:25 Ur Squamous Epith Cells NONE SEEN (<= Few) 03/17/21 11:25 Urine Bacteria Few /HPF (None Seen) 03/17/21 11:25 Urine Yeast PRESENT 03/17/21 11:25 Ur Microscopic Review INDICATED 03/12/21 22:48 Urine Culture Comments INDICATED 03/17/21 11:25 Urine Creatinine 31.9 mg/dL 03/17/21 11:25 Urine Sodium 64.0 mmol/L 03/17/21 11:25 Urine Potassium 46.1 mmol/L 03/17/21 11:25 Nasal Adenovirus (PCR) NOT DETECTED 03/12/21 14:27 Nasal B. parapertussis DNA (PCR) NOT DETECTED 03/12/21 14:27 Nasal Coronavir 229E PCR NOT DETECTED 03/12/21 14:27 Nasal Coronavir HKU1 PCR NOT DETECTED 03/12/21 14:27 Nasal Coronavir NL63 PCR NOT DETECTED 03/12/21 14:27 Nasal Coronavir OC43 PCR NOT DETECTED 03/12/21 14:27 Nasal Enterovir/Rhinovir PCR NOT DETECTED 03/12/21 14:27 Nasal Influenza B PCR NOT DETECTED 03/12/21 14:27 Nasal Influenza A PCR NOT DETECTED 03/12/21 14:27 Nasal Parainfluen 1 PCR NOT DETECTED 03/12/21 14:27 Nasal Parainfluen 2 PCR NOT DETECTED 03/12/21 14:27 Nasal Parainfluen 3 PCR NOT DETECTED 03/12/21 14:27 Nasal Parainfluen 4 PCR NOT DETECTED 03/12/21 14:27 Nasal RSV (PCR) NOT DETECTED 03/12/21 14:27 Nasal Screen MRSA (PCR) NEGATIVE (NEGATIVE) 03/12/21 14:15 Nasal B.pertussis DNA PCR NOT DETECTED 03/12/21 14:27 Nasal C.pneumoniae (PCR) NOT DETECTED 03/12/21 14:27 Brian Human Metapneumo PCR NOT DETECTED 03/12/21 14:27 Nasal M.pneumoniae (PCR) NOT DETECTED 03/12/21 14:27 Nasal SARS-CoV-2 (PCR) NOT DETECTED 03/12/21 14:27 Last Dose Date Not Reportable 03/17/21 09:53 Last Dose Time Not Reportable 03/17/21 09:53 Vancomycin Trough 11.3 ug/mL (10.0-20.0) 03/17/21 09:53 - Procedures Procedures: Procedures EXCISION OF ASCENDING COLON, ENDO, DIAGN (07/05/16) EXCISION OF DESCENDING COLON, ENDO, DIAGN (07/05/16) EXCISION OF RECTUM, ENDO, DIAGN (07/05/16) EXCISION OF SIGMOID COLON, ENDO, DIAGN (07/05/16) EXCISION OF TRANSVERSE COLON, ENDO, DIAGN (07/05/16) Sepsis Event Note (H) - Evaluation Current Stage of Sepsis: Severe sepsis Possible source of Sepsis: positive: Genitourinary - Sepsis Criteria Sepsis Criteria: Recorded Heart Rate greater than 90 bpm, WBC count greater than 12,000 or less than 4000, MEDICAL RECORD TECHNICIAN: altered consciousness (unrelated to primary neuro pathology), Renal: urine output less than 0.5ml/kg/hr for 2 hours or creatinine gr, Metabolic: lactate > 2 mmol/L ABX Reporting Has patient been on IV antibiotics over the past 48 hours?: No Current Medications - Current Medications Current Medications: Active Medications Acetaminophen (Acetaminophen 325 Mg Tablet) 650 mg PO Q4HR PRN PRN Reason: Pain 1 to 4 Carboxymethylcellulose (Carboxymethylcellulose Ophth Drops) 1 drops EACHEYE QID PRN PRN Reason: Dry Eye Potassium Chloride/Dextrose/Sod Cl (D5ns W/20 Meq Kcl) 1,000 mls @ 100 mls/hr IV .Q10H [facility] Last Admin: 03/20/21 09:00 Dose: 100 mls/hr Documented by: Fluconazole (Diflucan 200 Mg/100 Ml) 100 mls @ 100 mls/hr IV DAILY [facility] Stop: 03/21/21 09:59 Last Infusion: 03/20/21 10:24 Dose: Infused Documented by: Lorazepam (Lorazepam 2 Mg/Ml Vial) 1 mg SUBQ Q6H PRN PRN Reason: Anxiety/Agitation Morphine Sulfate (Morphine Merle 10 Mg/0.5 Ml Oral Syringe) 10 mg SL Q2HR PRN PRN Reason: PAIN Multi-Ingredient Mouthwash/Gargle (Gi Cocktail 120 Ml Bottle) 5 ml PO Q2H PRN PRN Reason: Mucositis Multi-Ingredient Ointment (Zinc Oxide 20% Oint 30 Gm Tube) 1 applic TOP PRN PRN PRN Reason: Skin Care Last Admin: 03/16/21 10:54 Dose: 1 applic Documented by: Ondansetron HCl (Ondansetron 4 Mg/2 Ml Vial) 4 mg IVP Q6HR PRN PRN Reason: Nausea / Vomiting Ondansetron HCl (Ondansetron Odt 4 Mg Tablet) 4 mg TL Q6HR PRN PRN Reason: Nausea / Vomiting Polyethylene Glycol (Polyethylene Glycol 3350 17 Gm Packet) 17 gm PO DAILY [facility] Last Admin: 03/20/21 07:34 Dose: Not Given Documented by: Senna (Senna 8.6 Mg Tablet) 8.6 mg PO BID PRN PRN Reason: Constipation Sodium Chloride (Sodium Chloride Flush 0.9% 10 Ml Syringe) 10 ml IVP 0100,0900,1700 [facility] Last Admin: 03/20/21 08:59 Dose: 10 ml Documented by: Sodium Chloride (Sodium Chloride Flush 0.9% 10 Ml Syringe) 10 ml IVP PRN PRN PRN Reason: NEEDED PER PROVIDER ORDERS Last Admin: 03/16/21 18:39 Dose: 30 ml Documented by: Trazodone HCl (Trazodone 50 Mg Tablet) 25 mg PO QPM PRN PRN Reason: Insomnia Atorvastatin [Lipitor] 20 mg PO QPM 03/12/21 Ciprofloxacin HCl 500 mg PO BID 03/12/21 Mirtazapine [Remeron] 7.5 mg PO QPM 03/12/21
[2021-03-20 15:28] LABS: B. PARAPERTUSSIS- RESP PCR PAN NOT DETECTED; B. PERTUSSIS- RESP PCR PANEL NOT DETECTED; C. PNEUMONIAE- RESP PCR PANEL NOT DETECTED; CORONAVIRUS 229E-RESP PCR NOT DETECTED; CORONAVIRUS HKU1-RESP PCR NOT DETECTED; CORONAVIRUS NL63-RESP PCR NOT DETECTED; CORONAVIRUS OC43-RESP PCR NOT DETECTED; HUMAN METAPNEUMOVIRUS NOT DETECTED; INFLUENZA A- RESP PCR PANEL NOT DETECTED; INFLUENZA B - RESP PCR PANEL NOT DETECTED; M. PNEUMONIAE- RESP PCR PANEL NOT DETECTED; PARAINFLUENZA VIRUS 1 NOT DETECTED; PARAINFLUENZA VIRUS 2 NOT DETECTED; PARAINFLUENZA VIRUS 3 NOT DETECTED; PARAINFLUENZA VIRUS 4 NOT DETECTED; RHINOVIRUS/ENTEROVIRUS NOT DETECTED; RSV- RESP PCR PANEL NOT DETECTED; SARS-CoV-2 -RESP PCR PANEL NOT DETECTED
[2021-03-21] MEDS: D5NS W/20 MEQ KCL 1,000 ML IV SCH ×2 (07:10→18:46)
[2021-03-21] MEDS: SODIUM CHLORIDE FLUSH 0.9% 10 ML SYRINGE IVP SCH ×3 (07:10→18:46)
[2021-03-21] MEDS: polyethylene glycoL 3350 17 GM PACKET PO SCH (07:51)
[2021-03-21] MEDS: FLUCONAZOLE 200 MG/100 ML 100 ML IV SCH (09:44)
--- NOTE | 2021-03-21 16:21 | PROVIDER PROGRESS NOTE ---
Assessment/Plan - Current Meds Current Meds: Current Medications Generic Name Dose Route Start Last Admin Trade Name Freq PRN Reason Stop Dose Admin Potassium Chloride/Dextrose/Sod Cl 1,000 mls @ 100 mls/hr 03/18/21 14:47 03/21/21 07:10 D5ns W/20 Meq Kcl IV 100 mls/hr .Q10H AVELINO Administration Morphine Sulfate 10 mg 03/19/21 13:58 03/20/21 21:35 Morphine Merle 10 Mg/0.5 Ml Oral Syringe SL 10 mg Q2HR PRN Administration PAIN Multi-Ingredient Ointment 1 applic 03/13/21 10:42 03/16/21 10:54 Zinc Oxide 20% Oint 30 Gm Tube TOP 1 applic PRN PRN Administration Skin Care Polyethylene Glycol 17 gm 03/13/21 12:00 03/21/21 07:51 Polyethylene Glycol 3350 17 Gm Packet PO Not Given DAILY AVELINO Sodium Chloride 10 ml 03/12/21 17:00 03/21/21 09:44 Sodium Chloride Flush 0.9% 10 Ml Syringe IVP 10 ml 0100,0900,1700 AVELINO Administration Sodium Chloride 10 ml 03/12/21 12:26 03/16/21 18:39 Sodium Chloride Flush 0.9% 10 Ml Syringe IVP 30 ml PRN PRN Administration NEEDED PER PROVIDER ORDERS - Lab Result Fish Bone Diagrams: 03/19/21 04:40 03/19/21 06:40 - Additional Planning My Orders: My Active Orders 03/21/21 08:03 Miscellaenous Nursing Order [RC] ONCE 03/21/21 16:19 Vital Signs [RC] DAILY Objective Vital Signs: Oxygen O2 Source Room air Oxygen Flow Rate 2 I&O (Last 24 Hrs): Intake and Output Totals x24h 03/19/21 03/20/21 03/21/21 23:59 23:59 23:59 Intake Total 5146.167 2100 1100 Output Total 150 675 550 Balance 4996.167 1425 550 - Results Results: Laboratory Results WBC 15.2 x10^3/uL (4.8-10.8) H 03/19/21 04:40 RBC 3.36 10^6/uL (4.20-5.40) L 03/19/21 04:40 Hgb 9.4 g/dL (12.0-16.0) L 03/19/21 04:40 Hct 29.0 % (37.0-47.0) L 03/19/21 04:40 MCV 86.3 fL (81.0-99.0) 03/19/21 04:40 MCH 28.0 pg (27.0-31.0) 03/19/21 04:40 MCHC 32.4 g/dL (32.0-36.0) 03/19/21 04:40 RDW 17.9 % (12.0-15.0) H 03/19/21 04:40 Plt Count 196 10^3/uL (130-450) 03/19/21 04:40 MPV 10.5 fL (7.9-10.8) 03/19/21 04:40 Neut # (Auto) 13.3 10^3/uL (1.5-6.6) H 03/19/21 04:40 Lymph # (Auto) 1.0 10^3/uL (1.5-3.5) L 03/19/21 04:40 [place] # (Auto) 0.6 10^3/uL (0.0-1.0) 03/19/21 04:40 Eos # (Auto) 0.3 10^3/uL (0.0-0.7) 03/19/21 04:40 Baso # (Auto) 0.1 10^3/uL (0.0-0.1) 03/19/21 04:40 Absolute Nucleated RBC 0.00 x10^3/uL 03/19/21 04:40 Total Counted 100 03/17/21 05:10 Band Neuts % (Manual) 0 % (0-10) 03/17/21 05:10 Abnorm Lymph % (Manual) 0 % 03/17/21 05:10 Nucleated RBC % 0.0 /100WBC 03/19/21 04:40 Neutrophils # (Manual) 18.9 10^3/uL (1.5-6.6) H 03/17/21 05:10 Lymphocytes # (Manual) 3.0 10^3/uL (1.5-3.5) 03/17/21 05:10 Monocytes # (Manual) 0.7 10^3/uL (0.0-1.0) 03/17/21 05:10 Eosinophils # (Manual) 0.5 10^3/uL (0-0.7) 03/17/21 05:10 Basophils # (Manual) 0.0 10^3/uL (0-0.1) 03/17/21 05:10 Differential Comment MANUAL DIFFERENTIAL 03/17/21 05:10 Manual Slide Review Indicated 03/12/21 10:38 WBC Morphology NORMAL APPEARANCE (NORMAL) 03/17/21 05:10 Platelet Estimate NORMAL (130-450,000) (NORMAL) 03/17/21 05:10 Platelet Morphology NORMAL APPEARANCE (NORMAL) 03/17/21 05:10 RBC Morph Micro Appear 1+ AURELIA CELLS (NORMAL) 03/17/21 05:10 PT 17.7 secs (9.9-12.6) H 03/12/21 13:10 INR 1.6 (0.8-1.2) H 03/12/21 13:10 VBG pH 7.382 (7.31-7.41) 03/16/21 13:15 Ionized Calcium 1.16 mmol/L (1.15-1.33) 03/16/21 13:15 Sodium 141 mmol/L (135-145) 03/19/21 06:40 Potassium 2.9 mmol/L (3.5-5.0) L 03/19/21 06:40 Chloride 115 mmol/L (101-111) H 03/19/21 06:40 Carbon Dioxide 17 mmol/L (21-32) L 03/19/21 06:40 Anion Gap 9.0 (6-13) 03/19/21 06:40 BUN 12 mg/dL (6-20) 03/19/21 06:40 Creatinine 0.5 mg/dL (0.4-1.0) 03/19/21 06:40 Estimated GFR (MDRD) 117 (>89) 03/19/21 06:40 Glucose 90 mg/dL (70-100) 03/19/21 06:40 POC Whole Bld Glucose 70 mg/dL (70 - 100) 03/19/21 23:42 Lactic Acid 1.1 mmol/L (0.5-2.2) 03/18/21 10:03 Calcium 7.3 mg/dL (8.5-10.3) L 03/19/21 06:40 Phosphorus 2.1 mg/dL (2.5-4.6) L 03/19/21 06:40 Magnesium 1.5 mg/dL (1.7-2.8) L 03/19/21 04:40 Total Bilirubin 0.9 mg/dL (0.2-1.0) 03/18/21 06:00 AST 44 IU/L (10-42) H 03/18/21 06:00 ALT 51 IU/L (10-60) 03/18/21 06:00 Alkaline Phosphatase 131 IU/L (42-121) H 03/18/21 06:00 Total Creatine Kinase 12 IU/L (22-269) L 03/12/21 15:08 Troponin I High Sens 63.9 ng/L (2.3-14.8) H* 03/12/21 15:08 B-Natriuretic Peptide 230 pg/mL (5-100) H 03/12/21 11:31 Total Protein 4.2 g/dL (6.7-8.2) L 03/18/21 06:00 Albumin 1.7 g/dL (3.2-5.5) L 03/18/21 06:00 Globulin 2.5 g/dL (2.1-4.2) 03/18/21 06:00 Albumin/Globulin Ratio 0.7 (1.0-2.2) L 03/18/21 06:00 Prealbumin 3 mg/dL (18-45) L 03/18/21 06:00 Lipase 40 U/L (22-51) 03/12/21 11:31 Urine Color BROWN 03/17/21 11:25 Urine Clarity CLOUDY (CLEAR) 03/17/21 11:25 Urine pH 5.5 PH (5.0-7.5) 03/17/21 11:25 Ur Specific [place] 1.025 (1.002-1.030) 03/17/21 11:25 Urine Protein 100 mg/dL (NEGATIVE) H 03/17/21 11:25 Urine Glucose (UA) NEGATIVE mg/dL (NEGATIVE) 03/17/21 11:25 Urine Ketones NEGATIVE mg/dL (NEGATIVE) 03/17/21 11:25 Urine Occult Blood LARGE (NEGATIVE) H 03/17/21 11:25 Urine Nitrite NEGATIVE (NEGATIVE) 03/17/21 11:25 Urine Bilirubin NEGATIVE (NEGATIVE) 03/17/21 11:25 Urine Urobilinogen 0.2 (NORMAL) E.U./dL (NORMAL) 03/17/21 11:25 Ur Leukocyte Esterase LARGE (NEGATIVE) H 03/17/21 11:25 Urine RBC TNTC /HPF (0-5) H 03/17/21 11:25 Urine WBC 6-10 /HPF (0-5) H 03/17/21 11:25 Ur Squamous Epith Cells NONE SEEN (<= Few) 03/17/21 11:25 Urine Bacteria Few /HPF (None Seen) 03/17/21 11:25 Urine Yeast PRESENT 03/17/21 11:25 Ur Microscopic Review INDICATED 03/12/21 22:48 Urine Culture Comments INDICATED 03/17/21 11:25 Urine Creatinine 31.9 mg/dL 03/17/21 11:25 Urine Sodium 64.0 mmol/L 03/17/21 11:25 Urine Potassium 46.1 mmol/L 03/17/21 11:25 Nasal Adenovirus (PCR) NOT DETECTED 03/20/21 13:40 Nasal B. parapertussis DNA (PCR) NOT DETECTED 03/20/21 13:40 Nasal Coronavir 229E PCR NOT DETECTED 03/20/21 13:40 Nasal Coronavir HKU1 PCR NOT DETECTED 03/20/21 13:40 Nasal Coronavir NL63 PCR NOT DETECTED 03/20/21 13:40 Nasal Coronavir OC43 PCR NOT DETECTED 03/20/21 13:40 Nasal Enterovir/Rhinovir PCR NOT DETECTED 03/20/21 13:40 Nasal Influenza B PCR NOT DETECTED 03/20/21 13:40 Nasal Influenza A PCR NOT DETECTED 03/20/21 13:40 Nasal Parainfluen 1 PCR NOT DETECTED 03/20/21 13:40 Nasal Parainfluen 2 PCR NOT DETECTED 03/20/21 13:40 Nasal Parainfluen 3 PCR NOT DETECTED 03/20/21 13:40 Nasal Parainfluen 4 PCR NOT DETECTED 03/20/21 13:40 Nasal RSV (PCR) NOT DETECTED 03/20/21 13:40 Nasal Screen MRSA (PCR) NEGATIVE (NEGATIVE) 03/12/21 14:15 Nasal B.pertussis DNA PCR NOT DETECTED 03/20/21 13:40 Nasal C.pneumoniae (PCR) NOT DETECTED 03/20/21 13:40 Brian Human Metapneumo PCR NOT DETECTED 03/20/21 13:40 Nasal M.pneumoniae (PCR) NOT DETECTED 03/20/21 13:40 Nasal SARS-CoV-2 (PCR) NOT DETECTED 03/20/21 13:40 Last Dose Date Not Reportable 03/17/21 09:53 Last Dose Time Not Reportable 03/17/21 09:53 Vancomycin Trough 11.3 ug/mL (10.0-20.0) 03/17/21 09:53 - Procedures Procedures: Procedures EXCISION OF ASCENDING COLON, ENDO, DIAGN (07/05/16) EXCISION OF DESCENDING COLON, ENDO, DIAGN (07/05/16) EXCISION OF RECTUM, ENDO, DIAGN (07/05/16) EXCISION OF SIGMOID COLON, ENDO, DIAGN (07/05/16) EXCISION OF TRANSVERSE COLON, ENDO, DIAGN (07/05/16) Sepsis Event Note (H) - Evaluation Current Stage of Sepsis: Severe sepsis Possible source of Sepsis: positive: Genitourinary - Sepsis Criteria Sepsis Criteria: Recorded Heart Rate greater than 90 bpm, WBC count greater than 12,000 or less than 4000, DATA MANAGEMENT ENGINEER: altered consciousness (unrelated to primary neuro pathology), Renal: urine output less than 0.5ml/kg/hr for 2 hours or creatinine gr, Metabolic: lactate > 2 mmol/L ABX Reporting Has patient been on IV antibiotics over the past 48 hours?: No
--- NOTE | 2021-03-21 17:18 | PROVIDER PROGRESS NOTE ---
Assessment/Plan - Problem List (1) Comfort measures only status Assessment/Plan: 03/21 consult with social work lecturer for pt's disposition planing, continue comfort care measure, Patient had a palliative care consult, patient is scheduled to return [facility] To be follow-up with hospice care. [facility] Can not take the patient on today. Rapid COVID-19 test is ordered by [facility] requirement. hospice care will follow up care for patient on tomorrow 2, Sepsis/multifactorial including UTI, pneumonia Patient was admitted for severe sepsis. Now patient is comfortable care. Antibiotics was finished in previous and focus on comfort care. 3, Encephalopathy/Prolonged delirium Chronic 4, Dysphagia History dysphagia, likely from patient stroke. Patient had dysphagia diet ordered but patient had very poor oral intake. We will continue nursing care, Feeding patient as patient needed. 5, history of stroke As patient history 6, Chronic impairment on both cognitive and physical As patient history, patient presents chronic impaired cognitively and physically ability. 7, Anorexia with Hypoglycemia Episodes 03/21 pt still did not eat any her diet. continue nurse support, continue comfort measure Patient has very poor oral intake, has hypoglycemia episodes. We will continue D5 fluids IVF in the hospital 8, Severe malnutrition and hypoalbuminemia As patient's history, patient had severe malnutrition and anorexia - Current Meds Current Meds: Current Medications Generic Name Dose Route Start Last Admin Trade Name Freq PRN Reason Stop Dose Admin Potassium Chloride/Dextrose/Sod Cl 1,000 mls @ 100 mls/hr 03/18/21 14:47 03/07 11/24 07:10 D5ns W/20 Meq Kcl IV 100 mls/hr .Q10H AVELINO Administration Morphine Sulfate 10 mg 03/19/21 13:58 03/20/21 21:35 Morphine Merle 10 Mg/0.5 Ml Oral Syringe SL 10 mg Q2HR PRN Administration PAIN Multi-Ingredient Ointment 1 applic 03/13/21 10:42 03/16/21 10:54 Zinc Oxide 20% Oint 30 Gm Tube TOP 1 applic PRN PRN Administration Skin Care Polyethylene Glycol 17 gm 03/13/21 12:00 03/21/21 07:51 Polyethylene Glycol 3350 17 Gm Packet PO Not Given DAILY AVELINO Sodium Chloride 10 ml 03/12/21 17:00 03/21/21 09:44 Sodium Chloride Flush 0.9% 10 Ml Syringe IVP 10 ml 0100,0900,1700 AVELINO Administration Sodium Chloride 10 ml 03/12/21 12:26 03/16/21 18:39 Sodium Chloride Flush 0.9% 10 Ml Syringe IVP 30 ml PRN PRN Administration NEEDED PER PROVIDER ORDERS - Lab Result Fish Bone Diagrams: 03/19/21 04:40 03/19/21 06:40 - Additional Planning My Orders: My Active Orders 03/21/21 08:03 Miscellaenous Nursing Order [RC] ONCE 03/21/21 16:19 Vital Signs [RC] DAILY Subjective - Subjective Nursing Reports: Confused Objective Vital Signs: Oxygen O2 Source Room air Oxygen Flow Rate 2 I&O (Last 24 Hrs): Intake and Output Totals x24h 03/19/21 03/20/21 03/21/21 23:59 23:59 23:59 Intake Total 5146.167 2100 1100 Output Total 150 675 550 Balance 4996.167 1425 550 General: Alert, No acute distress HEENT: Atraumatic Neck: Supple Lymphatic: no adenopathy Neuro: Alert Cardiovascular: Regular rate, Normal S1, Normal S2 Respiratory: Chest non-tender, No respiratory distress Abdomen: Normal bowel sounds, Soft Extremities: Normal pulses - Results Results: Laboratory Results WBC 15.2 x10^3/uL (4.8-10.8) H 03/19/21 04:40 RBC 3.36 10^6/uL (4.20-5.40) L 03/19/21 04:40 Hgb 9.4 g/dL (12.0-16.0) L 03/19/21 04:40 Hct 29.0 % (37.0-47.0) L 03/19/21 04:40 MCV 86.3 fL (81.0-99.0) 03/19/21 04:40 MCH 28.0 pg (27.0-31.0) 03/19/21 04:40 MCHC 32.4 g/dL (32.0-36.0) 03/19/21 04:40 RDW 17.9 % (12.0-15.0) H 03/19/21 04:40 Plt Count 196 10^3/uL (130-450) 03/19/21 04:40 MPV 10.5 fL (7.9-10.8) 03/19/21 04:40 Neut # (Auto) 13.3 10^3/uL (1.5-6.6) H 03/19/21 04:40 Lymph # (Auto) 1.0 10^3/uL (1.5-3.5) L 03/19/21 04:40 [place] # (Auto) 0.6 10^3/uL (0.0-1.0) 03/19/21 04:40 Eos # (Auto) 0.3 10^3/uL (0.0-0.7) 03/19/21 04:40 Baso # (Auto) 0.1 10^3/uL (0.0-0.1) 03/19/21 04:40 Absolute Nucleated RBC 0.00 x10^3/uL 03/19/21 04:40 Total Counted 100 03/17/21 05:10 Band Neuts % (Manual) 0 % (0-10) 03/17/21 05:10 Abnorm Lymph % (Manual) 0 % 03/17/21 05:10 Nucleated RBC % 0.0 /100WBC 03/19/21 04:40 Neutrophils # (Manual) 18.9 10^3/uL (1.5-6.6) H 03/17/21 05:10 Lymphocytes # (Manual) 3.0 10^3/uL (1.5-3.5) 03/17/21 05:10 Monocytes # (Manual) 0.7 10^3/uL (0.0-1.0) 03/17/21 05:10 Eosinophils # (Manual) 0.5 10^3/uL (0-0.7) 03/17/21 05:10 Basophils # (Manual) 0.0 10^3/uL (0-0.1) 03/17/21 05:10 Differential Comment MANUAL DIFFERENTIAL 03/17/21 05:10 Manual Slide Review Indicated 03/12/21 10:38 WBC Morphology NORMAL APPEARANCE (NORMAL) 03/17/21 05:10 Platelet Estimate NORMAL (130-450,000) (NORMAL) 03/17/21 05:10 Platelet Morphology NORMAL APPEARANCE (NORMAL) 03/17/21 05:10 RBC Morph Micro Appear 1+ AURELIA CELLS (NORMAL) 03/17/21 05:10 PT 17.7 secs (9.9-12.6) H 03/12/21 13:10 INR 1.6 (0.8-1.2) H 03/12/21 13:10 VBG pH 7.382 (7.31-7.41) 03/16/21 13:15 Ionized Calcium 1.16 mmol/L (1.15-1.33) 03/16/21 13:15 Sodium 141 mmol/L (135-145) 03/19/21 06:40 Potassium 2.9 mmol/L (3.5-5.0) L 03/19/21 06:40 Chloride 115 mmol/L (101-111) H 03/19/21 06:40 Carbon Dioxide 17 mmol/L (21-32) L 03/19/21 06:40 Anion Gap 9.0 (6-13) 03/19/21 06:40 BUN 12 mg/dL (6-20) 03/19/21 06:40 Creatinine 0.5 mg/dL (0.4-1.0) 03/19/21 06:40 Estimated GFR (MDRD) 117 (>89) 03/19/21 06:40 Glucose 90 mg/dL (70-100) 03/19/21 06:40 POC Whole Bld Glucose 70 mg/dL (70 - 100) 03/19/21 23:42 Lactic Acid 1.1 mmol/L (0.5-2.2) 03/18/21 10:03 Calcium 7.3 mg/dL (8.5-10.3) L 03/19/21 06:40 Phosphorus 2.1 mg/dL (2.5-4.6) L 03/19/21 06:40 Magnesium 1.5 mg/dL (1.7-2.8) L 03/19/21 04:40 Total Bilirubin 0.9 mg/dL (0.2-1.0) 03/18/21 06:00 AST 44 IU/L (10-42) H 03/18/21 06:00 ALT 51 IU/L (10-60) 03/18/21 06:00 Alkaline Phosphatase 131 IU/L (42-121) H 03/18/21 06:00 Total Creatine Kinase 12 IU/L (22-269) L 03/12/21 15:08 Troponin I High Sens 63.9 ng/L (2.3-14.8) H* 03/12/21 15:08 B-Natriuretic Peptide 230 pg/mL (5-100) H 03/12/21 11:31 Total Protein 4.2 g/dL (6.7-8.2) L 03/18/21 06:00 Albumin 1.7 g/dL (3.2-5.5) L 03/18/21 06:00 Globulin 2.5 g/dL (2.1-4.2) 03/18/21 06:00 Albumin/Globulin Ratio 0.7 (1.0-2.2) L 03/18/21 06:00 Prealbumin 3 mg/dL (18-45) L 03/18/21 06:00 Lipase 40 U/L (22-51) 03/12/21 11:31 Urine Color BROWN 03/17/21 11:25 Urine Clarity CLOUDY (CLEAR) 03/17/21 11:25 Urine pH 5.5 PH (5.0-7.5) 03/17/21 11:25 Ur Specific [place] 1.025 (1.002-1.030) 03/17/21 11:25 Urine Protein 100 mg/dL (NEGATIVE) H 03/17/21 11:25 Urine Glucose (UA) NEGATIVE mg/dL (NEGATIVE) 03/17/21 11:25 Urine Ketones NEGATIVE mg/dL (NEGATIVE) 03/17/21 11:25 Urine Occult Blood LARGE (NEGATIVE) H 03/17/21 11:25 Urine Nitrite NEGATIVE (NEGATIVE) 03/17/21 11:25 Urine Bilirubin NEGATIVE (NEGATIVE) 03/17/21 11:25 Urine Urobilinogen 0.2 (NORMAL) E.U./dL (NORMAL) 03/17/21 11:25 Ur Leukocyte Esterase LARGE (NEGATIVE) H 03/17/21 11:25 Urine RBC TNTC /HPF (0-5) H 03/17/21 11:25 Urine WBC 6-10 /HPF (0-5) H 03/17/21 11:25 Ur Squamous Epith Cells NONE SEEN (<= Few) 03/17/21 11:25 Urine Bacteria Few /HPF (None Seen) 03/17/21 11:25 Urine Yeast PRESENT 03/17/21 11:25 Ur Microscopic Review INDICATED 03/12/21 22:48 Urine Culture Comments INDICATED 03/17/21 11:25 Urine Creatinine 31.9 mg/dL 03/17/21 11:25 Urine Sodium 64.0 mmol/L 03/17/21 11:25 Urine Potassium 46.1 mmol/L 03/17/21 11:25 Nasal Adenovirus (PCR) NOT DETECTED 03/20/21 13:40 Nasal B. parapertussis DNA (PCR) NOT DETECTED 03/20/21 13:40 Nasal Coronavir 229E PCR NOT DETECTED 03/20/21 13:40 Nasal Coronavir HKU1 PCR NOT DETECTED 03/20/21 13:40 Nasal Coronavir NL63 PCR NOT DETECTED 03/20/21 13:40 Nasal Coronavir OC43 PCR NOT DETECTED 03/20/21 13:40 Nasal Enterovir/Rhinovir PCR NOT DETECTED 03/20/21 13:40 Nasal Influenza B PCR NOT DETECTED 03/20/21 13:40 Nasal Influenza A PCR NOT DETECTED 03/20/21 13:40 Nasal Parainfluen 1 PCR NOT DETECTED 03/20/21 13:40 Nasal Parainfluen 2 PCR NOT DETECTED 03/20/21 13:40 Nasal Parainfluen 3 PCR NOT DETECTED 03/20/21 13:40 Nasal Parainfluen 4 PCR NOT DETECTED 03/20/21 13:40 Nasal RSV (PCR) NOT DETECTED 03/20/21 13:40 Nasal Screen MRSA (PCR) NEGATIVE (NEGATIVE) 03/12/21 14:15 Nasal B.pertussis DNA PCR NOT DETECTED 03/20/21 13:40 Nasal C.pneumoniae (PCR) NOT DETECTED 03/20/21 13:40 Brian Human Metapneumo PCR NOT DETECTED 03/20/21 13:40 Nasal M.pneumoniae (PCR) NOT DETECTED 03/20/21 13:40 Nasal SARS-CoV-2 (PCR) NOT DETECTED 03/20/21 13:40 Last Dose Date Not Reportable 03/17/21 09:53 Last Dose Time Not Reportable 03/17/21 09:53 Vancomycin Trough 11.3 ug/mL (10.0-20.0) 03/17/21 09:53 - Procedures Procedures: Procedures EXCISION OF ASCENDING COLON, ENDO, DIAGN (07/05/16) EXCISION OF DESCENDING COLON, ENDO, DIAGN (07/05/16) EXCISION OF RECTUM, ENDO, DIAGN (07/05/16) EXCISION OF SIGMOID COLON, ENDO, DIAGN (07/05/16) EXCISION OF TRANSVERSE COLON, ENDO, DIAGN (07/05/16) Sepsis Event Note (H) - Evaluation Current Stage of Sepsis: Severe sepsis Possible source of Sepsis: positive: Genitourinary - Sepsis Criteria Sepsis Criteria: Recorded Heart Rate greater than 90 bpm, WBC count greater than 12,000 or less than 4000, DOCUMENT REVIEWER: altered consciousness (unrelated to primary neuro pathology), Renal: urine output less than 0.5ml/kg/hr for 2 hours or creatinine gr, Metabolic: lactate > 2 mmol/L ABX Reporting Has patient been on IV antibiotics over the past 48 hours?: No Current Medications - Current Medications Current Medications: Active Medications Acetaminophen (Acetaminophen 325 Mg Tablet) 650 mg PO Q4HR PRN PRN Reason: Pain 1 to 4 Carboxymethylcellulose (Carboxymethylcellulose Ophth Drops) 1 drops EACHEYE QID PRN PRN Reason: Dry Eye Potassium Chloride/Dextrose/Sod Cl (D5ns W/20 Meq Kcl) 1,000 mls @ 100 mls/hr IV .Q10H AVELINO Last Admin: 03/21/21 07:10 Dose: 100 mls/hr Documented by: Lorazepam (Lorazepam 2 Mg/Ml Vial) 1 mg SUBQ Q6H PRN PRN Reason: Anxiety/Agitation Morphine Sulfate (Morphine Merle 10 Mg/0.5 Ml Oral Syringe) 10 mg SL Q2HR PRN PRN Reason: PAIN Last Admin: 03/20/21 21:35 Dose: 10 mg Documented by: Multi-Ingredient Mouthwash/Gargle (Gi Cocktail 120 Ml Bottle) 5 ml PO Q2H PRN PRN Reason: Mucositis Multi-Ingredient Ointment (Zinc Oxide 20% Oint 30 Gm Tube) 1 applic TOP PRN PRN PRN Reason: Skin Care Last Admin: 03/16/21 10:54 Dose: 1 applic Documented by: Ondansetron HCl (Ondansetron 4 Mg/2 Ml Vial) 4 mg IVP Q6HR PRN PRN Reason: Nausea / Vomiting Ondansetron HCl (Ondansetron Odt 4 Mg Tablet) 4 mg TL Q6HR PRN PRN Reason: Nausea / Vomiting Polyethylene Glycol (Polyethylene Glycol 3350 17 Gm Packet) 17 gm PO DAILY AVELINO Last Admin: 03/21/21 07:51 Dose: Not Given Documented by: Senna (Senna 8.6 Mg Tablet) 8.6 mg PO BID PRN PRN Reason: Constipation Sodium Chloride (Sodium Chloride Flush 0.9% 10 Ml Syringe) 10 ml IVP 0100,0900,1700 AVELINO Last Admin: 03/21/21 09:44 Dose: 10 ml Documented by: Sodium Chloride (Sodium Chloride Flush 0.9% 10 Ml Syringe) 10 ml IVP PRN PRN PRN Reason: NEEDED PER PROVIDER ORDERS Last Admin: 03/16/21 18:39 Dose: 30 ml Documented by: Trazodone HCl (Trazodone 50 Mg Tablet) 25 mg PO QPM PRN PRN Reason: Insomnia Atorvastatin [Lipitor] 20 mg PO QPM 03/12/21 Ciprofloxacin HCl 500 mg PO BID 03/12/21 Mirtazapine [Remeron] 7.5 mg PO QPM 03/12/21
[2021-03-22] MEDS: D5NS W/20 MEQ KCL 1,000 ML IV SCH ×2 (03:54→13:33)
[2021-03-22] MEDS: polyethylene glycoL 3350 17 GM PACKET PO SCH (09:39)
[2021-03-22] MEDS: SODIUM CHLORIDE FLUSH 0.9% 10 ML SYRINGE IVP SCH ×3 (09:39→17:20)
--- NOTE | 2021-03-22 15:13 | PROVIDER PROGRESS NOTE ---
Assessment/Plan - Problem List (1) Comfort measures only status Assessment/Plan: pt is on comfortable care measure status, pt is pending for replacement for hospice care by consult with social media coordinator. we will continue focus on comfortable measure, pain control, IVF, nurse care. - Current Meds Current Meds: Current Medications Generic Name Dose Route Start Last Admin Trade Name Freq PRN Reason Stop Dose Admin Potassium Chloride/Dextrose/Sod Cl 1,000 mls @ 100 mls/hr 03/18/21 14:47 03/22/21 13:33 D5ns W/20 Meq Kcl IV 100 mls/hr .Q10H [facility] Administration Morphine Sulfate 10 mg 03/19/21 13:58 03/20/21 21:35 Morphine Merle 10 Mg/0.5 Ml Oral Syringe SL 10 mg Q2HR PRN Administration PAIN Multi-Ingredient Ointment 1 applic 03/13/21 10:42 03/16/21 10:54 Zinc Oxide 20% Oint 30 Gm Tube TOP 1 applic PRN PRN Administration Skin Care Polyethylene Glycol 17 gm 03/13/21 12:00 03/22/21 09:39 Polyethylene Glycol 3350 17 Gm Packet PO 17 gm DAILY [facility]INO Administration Sodium Chloride 10 ml 03/12/21 17:00 03/22/21 13:33 Sodium Chloride Flush 0.9% 10 Ml Syringe IVP 10 ml 0100,0900,1700 [facility] Administration Sodium Chloride 10 ml 03/12/21 12:26 03/16/21 18:39 Sodium Chloride Flush 0.9% 10 Ml Syringe IVP 30 ml PRN PRN Administration NEEDED PER PROVIDER ORDERS - Lab Result Fish Bone Diagrams: 03/19/21 04:40 03/19/21 06:40 - Additional Planning My Orders: My Active Orders 03/21/21 16:19 Vital Signs [RC] DAILY Subjective - Subjective Nursing Reports: Confused Objective Vital Signs: Vital Signs - 24 hr 03/22/21 09:00 Temperature 36.4 C L Heart Rate [ 118 H Monitoring electrodes] Respiratory 20 Rate Blood Pressure 119/64 [Left Brachial artery] O2 Saturation 99 Oxygen O2 Source Room air Oxygen Flow Rate 2 I&O (Last 24 Hrs): Intake and Output Totals x24h 03/20/21 03/21/21 03/22/21 23:59 23:59 23:59 Intake Total 2100 2100 1878.333 Output Total 675 550 950 Balance 1425 1550 928.333 General: Alert, No acute distress HEENT: Atraumatic Neck: Supple Neuro: Alert Cardiovascular: Regular rate, Normal S1, Normal S2 Respiratory: Chest non-tender, No respiratory distress Abdomen: Normal bowel sounds, Soft - Results Results: Laboratory Results WBC 15.2 x10^3/uL (4.8-10.8) H 03/19/21 04:40 RBC 3.36 10^6/uL (4.20-5.40) L 03/19/21 04:40 Hgb 9.4 g/dL (12.0-16.0) L 03/19/21 04:40 Hct 29.0 % (37.0-47.0) L 03/19/21 04:40 MCV 86.3 fL (81.0-99.0) 03/19/21 04:40 MCH 28.0 pg (27.0-31.0) 03/19/21 04:40 MCHC 32.4 g/dL (32.0-36.0) 03/19/21 04:40 RDW 17.9 % (12.0-15.0) H 03/19/21 04:40 Plt Count 196 10^3/uL (130-450) 03/19/21 04:40 MPV 10.5 fL (7.9-10.8) 03/19/21 04:40 Neut # (Auto) 13.3 10^3/uL (1.5-6.6) H 03/19/21 04:40 Lymph # (Auto) 1.0 10^3/uL (1.5-3.5) L 03/19/21 04:40 [place] # (Auto) 0.6 10^3/uL (0.0-1.0) 03/19/21 04:40 Eos # (Auto) 0.3 10^3/uL (0.0-0.7) 03/19/21 04:40 Baso # (Auto) 0.1 10^3/uL (0.0-0.1) 03/19/21 04:40 Absolute Nucleated RBC 0.00 x10^3/uL 03/19/21 04:40 Total Counted 100 03/17/21 05:10 Band Neuts % (Manual) 0 % (0-10) 03/17/21 05:10 Abnorm Lymph % (Manual) 0 % 03/17/21 05:10 Nucleated RBC % 0.0 /100WBC 03/19/21 04:40 Neutrophils # (Manual) 18.9 10^3/uL (1.5-6.6) H 03/17/21 05:10 Lymphocytes # (Manual) 3.0 10^3/uL (1.5-3.5) 03/17/21 05:10 Monocytes # (Manual) 0.7 10^3/uL (0.0-1.0) 03/17/21 05:10 Eosinophils # (Manual) 0.5 10^3/uL (0-0.7) 03/17/21 05:10 Basophils # (Manual) 0.0 10^3/uL (0-0.1) 03/17/21 05:10 Differential Comment MANUAL DIFFERENTIAL 03/17/21 05:10 Manual Slide Review Indicated 03/12/21 10:38 WBC Morphology NORMAL APPEARANCE (NORMAL) 03/17/21 05:10 Platelet Estimate NORMAL (130-450,000) (NORMAL) 03/17/21 05:10 Platelet Morphology NORMAL APPEARANCE (NORMAL) 03/17/21 05:10 RBC Morph Micro Appear 1+ AURELIA CELLS (NORMAL) 03/17/21 05:10 PT 17.7 secs (9.9-12.6) H 03/12/21 13:10 INR 1.6 (0.8-1.2) H 03/12/21 13:10 VBG pH 7.382 (7.31-7.41) 03/16/21 13:15 Ionized Calcium 1.16 mmol/L (1.15-1.33) 03/16/21 13:15 Sodium 141 mmol/L (135-145) 03/19/21 06:40 Potassium 2.9 mmol/L (3.5-5.0) L 03/19/21 06:40 Chloride 115 mmol/L (101-111) H 03/19/21 06:40 Carbon Dioxide 17 mmol/L (21-32) L 03/19/21 06:40 Anion Gap 9.0 (6-13) 03/19/21 06:40 BUN 12 mg/dL (6-20) 03/19/21 06:40 Creatinine 0.5 mg/dL (0.4-1.0) 03/19/21 06:40 Estimated GFR (MDRD) 117 (>89) 03/19/21 06:40 Glucose 90 mg/dL (70-100) 03/19/21 06:40 POC Whole Bld Glucose 70 mg/dL (70 - 100) 03/19/21 23:42 Lactic Acid 1.1 mmol/L (0.5-2.2) 03/18/21 10:03 Calcium 7.3 mg/dL (8.5-10.3) L 03/19/21 06:40 Phosphorus 2.1 mg/dL (2.5-4.6) L 03/19/21 06:40 Magnesium 1.5 mg/dL (1.7-2.8) L 03/19/21 04:40 Total Bilirubin 0.9 mg/dL (0.2-1.0) 03/18/21 06:00 AST 44 IU/L (10-42) H 03/18/21 06:00 ALT 51 IU/L (10-60) 03/18/21 06:00 Alkaline Phosphatase 131 IU/L (42-121) H 03/18/21 06:00 Total Creatine Kinase 12 IU/L (22-269) L 03/12/21 15:08 Troponin I High Sens 63.9 ng/L (2.3-14.8) H* 03/12/21 15:08 B-Natriuretic Peptide 230 pg/mL (5-100) H 03/12/21 11:31 Total Protein 4.2 g/dL (6.7-8.2) L 03/18/21 06:00 Albumin 1.7 g/dL (3.2-5.5) L 03/18/21 06:00 Globulin 2.5 g/dL (2.1-4.2) 03/18/21 06:00 Albumin/Globulin Ratio 0.7 (1.0-2.2) L 03/18/21 06:00 Prealbumin 3 mg/dL (18-45) L 03/18/21 06:00 Lipase 40 U/L (22-51) 03/12/21 11:31 Urine Color BROWN 03/17/21 11:25 Urine Clarity CLOUDY (CLEAR) 03/17/21 11:25 Urine pH 5.5 PH (5.0-7.5) 03/17/21 11:25 Ur Specific [place] 1.025 (1.002-1.030) 03/17/21 11:25 Urine Protein 100 mg/dL (NEGATIVE) H 03/17/21 11:25 Urine Glucose (UA) NEGATIVE mg/dL (NEGATIVE) 03/17/21 11:25 Urine Ketones NEGATIVE mg/dL (NEGATIVE) 03/17/21 11:25 Urine Occult Blood LARGE (NEGATIVE) H 03/17/21 11:25 Urine Nitrite NEGATIVE (NEGATIVE) 03/17/21 11:25 Urine Bilirubin NEGATIVE (NEGATIVE) 03/17/21 11:25 Urine Urobilinogen 0.2 (NORMAL) E.U./dL (NORMAL) 03/17/21 11:25 Ur Leukocyte Esterase LARGE (NEGATIVE) H 03/17/21 11:25 Urine RBC TNTC /HPF (0-5) H 03/17/21 11:25 Urine WBC 6-10 /HPF (0-5) H 03/17/21 11:25 Ur Squamous Epith Cells NONE SEEN (<= Few) 03/17/21 11:25 Urine Bacteria Few /HPF (None Seen) 03/17/21 11:25 Urine Yeast PRESENT 03/17/21 11:25 Ur Microscopic Review INDICATED 03/12/21 22:48 Urine Culture Comments INDICATED 03/17/21 11:25 Urine Creatinine 31.9 mg/dL 03/17/21 11:25 Urine Sodium 64.0 mmol/L 03/17/21 11:25 Urine Potassium 46.1 mmol/L 03/17/21 11:25 Nasal Adenovirus (PCR) NOT DETECTED 03/20/21 13:40 Nasal B. parapertussis DNA (PCR) NOT DETECTED 03/20/21 13:40 Nasal Coronavir 229E PCR NOT DETECTED 03/20/21 13:40 Nasal Coronavir HKU1 PCR NOT DETECTED 03/20/21 13:40 Nasal Coronavir NL63 PCR NOT DETECTED 03/20/21 13:40 Nasal Coronavir OC43 PCR NOT DETECTED 03/20/21 13:40 Nasal Enterovir/Rhinovir PCR NOT DETECTED 03/20/21 13:40 Nasal Influenza B PCR NOT DETECTED 03/20/21 13:40 Nasal Influenza A PCR NOT DETECTED 03/20/21 13:40 Nasal Parainfluen 1 PCR NOT DETECTED 03/20/21 13:40 Nasal Parainfluen 2 PCR NOT DETECTED 03/20/21 13:40 Nasal Parainfluen 3 PCR NOT DETECTED 03/20/21 13:40 Nasal Parainfluen 4 PCR NOT DETECTED 03/20/21 13:40 Nasal RSV (PCR) NOT DETECTED 03/20/21 13:40 Nasal Screen MRSA (PCR) NEGATIVE (NEGATIVE) 03/12/21 14:15 Nasal B.pertussis DNA PCR NOT DETECTED 03/20/21 13:40 Nasal C.pneumoniae (PCR) NOT DETECTED 03/20/21 13:40 Brian Human Metapneumo PCR NOT DETECTED 03/20/21 13:40 Nasal M.pneumoniae (PCR) NOT DETECTED 03/20/21 13:40 Nasal SARS-CoV-2 (PCR) NOT DETECTED 03/20/21 13:40 Last Dose Date Not Reportable 03/17/21 09:53 Last Dose Time Not Reportable 03/17/21 09:53 Vancomycin Trough 11.3 ug/mL (10.0-20.0) 03/17/21 09:53 - Procedures Procedures: Procedures EXCISION OF ASCENDING COLON, ENDO, DIAGN (07/05/16) EXCISION OF DESCENDING COLON, ENDO, DIAGN (07/05/16) EXCISION OF RECTUM, ENDO, DIAGN (07/05/16) EXCISION OF SIGMOID COLON, ENDO, DIAGN (07/05/16) EXCISION OF TRANSVERSE COLON, ENDO, DIAGN (07/05/16) Sepsis Event Note (H) - Evaluation Current Stage of Sepsis: Severe sepsis Possible source of Sepsis: positive: Genitourinary - Sepsis Criteria Sepsis Criteria: Recorded Heart Rate greater than 90 bpm, WBC count greater than 12,000 or less than 4000, BI TRI OPERATOR: altered consciousness (unrelated to primary neuro pathology), Renal: urine output less than 0.5ml/kg/hr for 2 hours or creatinine gr, Metabolic: lactate > 2 mmol/L ABX Reporting Has patient been on IV antibiotics over the past 48 hours?: No Current Medications - Current Medications Current Medications: Active Medications Acetaminophen (Acetaminophen 325 Mg Tablet) 650 mg PO Q4HR PRN PRN Reason: Pain 1 to 4 Carboxymethylcellulose (Carboxymethylcellulose Ophth Drops) 1 drops EACHEYE QID PRN PRN Reason: Dry Eye Potassium Chloride/Dextrose/Sod Cl (D5ns W/20 Meq Kcl) 1,000 mls @ 100 mls/hr IV .Q10H [facility] Last Admin: 03/22/21 13:33 Dose: 100 mls/hr Documented by: Lorazepam (Lorazepam 2 Mg/Ml Vial) 1 mg SUBQ Q6H PRN PRN Reason: Anxiety/Agitation Morphine Sulfate (Morphine Merle 10 Mg/0.5 Ml Oral Syringe) 10 mg SL Q2HR PRN PRN Reason: PAIN Last Admin: 03/20/21 21:35 Dose: 10 mg Documented by: Multi-Ingredient Mouthwash/Gargle (Gi Cocktail 120 Ml Bottle) 5 ml PO Q2H PRN PRN Reason: Mucositis Multi-Ingredient Ointment (Zinc Oxide 20% Oint 30 Gm Tube) 1 applic TOP PRN PRN PRN Reason: Skin Care Last Admin: 03/16/21 10:54 Dose: 1 applic Documented by: Ondansetron HCl (Ondansetron 4 Mg/2 Ml Vial) 4 mg IVP Q6HR PRN PRN Reason: Nausea / Vomiting Ondansetron HCl (Ondansetron Odt 4 Mg Tablet) 4 mg TL Q6HR PRN PRN Reason: Nausea / Vomiting Polyethylene Glycol (Polyethylene Glycol 3350 17 Gm Packet) 17 gm PO DAILY [facility] Last Admin: 03/22/21 09:39 Dose: 17 gm Documented by: Senna (Senna 8.6 Mg Tablet) 8.6 mg PO BID PRN PRN Reason: Constipation Sodium Chloride (Sodium Chloride Flush 0.9% 10 Ml Syringe) 10 ml IVP 0100,0900,1700 [facility] Last Admin: 03/22/21 13:33 Dose: 10 ml Documented by: Sodium Chloride (Sodium Chloride Flush 0.9% 10 Ml Syringe) 10 ml IVP PRN PRN PRN Reason: NEEDED PER PROVIDER ORDERS Last Admin: 03/16/21 18:39 Dose: 30 ml Documented by: Trazodone HCl (Trazodone 50 Mg Tablet) 25 mg PO QPM PRN PRN Reason: Insomnia Atorvastatin [Lipitor] 20 mg PO QPM 03/12/21 Ciprofloxacin HCl 500 mg PO BID 03/12/21 Mirtazapine [Remeron] 7.5 mg PO QPM 03/12/21
[2021-03-23] MEDS: D5NS W/20 MEQ KCL 1,000 ML IV SCH ×3 (00:29→19:41)
[2021-03-23] MEDS: SODIUM CHLORIDE FLUSH 0.9% 10 ML SYRINGE IVP SCH ×3 (00:29→18:28)
[2021-03-23] MEDS: polyethylene glycoL 3350 17 GM PACKET PO SCH (08:57)
[2021-03-23] MEDS ORDERED: LORazepam 2 MG/ML VIAL IVP PRN (09:55)
--- NOTE | 2021-03-23 14:39 | PROVIDER PROGRESS NOTE ---
Assessment/Plan - Problem List (1) Comfort measures only status Assessment/Plan: pt is on comfortable care measure status, social science manager is consulted for replacement for hospice care. we will continue focus on comfortable measure, pain control, IVF, nurse care. - Current Meds Current Meds: Current Medications Generic Name Dose Route Start Last Admin Trade Name Freq PRN Reason Stop Dose Admin Potassium Chloride/Dextrose/Sod Cl 1,000 mls @ 100 mls/hr 03/18/21 14:47 03/23/21 10:08 D5ns W/20 Meq Kcl IV 100 mls/hr .Q10H [facility] Administration Morphine Sulfate 10 mg 03/19/21 13:58 03/20/21 21:35 Morphine Merle 10 Mg/0.5 Ml Oral Syringe SL 10 mg Q2HR PRN Administration PAIN Multi-Ingredient Ointment 1 applic 03/13/21 10:42 03/16/21 10:54 Zinc Oxide 20% Oint 30 Gm Tube TOP 1 applic PRN PRN Administration Skin Care Polyethylene Glycol 17 gm 03/13/21 12:00 03/23/21 08:57 Polyethylene Glycol 3350 17 Gm Packet PO Not Given DAILY [facility] Sodium Chloride 10 ml 03/12/21 17:00 03/23/21 08:57 Sodium Chloride Flush 0.9% 10 Ml Syringe IVP 10 ml 0100,0900,1700 [facility]INO Administration Sodium Chloride 10 ml 03/12/21 12:26 03/16/21 18:39 Sodium Chloride Flush 0.9% 10 Ml Syringe IVP 30 ml PRN PRN Administration NEEDED PER PROVIDER ORDERS - Lab Result Fish Bone Diagrams: 03/19/21 04:40 03/19/21 06:40 Subjective - Subjective Nursing Reports: Confused Objective Vital Signs: Vital Signs - 24 hr 03/23/21 08:57 Temperature 36.4 C L Heart Rate [ 54 L Monitoring electrodes] Respiratory 20 Rate Blood Pressure 114/59 L [Left Brachial artery] O2 Saturation 100 Oxygen O2 Source Room air Oxygen Flow Rate 2 I&O (Last 24 Hrs): Intake and Output Totals x24h 03/21/21 03/22/21 03/23/21 23:59 23:59 23:59 Intake Total 2100 2878.333 965 Output Total 550 1750 1400 Balance 1550 1128.333 -435 General: Alert, No acute distress HEENT: Atraumatic Neck: Supple Lymphatic: no adenopathy Neuro: Alert Cardiovascular: Regular rate, Normal S1, Normal S2 Respiratory: Chest non-tender, No respiratory distress Abdomen: Normal bowel sounds, Soft Extremities: Normal pulses - Results Results: Laboratory Results WBC 15.2 x10^3/uL (4.8-10.8) H 03/19/21 04:40 RBC 3.36 10^6/uL (4.20-5.40) L 03/19/21 04:40 Hgb 9.4 g/dL (12.0-16.0) L 03/19/21 04:40 Hct 29.0 % (37.0-47.0) L 03/19/21 04:40 MCV 86.3 fL (81.0-99.0) 03/19/21 04:40 MCH 28.0 pg (27.0-31.0) 03/19/21 04:40 MCHC 32.4 g/dL (32.0-36.0) 03/19/21 04:40 RDW 17.9 % (12.0-15.0) H 03/19/21 04:40 Plt Count 196 10^3/uL (130-450) 03/19/21 04:40 MPV 10.5 fL (7.9-10.8) 03/19/21 04:40 Neut # (Auto) 13.3 10^3/uL (1.5-6.6) H 03/19/21 04:40 Lymph # (Auto) 1.0 10^3/uL (1.5-3.5) L 03/19/21 04:40 [place] # (Auto) 0.6 10^3/uL (0.0-1.0) 03/19/21 04:40 Eos # (Auto) 0.3 10^3/uL (0.0-0.7) 03/19/21 04:40 Baso # (Auto) 0.1 10^3/uL (0.0-0.1) 03/19/21 04:40 Absolute Nucleated RBC 0.00 x10^3/uL 03/19/21 04:40 Total Counted 100 03/17/21 05:10 Band Neuts % (Manual) 0 % (0-10) 03/17/21 05:10 Abnorm Lymph % (Manual) 0 % 03/17/21 05:10 Nucleated RBC % 0.0 /100WBC 03/19/21 04:40 Neutrophils # (Manual) 18.9 10^3/uL (1.5-6.6) H 03/17/21 05:10 Lymphocytes # (Manual) 3.0 10^3/uL (1.5-3.5) 03/17/21 05:10 Monocytes # (Manual) 0.7 10^3/uL (0.0-1.0) 03/17/21 05:10 Eosinophils # (Manual) 0.5 10^3/uL (0-0.7) 03/17/21 05:10 Basophils # (Manual) 0.0 10^3/uL (0-0.1) 03/17/21 05:10 Differential Comment MANUAL DIFFERENTIAL 03/17/21 05:10 Manual Slide Review Indicated 03/12/21 10:38 WBC Morphology NORMAL APPEARANCE (NORMAL) 03/17/21 05:10 Platelet Estimate NORMAL (130-450,000) (NORMAL) 03/17/21 05:10 Platelet Morphology NORMAL APPEARANCE (NORMAL) 03/17/21 05:10 RBC Morph Micro Appear 1+ AURELIA CELLS (NORMAL) 03/17/21 05:10 PT 17.7 secs (9.9-12.6) H 03/12/21 13:10 INR 1.6 (0.8-1.2) H 03/12/21 13:10 VBG pH 7.382 (7.31-7.41) 03/16/21 13:15 Ionized Calcium 1.16 mmol/L (1.15-1.33) 03/16/21 13:15 Sodium 141 mmol/L (135-145) 03/19/21 06:40 Potassium 2.9 mmol/L (3.5-5.0) L 03/19/21 06:40 Chloride 115 mmol/L (101-111) H 03/19/21 06:40 Carbon Dioxide 17 mmol/L (21-32) L 03/19/21 06:40 Anion Gap 9.0 (6-13) 03/19/21 06:40 BUN 12 mg/dL (6-20) 03/19/21 06:40 Creatinine 0.5 mg/dL (0.4-1.0) 03/19/21 06:40 Estimated GFR (MDRD) 117 (>89) 03/19/21 06:40 Glucose 90 mg/dL (70-100) 03/19/21 06:40 POC Whole Bld Glucose 70 mg/dL (70 - 100) 03/19/21 23:42 Lactic Acid 1.1 mmol/L (0.5-2.2) 03/18/21 10:03 Calcium 7.3 mg/dL (8.5-10.3) L 03/19/21 06:40 Phosphorus 2.1 mg/dL (2.5-4.6) L 03/19/21 06:40 Magnesium 1.5 mg/dL (1.7-2.8) L 03/19/21 04:40 Total Bilirubin 0.9 mg/dL (0.2-1.0) 03/18/21 06:00 AST 44 IU/L (10-42) H 03/18/21 06:00 ALT 51 IU/L (10-60) 03/18/21 06:00 Alkaline Phosphatase 131 IU/L (42-121) H 03/18/21 06:00 Total Creatine Kinase 12 IU/L (22-269) L 03/12/21 15:08 Troponin I High Sens 63.9 ng/L (2.3-14.8) H* 03/12/21 15:08 B-Natriuretic Peptide 230 pg/mL (5-100) H 03/12/21 11:31 Total Protein 4.2 g/dL (6.7-8.2) L 03/18/21 06:00 Albumin 1.7 g/dL (3.2-5.5) L 03/18/21 06:00 Globulin 2.5 g/dL (2.1-4.2) 03/18/21 06:00 Albumin/Globulin Ratio 0.7 (1.0-2.2) L 03/18/21 06:00 Prealbumin 3 mg/dL (18-45) L 03/18/21 06:00 Lipase 40 U/L (22-51) 03/12/21 11:31 Urine Color BROWN 03/17/21 11:25 Urine Clarity CLOUDY (CLEAR) 03/17/21 11:25 Urine pH 5.5 PH (5.0-7.5) 03/17/21 11:25 Ur Specific [place] 1.025 (1.002-1.030) 03/17/21 11:25 Urine Protein 100 mg/dL (NEGATIVE) H 03/17/21 11:25 Urine Glucose (UA) NEGATIVE mg/dL (NEGATIVE) 03/17/21 11:25 Urine Ketones NEGATIVE mg/dL (NEGATIVE) 03/17/21 11:25 Urine Occult Blood LARGE (NEGATIVE) H 03/17/21 11:25 Urine Nitrite NEGATIVE (NEGATIVE) 03/17/21 11:25 Urine Bilirubin NEGATIVE (NEGATIVE) 03/17/21 11:25 Urine Urobilinogen 0.2 (NORMAL) E.U./dL (NORMAL) 03/17/21 11:25 Ur Leukocyte Esterase LARGE (NEGATIVE) H 03/17/21 11:25 Urine RBC TNTC /HPF (0-5) H 03/17/21 11:25 Urine WBC 6-10 /HPF (0-5) H 03/17/21 11:25 Ur Squamous Epith Cells NONE SEEN (<= Few) 03/17/21 11:25 Urine Bacteria Few /HPF (None Seen) 03/17/21 11:25 Urine Yeast PRESENT 03/17/21 11:25 Ur Microscopic Review INDICATED 03/12/21 22:48 Urine Culture Comments INDICATED 03/17/21 11:25 Urine Creatinine 31.9 mg/dL 03/17/21 11:25 Urine Sodium 64.0 mmol/L 03/17/21 11:25 Urine Potassium 46.1 mmol/L 03/17/21 11:25 Nasal Adenovirus (PCR) NOT DETECTED 03/20/21 13:40 Nasal B. parapertussis DNA (PCR) NOT DETECTED 03/20/21 13:40 Nasal Coronavir 229E PCR NOT DETECTED 03/20/21 13:40 Nasal Coronavir HKU1 PCR NOT DETECTED 03/20/21 13:40 Nasal Coronavir NL63 PCR NOT DETECTED 03/20/21 13:40 Nasal Coronavir OC43 PCR NOT DETECTED 03/20/21 13:40 Nasal Enterovir/Rhinovir PCR NOT DETECTED 03/20/21 13:40 Nasal Influenza B PCR NOT DETECTED 03/20/21 13:40 Nasal Influenza A PCR NOT DETECTED 03/20/21 13:40 Nasal Parainfluen 1 PCR NOT DETECTED 03/20/21 13:40 Nasal Parainfluen 2 PCR NOT DETECTED 03/20/21 13:40 Nasal Parainfluen 3 PCR NOT DETECTED 03/20/21 13:40 Nasal Parainfluen 4 PCR NOT DETECTED 03/20/21 13:40 Nasal RSV (PCR) NOT DETECTED 03/20/21 13:40 Nasal Screen MRSA (PCR) NEGATIVE (NEGATIVE) 03/12/21 14:15 Nasal B.pertussis DNA PCR NOT DETECTED 03/20/21 13:40 Nasal C.pneumoniae (PCR) NOT DETECTED 03/20/21 13:40 Brian Human Metapneumo PCR NOT DETECTED 03/20/21 13:40 Nasal M.pneumoniae (PCR) NOT DETECTED 03/20/21 13:40 Nasal SARS-CoV-2 (PCR) NOT DETECTED 03/20/21 13:40 Last Dose Date Not Reportable 03/17/21 09:53 Last Dose Time Not Reportable 03/17/21 09:53 Vancomycin Trough 11.3 ug/mL (10.0-20.0) 03/17/21 09:53 - Procedures Procedures: Procedures EXCISION OF ASCENDING COLON, ENDO, DIAGN (07/05/16) EXCISION OF DESCENDING COLON, ENDO, DIAGN (07/05/16) EXCISION OF RECTUM, ENDO, DIAGN (07/05/16) EXCISION OF SIGMOID COLON, ENDO, DIAGN (07/05/16) EXCISION OF TRANSVERSE COLON, ENDO, DIAGN (07/05/16) Sepsis Event Note (H) - Evaluation Current Stage of Sepsis: Severe sepsis Possible source of Sepsis: positive: Genitourinary - Sepsis Criteria Sepsis Criteria: Recorded Heart Rate greater than 90 bpm, WBC count greater than 12,000 or less than 4000, BUSINESS DEVELOPMENT RECRUITER: altered consciousness (unrelated to primary neuro pathology), Renal: urine output less than 0.5ml/kg/hr for 2 hours or creatinine gr, Metabolic: lactate > 2 mmol/L ABX Reporting Has patient been on IV antibiotics over the past 48 hours?: No Current Medications - Current Medications Current Medications: Active Medications Acetaminophen (Acetaminophen 325 Mg Tablet) 650 mg PO Q4HR PRN PRN Reason: Pain 1 to 4 Carboxymethylcellulose (Carboxymethylcellulose Ophth Drops) 1 drops EACHEYE QID PRN PRN Reason: Dry Eye Potassium Chloride/Dextrose/Sod Cl (D5ns W/20 Meq Kcl) 1,000 mls @ 100 mls/hr IV .Q10H [facility] Last Admin: 03/23/21 10:08 Dose: 100 mls/hr Documented by: Lorazepam (Lorazepam 2 Mg/Ml Vial) 1 mg IVP Q6H PRN PRN Reason: Anxiety/Agitation Morphine Sulfate (Morphine Merle 10 Mg/0.5 Ml Oral Syringe) 10 mg SL Q2HR PRN PRN Reason: PAIN Last Admin: 03/20/21 21:35 Dose: 10 mg Documented by: Multi-Ingredient Mouthwash/Gargle (Gi Cocktail 120 Ml Bottle) 5 ml PO Q2H PRN PRN Reason: Mucositis Multi-Ingredient Ointment (Zinc Oxide 20% Oint 30 Gm Tube) 1 applic TOP PRN PRN PRN Reason: Skin Care Last Admin: 03/16/21 10:54 Dose: 1 applic Documented by: Ondansetron HCl (Ondansetron 4 Mg/2 Ml Vial) 4 mg IVP Q6HR PRN PRN Reason: Nausea / Vomiting Ondansetron HCl (Ondansetron Odt 4 Mg Tablet) 4 mg TL Q6HR PRN PRN Reason: Nausea / Vomiting Polyethylene Glycol (Polyethylene Glycol 3350 17 Gm Packet) 17 gm PO DAILY [facility] Last Admin: 03/23/21 08:57 Dose: Not Given Documented by: Senna (Senna 8.6 Mg Tablet) 8.6 mg PO BID PRN PRN Reason: Constipation Sodium Chloride (Sodium Chloride Flush 0.9% 10 Ml Syringe) 10 ml IVP 0100,0900,1700 [facility] Last Admin: 03/23/21 08:57 Dose: 10 ml Documented by: Sodium Chloride (Sodium Chloride Flush 0.9% 10 Ml Syringe) 10 ml IVP PRN PRN PRN Reason: NEEDED PER PROVIDER ORDERS Last Admin: 03/16/21 18:39 Dose: 30 ml Documented by: Trazodone HCl (Trazodone 50 Mg Tablet) 25 mg PO QPM PRN PRN Reason: Insomnia Atorvastatin [Lipitor] 20 mg PO QPM 03/12/21 Ciprofloxacin HCl 500 mg PO BID 03/12/21 Mirtazapine [Remeron] 7.5 mg PO QPM 03/12/21
[2021-03-24] MEDS: SODIUM CHLORIDE FLUSH 0.9% 10 ML SYRINGE IVP SCH ×3 (01:38→16:03)
[2021-03-24] MEDS: D5NS W/20 MEQ KCL 1,000 ML IV SCH ×2 (05:30→14:59)
[2021-03-24] MEDS: polyethylene glycoL 3350 17 GM PACKET PO SCH (08:55)
--- NOTE | 2021-03-24 12:55 | PROVIDER PROGRESS NOTE ---
Progress Note In review of the chart, she is an elderly female who had a previous history of stroke with residual. She presented with sepsis due to a UTI and had acute renal failure. She had several sacral decubiti due to sedentary status even prior to admission. Levophed was added on March 15 due to hypotension. She continued to be somnolent from admission and improved slightly by March 16. CT scan shows old stroke and volume loss but no acute findings. Nutrition has been a concern and she was started on NG tube feeds. She returned back to being obtunded by March 18 in spite of improving white cell count and hydration. NG tube feeds were stopped due to diarrhea. Weaned off Levophed. Mild A. fib with RVR. In speaking to the sons, palliative care consultation was obtained. Plan is to discharge to [facility] with hospice care. But [facility] cannot take the patient. Apparently she has an $8000 balance that needs to be paid before she can receive back. Currently arrangements are being made with Medicaid to come on board, and back pain that $8000. Plan is for discharge on March 26. The son did think that he could take her home today. But discharge planning spent quite a bit of time with him on the phone explaining to him what care of this unfortunate bedbound elderly woman who is incontinent of urine, stool, with decubiti would mean. He realized that he would not be able to take care of her and agrees with placement. Medications are Tylenol, refresh drops, Ativan, Roxanol, zinc oxide, Zofran, Mepilex for her decub, trazodone. On exam temperature is 36.3. Pulse is 65. Respirations are 16. Blood pressure 127/74. She is 99 to 100% on room air She is 4 foot 10 inches tall, weighs 72.5 kg. She lays flat in the bed, occasionally opens her eyes but is nonverbal. Slow, shallow unlabored respiration. Crackles at mid lung and lung bases and I have to sit her up to be able to do that. Regular rate and rhythm. Abdomen with hypoactive bowel sounds. Nontender. Nondistended. Macdonald catheter in place. She has a sacral/coccyx decubiti with Mepilex. This was present on admission. Legs with severe edema Last glucose checked on March 19 and she was in the 70s. Assessment/plan comfort measures status on an elderly female who did not respond to treatment of sepsis in the face of a patient who is already had residual deficits from her stroke. We have been awaiting financial agreement to be reached between the patient and her insurance companies and/or snf facilities. She has been stable for discharge since approximately the . We will await discharge on March 26.
[2021-03-24] MEDS: SODIUM CHLORIDE FLUSH 0.9% 10 ML SYRINGE IVP PRN (16:03)
[2021-03-25] MEDS: D5NS W/20 MEQ KCL 1,000 ML IV SCH ×3 (00:31→19:32)
[2021-03-25] MEDS: SODIUM CHLORIDE FLUSH 0.9% 10 ML SYRINGE IVP SCH ×4 (00:32→19:33)
[2021-03-25] MEDS: polyethylene glycoL 3350 17 GM PACKET PO SCH (08:55)
--- NOTE | 2021-03-25 17:43 | PROVIDER PROGRESS NOTE ---
Progress Note March 25, 2021 5:39 PM Patient has not had any changes from yesterday today. She is lying comfortably in bed. Eyes are open. I asked her if she is doing well and she responds by saying "I want, I want". But she cannot tell me what it is she wants. She denies pain. Says nothing hurts her. But keeps on repeating "I want". Temperature is 36.3. Pulse is 101. Blood pressure 123/54. Respirations 16. 100% on room air. Remote use in her hand, TV is on. She has right hemiplegia, contracture of the right wrist, internal rotation of the right leg and internal rotation of the right ankle. Speech is intact but not making sense. Regular rate and rhythm Abdomen with hypoactive bowel sounds that is soft and nontender and nondistended Macdonald catheter in place Mepilex continues to cover her sacral decubiti. No cellulitis. Feet with severe edema. So do legs. Assessment/plan Comfort measures only on an elderly female who has not responded to treatment for sepsis and has a history of previous dementia and right hemiplegia from stroke. She is to go to a hospice facility tomorrow.
[2021-03-26] MEDS: D5NS W/20 MEQ KCL 1,000 ML IV SCH ×2 (05:21→18:30)
--- NOTE | 2021-03-26 09:16 | Discharge Plan ---
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 She lives at a group home facility. She presented to our facility for increasing confusion on March 12. She was found to have sepsis with a UTI, shock, and acute renal failure. She was placed in the ICU with Zosyn, fluids, and CAT scan confirmed that there is no urinary obstruction but does have a staghorn calculus that is nonobstructing. While she did respond and sepsis criteria have resolved, she has been left severely deconditioned, weak. Her power of state's attorney has felt that it would be best to transition her to palliative/hospice care because of her overall diminished quality of life. Plan of Treatment: Transfer to inpatient hospice facility Care Goals: To peacefully diet without pain, discomfort Assessment: Power of state's attorney is C[place]rick Head. [phone] No Smoking: If you smoke, Please STOP! Call for help.
[2021-03-26] MEDS: SODIUM CHLORIDE FLUSH 0.9% 10 ML SYRINGE IVP SCH ×2 (09:56→18:30)
[2021-03-26] MEDS: ZINC OXIDE 20% OINT 30 GM TUBE TOP PRN (11:20)
[2021-03-26] MEDS: polyethylene glycoL 3350 17 GM PACKET PO SCH (11:26)
[2021-03-26 16:12] LABS: B. PARAPERTUSSIS- RESP PCR PAN NOT DETECTED; B. PERTUSSIS- RESP PCR PANEL NOT DETECTED; C. PNEUMONIAE- RESP PCR PANEL NOT DETECTED; CORONAVIRUS 229E-RESP PCR NOT DETECTED; CORONAVIRUS HKU1-RESP PCR NOT DETECTED; CORONAVIRUS NL63-RESP PCR NOT DETECTED; CORONAVIRUS OC43-RESP PCR NOT DETECTED; HUMAN METAPNEUMOVIRUS NOT DETECTED; INFLUENZA A- RESP PCR PANEL NOT DETECTED; INFLUENZA B - RESP PCR PANEL NOT DETECTED; M. PNEUMONIAE- RESP PCR PANEL NOT DETECTED; PARAINFLUENZA VIRUS 1 NOT DETECTED; PARAINFLUENZA VIRUS 2 NOT DETECTED; PARAINFLUENZA VIRUS 3 NOT DETECTED; PARAINFLUENZA VIRUS 4 NOT DETECTED; RHINOVIRUS/ENTEROVIRUS NOT DETECTED; RSV- RESP PCR PANEL NOT DETECTED; SARS-CoV-2 -RESP PCR PANEL NOT DETECTED
--- NOTE | 2021-03-26 18:23 | PROVIDER PROGRESS NOTE ---
Progress Note March 26, 2021 6:20 PM Social work has been trying to get this patient discharged all day today. We have been sending paperwork to [facility] and unfortunately their fax machine is not received a paperwork. As such even though they have agreed to take this patient, today's updated notes have not been received and they are wishing to delay their acceptance until tomorrow. The patient herself has had no changes. She denies pain. She spends most of her day sleeping. Temperature is 36.3, pulse is 96, blood pressure 109/85, respirations 20, 94% on room air She has right hemiplegia with contracture of the right wrist, internal rotation of the right leg and internal rotation of the right ankle. The right side of her body is weak and legs flaccid. Left side of her body is what she uses to hold onto the side of the bed rails. 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 Regular rate and rhythm. Abdomen is soft, hypoactive bowel sounds, nontender. Macdonald catheter in place. Mepilex continues to cover her sacral decubiti. No surrounding cellulitis. Feet with severe edema. Assessment/plan Comfort measures only in a elderly female who responded to treatment for sepsis and that sepsis criteria resolved, but she is even more deconditioned and more unaware than before. She has loss of speech ability. Has a hemiplegia. Power of assistant prosecuting attorney has requested transition to hospice. She was supposed to go to hospice today and will be discharged to hospice tomorrow once the paperwork is taking care of.
[2021-03-27] MEDS: D5NS W/20 MEQ KCL 1,000 ML IV SCH ×2 (04:03→13:39)
[2021-03-27] MEDS: SODIUM CHLORIDE FLUSH 0.9% 10 ML SYRINGE IVP SCH ×2 (04:04→09:18)
[2021-03-27] MEDS: polyethylene glycoL 3350 17 GM PACKET PO SCH (09:17)
--- NOTE | 2021-03-27 14:08 | DISCHARGE SUMMARY ---
"Discharge Summary Admit Date: 03/12/21 Discharge Date: 03/27/21 Discharging Provider: Chance Castellon Primary Care Provider: Robert Hernadez Condition at Discharge: Poor Discharge Disposition: 50 Hospice/Home DC/Xfer Discharge Facility Name: [facility] - DIAGNOSES Discharge Diagnoses with Status of Each Condition: 1. Severe sepsis. resolved. pt was in the ICU and on Levophed, and treated with IV antibiotics. Patient's severe sepsis was likely caused by UTI and sacral decubitus ulcer. 2. Protein calorie malnutrition. pt was consulted with palliative care. pt has hx of stroke, she Did not tolerate NG tube placement. Presently on IV hydration. Given the patient's underlying comorbidities and lack of oral intake likely prognosis is days to weeks and friend/DPOA recognizes this. Patient's friend/DPOA does not wish to have artificial nutrition by tube be placed. pt continue to be supported with IV hydration until the patient has been discharged per the friend/DPOA's request with hospice services. 3.Encephalopathy and choric confusion. Pt has hx of stroke with chronic confusion and repeat to say the same thing. With this poor quality of life as well, DPOA ask for comfortable care only status in hospital and followup with hospice care. 4.CVA with residual effects. Patient sustained CVA in 2002 with residual right-sided weakness, progressive worsening. 5.severe Physical deconditioning. pt Present severe physical deconditioning and poor quality of life. DPOA recognize this, patient also was consulted with palliative care. Patient is on comfortable management only in the hospital and to follow-up with hospice care 6.hemiplegia. Due to Stroke, continue support and followup with hospice care. 7.Anorexia and failure to thrive. Patient has very poor appetite, patient failed and did not tolerate NG tube feed ing. 8.Sacral decubitus. left is worsening than right side. continue nurse care, dress change, followup with hospice care. 9.comfortable measure only status with followup with hospice care, per DPOA's request and Palliative care consult. - HPI History of Present Illness: refer from Dr. Wiley's HPI on 03/12/21 This is a 86-year-old female with a past medical history significant for stroke with residual aphasia, paroxysmal atrial fibrillation who presents today due to altered mental status from [facility]. History from the patient is limited due to her encephalopathy. The patient was reportedly diagnosed with a urinary tract infection about 5 days ago and treated with ciprofloxacin on an outpatient basis. They noticed overnight she had a change in her mental status with decreased oral intake and so she was brought for evaluation this morning. The patient was seen in our emergency department back in November of this year for sepsis secondary to urinary tract infection and at that time she had obstructed left stone. She was transferred to [facility] for intervention and ended up having a ureteral stent placed. Her most recent urine culture grew Klebsiella pneumonia which was sensitive to ciprofloxacin that she was prescribed. In the emergency department, she was afebrile but noted to be tachycardic with heart rates in the 150s and in atrial fibrillation. She was not hypoxic or tachypneic. Labs were significant for a white count of 32.7 with a left shift. Her hemoglobin was 16.2. Her creatinine is elevated at 2.8, BUN 91, potassium at 6.9. Her bicarbonate was 10. Lactic acid elevated at 5. Her troponin was 63.2. She was given IV fluids and IV ceftriaxone based off of prior cultures which grew Klebsiella. CT of the abdomen pelvis contrast showed no hydronephrosis but did reveal a left staghorn calculi. Given the above findings, medicine was consulted for admission. I did attempt to contact her son twice to discuss goals of care but I am unable to reach him. The patient is unable to express her wishes. The emergency department physician told me that the patient's family expressed that she is a full code and so she will be made a full code for the time being. - CONSULTS | PROCEDURES Consultations: palliative care consult - HOSPITAL COURSE Hospital Course: Patient was admitted for acute encephalopathy with severe sepsis, acute renal failure, UTI, H fibrillation with rapid ventricular response, Metabolic acidosis, With history of stroke and right side deficit. Patient developed sepsis shock and transferred to the ICU with Levophed. Patient cannot tolerate NG tube feeding with poor appetite. After the patient was treated with intravenous antibiotics, intravenous IV fluids, his severe sepsis is resolved. But the patient continued to have poor quality of life, Anorexia and failure to thrive, And severe physical deconditioning. Palliative care was consulted. DPOA Ask comfortable managing in the hospital and have hospice care follow-up. Patient is discharged to [place] inpatient hospice care. - ALLERGIES Allergies/Adverse Reactions: Allergies Allergy/AdvReac Type Severity Reaction Status Date / Time No Known Drug Allergies Allergy Verified 03/12/21 09:23 - MEDICATIONS Home Medications: Ambulatory Orders Medication Instructions Recorded Confirmed Acetaminophen [Tylenol] 650 mg PO Q4HR PRN tablet 03/26/21 Carboxymethylcellulose 1% Opht 1 drops EACHEYE QID PRN drops 03/26/21 [Refresh 1% Ophth Drops] Morphine Oral Soln [Roxanol] 10 mg SL Q2HR PRN 03/26/21 Ondansetron Odt [Zofran Odt] 4 mg TL Q6HR PRN tablet 03/26/21 Zinc Oxide 20% Oint [Zinc Oxide] 1 applic TOP PRN PRN 03/26/21 traZODone [Desyrel] 25 mg PO QPM PRN tablet 03/26/21 - PHYSICAL EXAM AT DISCHARGE General Appearance: positive: No acute distress, Alert, Lethargic Eyes Bilateral: positive: Normal inspection, No lid inflammation ENT: positive: ENT inspection nml. negative: Purulent nasal drainage Neck: positive: Nml inspection, Trachea midline. negative: Tracheal deviation Respiratory: positive: Chest non-tender, No respiratory distress. negative: Wheezes Cardiovascular: positive: Regular rate & rhythm, Tachycardia. negative: Pal cardia, Systolic murmur Peripheral Pulses: positive: 2+ Abdomen: positive: Non-tender, No distention, Abnml bowel sounds (Hypoactive bowel sounds). negative: Tenderness Skin: positive: Warm, Dry, Other (Left Sacral decubitus at stage 2/3 is worsed than right side.). negative: Cyanosis Extremities: positive: Non-tender, Other (right side with hemiplegia) Neurologic/Psychiatric: positive: Disoriented to person, Disoriented to place, Disoriented to time, Weakness. negative: Facial droop - LABS Result Diagrams: 03/19/21 04:40 03/19/21 06:40 - SEPSIS Current Stage of Sepsis: Severe sepsis Possible source of Sepsis: Genitourinary Sepsis Criteria: Recorded Heart Rate greater than 90 bpm, WBC count greater than 12,000 or less than 4000, [employer]: altered consciousness (unrelated to primary neuro pathology), Renal: urine output less than 0.5ml/kg/hr for 2 hours or creatinine gr, Metabolic: lactate > 2 mmol/L - FOLLOW UP Follow Up: followup with hospice care in [place]. - TIME SPENT Time Spent in Discharge (Minutes): 30"
[2021-03-27 16:12] VITALS: BP 112/89
== END 2021-03-27 16:16 | disposition hospice, home (50) | DRG 871 ==
LOC: EDUNIT# → ED 09:09 → ICU 12:26 → MS3 03-19 00:01
PROVIDERS: ADMIT Internal Medicine; ATTEND Nurse Practitioner Gerontology
PROC: 02HV33Z Insertion of Infusion Device into Superior Vena Cava, Percutaneous Approach (ICD-10-PCS; principal; 2021-03-14)
DX: A41.9 Sepsis, unspecified organism (principal); A41.59 Other Gram-negative sepsis; R65.20 Severe sepsis without septic shock; R65.21 Severe sepsis with septic shock; E43 Unspecified severe protein-calorie malnutrition; G93.49 Other encephalopathy; I48.91 Unspecified atrial fibrillation; Z86.73 Personal history of transient ischemic attack (TIA), and cerebral infarction without residual deficits; N39.0 Urinary tract infection, site not specified; N17.9 Acute kidney failure, unspecified; E87.2 Acidosis; I69.351 Hemiplegia and hemiparesis following cerebral infarction affecting right dominant side; E87.0 Hyperosmolality and hypernatremia; E86.0 Dehydration; I48.0 Paroxysmal atrial fibrillation; E87.5 Hyperkalemia; R41.82 Altered mental status, unspecified; N20.0 Calculus of kidney; Z87.442 Personal history of urinary calculi; I69.320 Aphasia following cerebral infarction; R62.7 Adult failure to thrive; Z68.24 Body mass index [BMI] 24.0-24.9, adult; R63.0 Anorexia; Z51.5 Encounter for palliative care; L89.159 Pressure ulcer of sacral region, unspecified stage; Z96.0 Presence of urogenital implants; Z66 Do not resuscitate; R32 Unspecified urinary incontinence; R19.7 Diarrhea, unspecified; E16.1 Other hypoglycemia; Z20.822 Contact with and (suspected) exposure to COVID-19; E87.6 Hypokalemia; E88.09 Other disorders of plasma-protein metabolism, not elsewhere classified; R13.10 Dysphagia, unspecified; E83.42 Hypomagnesemia; R15.9 Full incontinence of feces; F03.90 Unspecified dementia, unspecified severity, without behavioral disturbance, psychotic disturbance, mood disturbance, and anxiety; R53.1 Weakness
CPT/HCPCS: 36415; 70450; 71045; 74176; 80048; 80053; 80202; 81001; 82330; 82550; 82570; 83605; 83690; 83735; 83880; 84100; 84132; 84133; 84134; 84300; 84484; 85025; 85610; 87040; 87086; 87150; 87631; 93005; 93306; 94640; 96374; 96375; 96376; 99222; 99231; 99285; 99291; A9270; C1751; J1815; J3370; J7040; J7120; P9047; 0202U; 81003; 82803